=== PATIENT | female | born 1950 | race Caucasian/White ===

== ENCOUNTER 2017-05-21 14:48 | Inpatient (IN) | payer MEDICARE ==
[~2017-05-21] VITALS: Ht 162.6 cm; Wt 115.7 kg
[2017-05-21] VITALS (8 sets, daily range): BP systolic 97–134; BP diastolic 62–74
[~2017-05-21 14:48] MED LIST: CRESTOR20 MG PO; DIPH-121 PO; IBUP-1027 PO; LEVO88TA2 PO; VORT10TA PO
[2017-05-21 15:18] LABS: BASO % 0 % (0-3); EOS % 0 % (0-3); HEMATOCRIT 29.2 % (36.0-47.0); HEMOGLOBIN 9.7 g/dL (12.0-15.5); LYMPH # 1.8 x10^3/uL (1.0-4.8); LYMPH % 10 % (24-48); MEAN CORPUSCULAR HEMOGLOBIN 33 pg (25-35); MEAN CORPUSCULAR HGB CONC 33 g/dL (31-37); MEAN CORPUSCULAR VOLUME 98 fL (79-100); MONO % 5 % (0-9); NEUT % 85 % (31-73); PLATELET COUNT 367 x10^3/uL (140-400); RED BLOOD COUNT 2.98 x10^6/uL (3.50-5.40); RED CELL DISTRIBUTION WIDTH 13.3 % (11.5-14.5); WHITE BLOOD COUNT 18.5 x10^3/uL (4.0-11.0)
[2017-05-21 15:25] LABS: CALCIUM 8.2 mg/dL (8.5-10.1); CREATININE 1.2 mg/dL (0.6-1.0); GFR 44.5
--- NOTE | 2017-05-21 15:32 | EKG ---
[facility] [address] [place] [address] Test Date: 2017-05-21 Test Time: 15:19:21 Pat Name: NATHAN BAIN Department: Room: Gender: F Toe Former: : 1950 Requested By: ROMEO LAGUNA Order Number: [id number] Reading MD: Karl Johnston Measurements Intervals [place] Rate: 125 P: 26 TX: 132 QRS: 12 QRSD: 74 T: 51 QT: 306 QTc: 443 Interpretive Statements SINUS TACHYCARDIA RI6.01 Unconfirmed report Compared to ECG 06/03/2015 08:33:31 Sinus rhythm no longer present Electronically Signed On 06-09-2017 10:36:09 CDT by Karl Johnston
[2017-05-21 15:34] LABS: INR 1.1 (0.8-1.1); PROTHROMBIN TIME PATIENT 13.5 SEC (11.7-14.0)
[2017-05-21 15:43] LABS: ALBUMIN 3.3 g/dL (3.4-5.0); ALBUMIN/GLOBULIN RATIO 1.2 (1.0-1.7); TOTAL BILIRUBIN 0.3 mg/dL (0.2-1.0)
[2017-05-21] MEDS ORDERED: IV NORMAL SALINE 1000ML BAG 1,000 ML IV ONE (16:00)
--- NOTE | 2017-05-21 16:06 | RAD ---
EXAM: CHEST 1 VIEW History: GI bleed COMPARISON: None available TECHNIQUE: Single portable radiograph of the chest FINDINGS: The cardiac silhouette is unremarkable. The lungs are clear bilaterally. The costophrenic sulci are clear and well demarcated. IMPRESSION: No radiographic evidence of an acute cardiopulmonary process.
[2017-05-21] MEDS ORDERED: MORPHINE SULFATE 2 MG/ML DISP.SYRIN. IV PRN (16:45)
[2017-05-21] MEDS ORDERED: ONDANSETRON PF 4 MG/2 ML VIAL. IV PRN (16:45)
[2017-05-21] MEDS ORDERED: ACETAMINOPHEN 325 MG TABLET. PO PRN (16:45)
[2017-05-21 17:02] LABS: OVALOCYTES OCC; PLT ESTIMATE INCREASED (ADEQUATE); POLYCHROMASIA SLIGHT; TARGET CELLS OCC
--- NOTE | 2017-05-21 19:59 | PHYS DOC ---
Past Medical History Past Medical History: Depression, Diverticulitis, High Cholesterol Additional Past Medical Histor: Thyroid DZ,GI BLEED Past Surgical History: Appendectomy, Cholecystectomy, Hysterectomy Alcohol Use: None Drug Use: None Adult General Chief Complaint Chief Complaint: BLOODY STOOL HPI HPI Patient is a 67 year old female who presents here today secondary to rectal bleeding. Patient reports she has a history significant for diverticulitis. Patient reports she had 2 episodes of syncope today. Patient reports that she went to the bathroom and she had a massive amount of bloody stools. Patient reports she does feel dizzy. Patient reports positive nausea and vomiting for 1 day. Patient has any fevers shakes chills. Patient complaining of left lower quadrant abdominal pain. Patient admits to diarrhea. Patient has any hypertension diabetes liver kidney or lung problems. Patient denies any prior strokes. Patient had a cholecystectomy and a hysterectomy in the past. Patient does not smoke drink or do any drugs. Review of systems: Constitutional: Denies fever or chills Eyes: Denies change in visual acuity, redness, or eye pain HENT: Denies nasal congestion or sore throat All other review systems are negative except as documented in the history of present illness portion. Physical exam: Constitutional: Well developed, well nourished, no acute distress, non-toxic appearance. HENT: Normocephalic, atraumatic, bilateral external ears normal, oropharynx moist, no oral exudates, nose normal. Eyes: PERRLA, EOMI, conjunctiva normal, no discharge. Neck: Normal range of motion, no tenderness, supple, no stridor. Cardiovascular:Heart rate regular rhythm, Lungs & Thorax: Bilateral breath sounds clear to auscultation Abdomen: Bowel sounds normal, soft, no tenderness, no masses, no pulsatile masses. Skin: Warm, dry, no erythema, no rash. Back: No tenderness, no CVA tenderness. Extremities: No tenderness, no cyanosis, no clubbing, ROM intact, no edema. Neurologic: Alert and oriented X 3, normal motor function, normal sensory function, no focal deficits noted. Psychologic: Affect normal, judgement normal, mood normal. Rectal shows gross heme positive bloody stool. Assessment and plan 67-year-old female with lower GI bleed likely secondary to her history diverticulitis. Patient is anemic and tachycardic to heart rate of 120. Patient will be admitted to the ICU for further management of her acute GI bleed. Patient was typed and crossed and given 2 units of packed red blood cells. I discussed the case with Dr. Constantino's service for his PA as well as Dr. Velez agrees with the current plan to admit the patient. Critical care time of 35 minutes were utilizing a treatment and management this patient's lower GI bleed. Was exclusive of all procedures. Current Medications Current Medications Current Medications Medications (Trade) Dose Ordered Sig/Tatiana Start Time Stop Time Status Last Admin Dose Admin Acetaminophen (Tylenol) 650 mg PRN Q4HRS PRN 05/21/17 16:45 05/22/17 16:44 Morphine Sulfate 2 mg PRN Q2HR PRN 05/21/17 16:45 05/22/17 16:44 Ondansetron HCl (Zofran) 4 mg PRN Q8HRS PRN 05/21/17 16:45 05/22/17 16:44 Sodium Chloride 1,000 ml @ 125 mls/hr Q8H 05/21/17 16:36 05/22/17 16:35 Allergies Allergies Allergies Coded Allergies Type Severity Reaction Last Updated Verified latex Allergy Intermediate 01/01/16 Yes Current Patient Data Vital Signs Vital Signs Date Time Temp Pulse Resp B/P (MAP) Pulse Ox O2 Delivery O2 Flow Rate FiO2 05/21/17 14:48 99.4 120 18 93/56 (68) 96 Room Air 99.4 EKG reveals sinus tachycardia [address]-T wave abnormalities. No evidence of ST elevation PR. Lab Values Laboratory Tests Test 05/21/17 15:04 White Blood Count 18.5 x10^3/uL (4.0-11.0) H Red Blood Count 2.98 x10^6/uL (3.50-5.40) L Hemoglobin 9.7 g/dL (12.0-15.5) L Hematocrit 29.2 % (36.0-47.0) L Mean Corpuscular Volume 98 fL (79-100) Mean Corpuscular Hemoglobin 33 pg (25-35) Mean Corpuscular Hemoglobin Concent 33 g/dL (31-37) Red Cell Distribution Width 13.3 % (11.5-14.5) Platelet Count 367 x10^3/uL (140-400) Neutrophils (%) (Auto) 85 % (31-73) H Lymphocytes (%) (Auto) 10 % (24-48) L Monocytes (%) (Auto) 5 % (0-9) Eosinophils (%) (Auto) 0 % (0-3) Basophils (%) (Auto) 0 % (0-3) Neutrophils # (Auto) 15.8 x10^3uL (1.8-7.7) H Lymphocytes # (Auto) 1.8 x10^3/uL (1.0-4.8) Monocytes # (Auto) 0.9 x10^3/uL (0.0-1.1) Eosinophils # (Auto) 0.0 x10^3/uL (0.0-0.7) Basophils # (Auto) 0.0 x10^3/uL (0.0-0.2) Segmented Neutrophils % 93 % (35-66) H Lymphocytes % 7 % (24-48) L Platelet Estimate Increased (ADEQUATE) Large Platelets Occ Polychromasia Slight Target Cells Occ Ovalocytes Occ Prothrombin Time 13.5 SEC (11.7-14.0) Prothrombin Time INR 1.1 (0.8-1.1) Sodium Level 143 mmol/L (136-145) Potassium Level 4.0 mmol/L (3.5-5.1) Chloride Level 107 mmol/L (98-107) Carbon Dioxide Level 23 mmol/L (21-32) Anion Gap 13 (6-14) Blood Urea Nitrogen 32 mg/dL (7-20) H Creatinine 1.2 mg/dL (0.6-1.0) H Estimated GFR (Cockcroft-Gault) 44.5 BUN/Creatinine Ratio 27 (6-20) H Glucose Level 156 mg/dL (70-99) H Calcium Level 8.2 mg/dL (8.5-10.1) L Total Bilirubin 0.3 mg/dL (0.2-1.0) Aspartate Amino Transferase (AST) 12 U/L (15-37) L Alanine Aminotransferase (ALT) 30 U/L (14-59) Alkaline Phosphatase 89 U/L (46-116) Troponin I Quantitative < 0.017 ng/mL (0.000-0.055) Total Protein 6.0 g/dL (6.4-8.2) L Albumin 3.3 g/dL (3.4-5.0) L Albumin/Globulin Ratio 1.2 (1.0-1.7) Laboratory Tests 05/21/17 15:04 Laboratory Tests 05/21/17 15:04 EKG EKG [] Radiology/Procedures Radiology/Procedures [] Course & Med Decision Making Course & Med Decision Making Pertinent Labs and Imaging studies reviewed. (See chart for details) [] Dragon Disclaimer Dragon Disclaimer This electronic medical record was generated, in whole or in part, using a voice recognition dictation system. Departure Departure Impression: Primary Impression: GI bleed Additional Impression: Tachycardia Disposition: ADMITTED INPATIENT Admitting Physician: Mo Brown Condition: GOOD Referrals: MO BROWN MD (PCP) Problem Qualifiers ROMEO LAGUNA MD May 21, 2017 19:59
[2017-05-21 20:58] LABS: HEMATOCRIT 25.8 % (36.0-47.0); HEMOGLOBIN 8.7 g/dL (12.0-15.5); RED BLOOD COUNT 2.66 x10^6/uL (3.50-5.40); RED CELL DISTRIBUTION WIDTH 13.4 % (11.5-14.5); WHITE BLOOD COUNT 16.4 x10^3/uL (4.0-11.0)
[2017-05-22] VITALS (22 sets, daily range): BP systolic 98–170; BP diastolic 54–79
[2017-05-22] MEDS: IV NORMAL SALINE 1000ML BAG 1,000 ML IV SCH ×3 (00:58→22:01)
[2017-05-22 05:01] LABS: BASO % 0 % (0-3); EOS % 0 % (0-3); HEMATOCRIT 22.9 % (36.0-47.0); HEMOGLOBIN 7.9 g/dL (12.0-15.5); LYMPH # 2.7 x10^3/uL (1.0-4.8); LYMPH % 21 % (24-48); MEAN CORPUSCULAR HEMOGLOBIN 33 pg (25-35); MEAN CORPUSCULAR HGB CONC 34 g/dL (31-37); MEAN CORPUSCULAR VOLUME 97 fL (79-100); MONO % 9 % (0-9); NEUT % 70 % (31-73); PLATELET COUNT 290 x10^3/uL (140-400); RED BLOOD COUNT 2.36 x10^6/uL (3.50-5.40); RED CELL DISTRIBUTION WIDTH 13.5 % (11.5-14.5); WHITE BLOOD COUNT 13.1 x10^3/uL (4.0-11.0)
--- NOTE | 2017-05-22 09:02 | PDOC ---
GENERAL General: blood pressures low side and tachycardic at 110 bpm. awake and alert. chest clear, heart mildly tachycardic, and abdomen benign. Hb down to 7.9 this am. will continue to monitor in icu at least till GI sees and clears to go up to telemetry. see dictated H&P. Problems: VITAL SIGNS Vital Signs: Vital Signs Date Time Temp Pulse Resp B/P (MAP) Pulse Ox O2 Delivery O2 Flow Rate FiO2 05/22/17 06:00 114 18 120/57 (78) 96 05/22/17 04:00 Room Air 05/22/17 04:00 98.8 98.8 ALLERGIES Allergies: Allergies Coded Allergies Type Severity Reaction Last Updated Verified latex Allergy Intermediate 01/01/16 Yes MEDS Medications: Current Medications Medications (Trade) Dose Ordered Sig/Tatiana Start Time Stop Time Status Last Admin Dose Admin Acetaminophen (Tylenol) 650 mg PRN Q4HRS PRN 05/21/17 16:45 05/22/17 16:44 Morphine Sulfate 2 mg PRN Q2HR PRN 05/21/17 16:45 05/22/17 16:44 Ondansetron HCl (Zofran) 4 mg PRN Q8HRS PRN 05/21/17 16:45 05/22/17 16:44 Sodium Chloride 1,000 ml @ 125 mls/hr Q8H 05/21/17 16:36 05/22/17 16:35 05/22/17 00:58 125 MLS/HR LAB Lab: Laboratory Tests Test 05/21/17 15:04 05/21/17 20:30 05/22/17 04:00 White Blood Count 18.5 x10^3/uL (4.0-11.0) 16.4 x10^3/uL (4.0-11.0) 13.1 x10^3/uL (4.0-11.0) Red Blood Count 2.98 x10^6/uL (3.50-5.40) 2.66 x10^6/uL (3.50-5.40) 2.36 x10^6/uL (3.50-5.40) Hemoglobin 9.7 g/dL (12.0-15.5) 8.7 g/dL (12.0-15.5) 7.9 g/dL (12.0-15.5) Hematocrit 29.2 % (36.0-47.0) 25.8 % (36.0-47.0) 22.9 % (36.0-47.0) Mean Corpuscular Volume 98 fL (79-100) 97 fL (79-100) 97 fL (79-100) Mean Corpuscular Hemoglobin 33 pg (25-35) 33 pg (25-35) 33 pg (25-35) Mean Corpuscular Hemoglobin Concent 33 g/dL (31-37) 34 g/dL (31-37) 34 g/dL (31-37) Red Cell Distribution Width 13.3 % (11.5-14.5) 13.4 % (11.5-14.5) 13.5 % (11.5-14.5) Platelet Count 367 x10^3/uL (140-400) 318 x10^3/uL (140-400) 290 x10^3/uL (140-400) Neutrophils (%) (Auto) 85 % (31-73) 70 % (31-73) Lymphocytes (%) (Auto) 10 % (24-48) 21 % (24-48) Monocytes (%) (Auto) 5 % (0-9) 9 % (0-9) Eosinophils (%) (Auto) 0 % (0-3) 0 % (0-3) Basophils (%) (Auto) 0 % (0-3) 0 % (0-3) Neutrophils # (Auto) 15.8 x10^3uL (1.8-7.7) 9.1 x10^3uL (1.8-7.7) Lymphocytes # (Auto) 1.8 x10^3/uL (1.0-4.8) 2.7 x10^3/uL (1.0-4.8) Monocytes # (Auto) 0.9 x10^3/uL (0.0-1.1) 1.1 x10^3/uL (0.0-1.1) Eosinophils # (Auto) 0.0 x10^3/uL (0.0-0.7) 0.0 x10^3/uL (0.0-0.7) Basophils # (Auto) 0.0 x10^3/uL (0.0-0.2) 0.0 x10^3/uL (0.0-0.2) Segmented Neutrophils % 93 % (35-66) Lymphocytes % 7 % (24-48) Platelet Estimate Increased (ADEQUATE) Large Platelets Occ Polychromasia Slight Target Cells Occ Ovalocytes Occ Prothrombin Time 13.5 SEC (11.7-14.0) Prothromb Time International Ratio 1.1 (0.8-1.1) Sodium Level 143 mmol/L (136-145) Potassium Level 4.0 mmol/L (3.5-5.1) Chloride Level 107 mmol/L (98-107) Carbon Dioxide Level 23 mmol/L (21-32) Anion Gap 13 (6-14) Blood Urea Nitrogen 32 mg/dL (7-20) Creatinine 1.2 mg/dL (0.6-1.0) Estimated GFR (Cockcroft-Gault) 44.5 BUN/Creatinine Ratio 27 (6-20) Glucose Level 156 mg/dL (70-99) Calcium Level 8.2 mg/dL (8.5-10.1) Total Bilirubin 0.3 mg/dL (0.2-1.0) Aspartate Amino Transf (AST/SGOT) 12 U/L (15-37) Alanine Aminotransferase (ALT/SGPT) 30 U/L (14-59) Alkaline Phosphatase 89 U/L (46-116) Troponin I Quantitative < 0.017 ng/mL (0.000-0.055) Total Protein 6.0 g/dL (6.4-8.2) Albumin 3.3 g/dL (3.4-5.0) Albumin/Globulin Ratio 1.2 (1.0-1.7) MO REED MD May 22, 2017 09:02
--- NOTE | 2017-05-22 10:09 | HP ---
ADMIT DATE: 05/21/2017 CHIEF COMPLAINT AND HISTORY OF PRESENT ILLNESS: This 67-year-old white female who is well known to me from followup in the office. The patient had a GI bleed beginning the night before admission with what she describes as more of a maroon kind of blood all over the bathroom. She had 2 episodes of syncope with this. She finally presented to the Emergency Room, where she had ongoing GI bleeding. Hemoglobin was in the 9s, was tachycardic, somewhat relatively hypotensive and admitted to the ICU for lower GI bleed. PAST MEDICAL HISTORY: Remarkable for depression, diverticulosis, hyperlipidemia, hypothyroidism, prior some GI bleeding but of a mild degree. PAST SURGICAL HISTORY: Remarkable for appendectomy, cholecystectomy and hysterectomy. MEDICATIONS: Brought with the patient, listed on the computer and have been addressed. ALLERGIES: SHE IS ALLERGIC TO LATEX. SOCIAL HISTORY: She is nonsmoker, nondrinker, does not use drugs. She is , lives at home alone currently, but has a son that lives with her off and on. FAMILY HISTORY: Noncontributory. REVIEW OF SYSTEMS: Remarkable for her still feeling quite weak compared to normal. She denies any abdominal pain with this. She does note a little bit of shortness of breath when she tries to move around which is new. PHYSICAL EXAMINATION: GENERAL: She is well-developed, well-nourished white female, in no acute distress. VITAL SIGNS: Stable. She is afebrile, blood pressures are in the upper 90s, pulse is about approximately 110. HEAD, EYES, EARS, NOSE AND THROAT: Remarkable for some mild pallor of the conjunctiva. NECK: Supple, without adenopathy or thyromegaly. CHEST: Clear to auscultation and percussion. HEART: Slightly tachycardic. Regular without S3, S4, or murmur. ABDOMEN: Soft, nontender, without hepatosplenomegaly or mass. EXTREMITIES: Without cyanosis, clubbing or edema. NEUROLOGIC: She is intact. LABORATORY DATA: Hemoglobin has dropped to 7.9 in the morning following admission from the 9s. She has had no further stools at this point in time with blood. IMPRESSION: Lower gastrointestinal bleed with anemia, multiple other problems listed above. PLAN: The patient has been admitted. She has been monitored in the ICU. GI has been consulted, IV has been placed. Blood has been typed and crossed and ready for transfusion. The patient will be monitored, managed and treated appropriately. MO REED MD DR: VEGA/alfredo JOB#: [id number] / [id number]
--- NOTE | 2017-05-22 11:28 | PDOC2 ---
CONSULT Date of Consult Date of Consult DATE: 05/22/17 TIME: 11:25 Reason for Consult Reason for Consult: Acute blood loss anemia/rectal bleed/hx diverticular bleed Current Problem List Problem List Problems Medical Problems: (1) GI bleed Status: Acute (2) Tachycardia Status: Acute Current Medications Current Medications Current Medications Sodium Chloride 1,000 ml @ 1,000 mls/hr 1X ONCE IV Last administered on 17:02; Start 05/21/17 at 16:00; Stop 05/21/17 at 16:59; Status DC Ondansetron HCl (Zofran) 4 mg PRN Q8HRS PRN IV NAUSEA/VOMITING; Start 05/21/17 at 16:45; Stop 05/22/17 at 16:44 Morphine Sulfate 2 mg PRN Q2HR PRN IV PAIN; Start 05/21/17 at 16:45; Stop 05/22 at 16:44 Sodium Chloride 1,000 ml @ 125 mls/hr Q8H IV Last administered on 05/22/17 09 :15; Start 05/21/17 at 16:36; Stop 05/22/17 at 16:35 Acetaminophen (Tylenol) 650 mg PRN Q4HRS PRN PO FEVER; Start 05/21/17 at 16:45 ; Stop 05/22/17 at 16:44 Active Scripts Active Reported Brintellix (Vortioxetine) 10 Mg Tablet 10 Mg PO DAILY Crestor (Rosuvastatin Calcium) 20 Mg Tablet 20 Mg PO HS Synthroid (Levothyroxine Sodium) 88 Mcg Tablet 88 Mcg PO DAILYAC Ibuprofen 400 Mg Tablet 200 Mg PO PRN Q6HRS PRN Benadryl Allergy (Diphenhydramine Hcl) 12.5 Mg/5 Ml Liquid 12.5 Mg PO PRN DAILY PRN Allergies Allergies: Coded Allergies: latex (Verified Allergy, Intermediate, 01/01/16) Vitals VITALS Vital Signs Date Time Temp Pulse Resp B/P (MAP) Pulse Ox O2 Delivery O2 Flow Rate FiO2 05/22/17 10:48 97.7 112 14 129/64 (85) 98 Room Air 97.7 Labs Labs Laboratory Tests Test 05/21/17 15:04 05/21/17 20:30 05/22/17 04:00 White Blood Count 18.5 x10^3/uL (4.0-11.0) 16.4 x10^3/uL (4.0-11.0) 13.1 x10^3/uL (4.0-11.0) Red Blood Count 2.98 x10^6/uL (3.50-5.40) 2.66 x10^6/uL (3.50-5.40) 2.36 x10^6/uL (3.50-5.40) Hemoglobin 9.7 g/dL (12.0-15.5) 8.7 g/dL (12.0-15.5) 7.9 g/dL (12.0-15.5) Hematocrit 29.2 % (36.0-47.0) 25.8 % (36.0-47.0) 22.9 % (36.0-47.0) Mean Corpuscular Volume 98 fL (79-100) 97 fL (79-100) 97 fL (79-100) Mean Corpuscular Hemoglobin 33 pg (25-35) 33 pg (25-35) 33 pg (25-35) Mean Corpuscular Hemoglobin Concent 33 g/dL (31-37) 34 g/dL (31-37) 34 g/dL (31-37) Red Cell Distribution Width 13.3 % (11.5-14.5) 13.4 % (11.5-14.5) 13.5 % (11.5-14.5) Platelet Count 367 x10^3/uL (140-400) 318 x10^3/uL (140-400) 290 x10^3/uL (140-400) Neutrophils (%) (Auto) 85 % (31-73) 70 % (31-73) Lymphocytes (%) (Auto) 10 % (24-48) 21 % (24-48) Monocytes (%) (Auto) 5 % (0-9) 9 % (0-9) Eosinophils (%) (Auto) 0 % (0-3) 0 % (0-3) Basophils (%) (Auto) 0 % (0-3) 0 % (0-3) Neutrophils # (Auto) 15.8 x10^3uL (1.8-7.7) 9.1 x10^3uL (1.8-7.7) Lymphocytes # (Auto) 1.8 x10^3/uL (1.0-4.8) 2.7 x10^3/uL (1.0-4.8) Monocytes # (Auto) 0.9 x10^3/uL (0.0-1.1) 1.1 x10^3/uL (0.0-1.1) Eosinophils # (Auto) 0.0 x10^3/uL (0.0-0.7) 0.0 x10^3/uL (0.0-0.7) Basophils # (Auto) 0.0 x10^3/uL (0.0-0.2) 0.0 x10^3/uL (0.0-0.2) Segmented Neutrophils % 93 % (35-66) Lymphocytes % 7 % (24-48) Platelet Estimate Increased (ADEQUATE) Large Platelets Occ Polychromasia Slight Target Cells Occ Ovalocytes Occ Prothrombin Time 13.5 SEC (11.7-14.0) Prothromb Time International Ratio 1.1 (0.8-1.1) Sodium Level 143 mmol/L (136-145) Potassium Level 4.0 mmol/L (3.5-5.1) Chloride Level 107 mmol/L (98-107) Carbon Dioxide Level 23 mmol/L (21-32) Anion Gap 13 (6-14) Blood Urea Nitrogen 32 mg/dL (7-20) Creatinine 1.2 mg/dL (0.6-1.0) Estimated GFR (Cockcroft-Gault) 44.5 BUN/Creatinine Ratio 27 (6-20) Glucose Level 156 mg/dL (70-99) Calcium Level 8.2 mg/dL (8.5-10.1) Total Bilirubin 0.3 mg/dL (0.2-1.0) Aspartate Amino Transf (AST/SGOT) 12 U/L (15-37) Alanine Aminotransferase (ALT/SGPT) 30 U/L (14-59) Alkaline Phosphatase 89 U/L (46-116) Troponin I Quantitative < 0.017 ng/mL (0.000-0.055) Total Protein 6.0 g/dL (6.4-8.2) Albumin 3.3 g/dL (3.4-5.0) Albumin/Globulin Ratio 1.2 (1.0-1.7) Laboratory Tests Test 05/21/17 15:04 05/21/17 20:30 05/22/17 04:00 White Blood Count 18.5 x10^3/uL (4.0-11.0) 16.4 x10^3/uL (4.0-11.0) 13.1 x10^3/uL (4.0-11.0) Red Blood Count 2.98 x10^6/uL (3.50-5.40) 2.66 x10^6/uL (3.50-5.40) 2.36 x10^6/uL (3.50-5.40) Hemoglobin 9.7 g/dL (12.0-15.5) 8.7 g/dL (12.0-15.5) 7.9 g/dL (12.0-15.5) Hematocrit 29.2 % (36.0-47.0) 25.8 % (36.0-47.0) 22.9 % (36.0-47.0) Mean Corpuscular Volume 98 fL (79-100) 97 fL (79-100) 97 fL (79-100) Mean Corpuscular Hemoglobin 33 pg (25-35) 33 pg (25-35) 33 pg (25-35) Mean Corpuscular Hemoglobin Concent 33 g/dL (31-37) 34 g/dL (31-37) 34 g/dL (31-37) Red Cell Distribution Width 13.3 % (11.5-14.5) 13.4 % (11.5-14.5) 13.5 % (11.5-14.5) Platelet Count 367 x10^3/uL (140-400) 318 x10^3/uL (140-400) 290 x10^3/uL (140-400) Neutrophils (%) (Auto) 85 % (31-73) 70 % (31-73) Lymphocytes (%) (Auto) 10 % (24-48) 21 % (24-48) Monocytes (%) (Auto) 5 % (0-9) 9 % (0-9) Eosinophils (%) (Auto) 0 % (0-3) 0 % (0-3) Basophils (%) (Auto) 0 % (0-3) 0 % (0-3) Neutrophils # (Auto) 15.8 x10^3uL (1.8-7.7) 9.1 x10^3uL (1.8-7.7) Lymphocytes # (Auto) 1.8 x10^3/uL (1.0-4.8) 2.7 x10^3/uL (1.0-4.8) Monocytes # (Auto) 0.9 x10^3/uL (0.0-1.1) 1.1 x10^3/uL (0.0-1.1) Eosinophils # (Auto) 0.0 x10^3/uL (0.0-0.7) 0.0 x10^3/uL (0.0-0.7) Basophils # (Auto) 0.0 x10^3/uL (0.0-0.2) 0.0 x10^3/uL (0.0-0.2) Segmented Neutrophils % 93 % (35-66) Lymphocytes % 7 % (24-48) Platelet Estimate Increased (ADEQUATE) Large Platelets Occ Polychromasia Slight Target Cells Occ Ovalocytes Occ Prothrombin Time 13.5 SEC (11.7-14.0) Prothromb Time International Ratio 1.1 (0.8-1.1) Sodium Level 143 mmol/L (136-145) Potassium Level 4.0 mmol/L (3.5-5.1) Chloride Level 107 mmol/L (98-107) Carbon Dioxide Level 23 mmol/L (21-32) Anion Gap 13 (6-14) Blood Urea Nitrogen 32 mg/dL (7-20) Creatinine 1.2 mg/dL (0.6-1.0) Estimated GFR (Cockcroft-Gault) 44.5 BUN/Creatinine Ratio 27 (6-20) Glucose Level 156 mg/dL (70-99) Calcium Level 8.2 mg/dL (8.5-10.1) Total Bilirubin 0.3 mg/dL (0.2-1.0) Aspartate Amino Transf (AST/SGOT) 12 U/L (15-37) Alanine Aminotransferase (ALT/SGPT) 30 U/L (14-59) Alkaline Phosphatase 89 U/L (46-116) Troponin I Quantitative < 0.017 ng/mL (0.000-0.055) Total Protein 6.0 g/dL (6.4-8.2) Albumin 3.3 g/dL (3.4-5.0) Albumin/Globulin Ratio 1.2 (1.0-1.7) Assessment/Plan Assessment/Plan Rectal bleed- with acute blood loss anemia, most likely secondary to recurrent diverticular bleed. Ischemic colitis, PUD, and/or SB source possible as well Plan serial cbcs/transfusionsal support to maintain Hg >8 acid suppressive therapy bleeding scan and/or EGD if bleeding resumes Ful note dictated MICHEAL GODDARD MD May 22, 2017 11:28
[2017-05-22] MEDS: PANTOPRAZOLE 40 MG TABLET.DR. PO SCH (12:18)
[2017-05-22 19:07] LABS: BASO # 0.1 x10^3/uL (0.0-0.2); BASO % 1 % (0-3); EOS % 1 % (0-3); HEMATOCRIT 23.2 % (36.0-47.0); HEMOGLOBIN 7.7 g/dL (12.0-15.5); LYMPH # 3.1 x10^3/uL (1.0-4.8); LYMPH % 27 % (24-48); MEAN CORPUSCULAR HEMOGLOBIN 33 pg (25-35); MEAN CORPUSCULAR HGB CONC 33 g/dL (31-37); MEAN CORPUSCULAR VOLUME 99 fL (79-100); MONO % 7 % (0-9); NEUT % 65 % (31-73); PLATELET COUNT 293 x10^3/uL (140-400); RED BLOOD COUNT 2.36 x10^6/uL (3.50-5.40); RED CELL DISTRIBUTION WIDTH 13.8 % (11.5-14.5); WHITE BLOOD COUNT 11.7 x10^3/uL (4.0-11.0)
--- NOTE | 2017-05-22 23:55 | CONS ---
DATE OF CONSULTATION: 05/22/2017 REASON FOR CONSULTATION: Hematochezia and acute blood loss anemia. HISTORY OF PRESENT ILLNESS: This is a 67-year-old female with past medical history significant for diverticular disease, hyperlipidemia, hypothyroidism, status post appendectomy, hysterectomy, cholecystectomy, was admitted to [facility] with rectal bleeding, had syncopal episodes at home. Finally, called 911, she was then brought to the hospital. Denies any NSAID use and/or blood thinners. Previous colonoscopy did reveal diverticular disease in the past year. Denies any coffee-ground emesis or hematemesis at this time, has been admitted with a slight drop in her hemoglobin and hematocrit since admission, but no further bleeding. PAST MEDICAL AND SURGICAL HISTORY: Hypothyroidism, hyperlipidemia, history of diverticular bleeds, depression, status post appendectomy, cholecystectomy, hysterectomy. ALLERGIES: TO LATEX. MEDICATIONS: Include morphine, Zofran and acetaminophen. SOCIAL HISTORY: She lives alone. Does not drink or smoke. FAMILY HISTORY: Noncontributory. REVIEW OF SYSTEMS: Per records. PHYSICAL EXAMINATION: GENERAL: Reveals a pale white female who is alert, cooperative, in no acute distress. VITAL SIGNS: Temperature 97.7, pulse 112, respiratory rate 14, blood pressure is 129/64. HEENT: Normocephalic and atraumatic head. Pupils and extraocular muscles not tested. Sclerae anicteric. NECK: Supple. LUNGS: Clear. CARDIOVASCULAR: Reveals an S1, S2 without S3, S4 or appreciable murmur. ABDOMEN: Reveals a soft abdomen, normal bowel sounds without appreciable hepatosplenomegaly. EXTREMITIES: Reveals no cyanosis, clubbing or edema. Multiple surgical incisions are noted. IMPRESSION: Rectal bleeding, acute blood loss anemia, most likely secondary to recurrent diverticular bleed. We will add proton pump therapy to her medical regimen. Follow serial blood counts and consider upper endoscopy. The patient should continue with blood as previous colonoscopy has been significant only for the diverticular disease. I would like to thank Dr. Kevin tobias for allowing us to consult and participate in patient's care. MICHEAL GODDARD MD DR: JOSE DAVID/alfredo JOB#: [id number] / [id number]
[2017-05-23] VITALS (25 sets, daily range): BP systolic 98–159; BP diastolic 46–84
[2017-05-23 06:08] LABS: BASO % 1 % (0-3); EOS % 3 % (0-3); HEMOGLOBIN 7.1 g/dL (12.0-15.5); LYMPH # 2.1 x10^3/uL (1.0-4.8); LYMPH % 28 % (24-48); MEAN CORPUSCULAR HEMOGLOBIN 33 pg (25-35); MEAN CORPUSCULAR HGB CONC 35 g/dL (31-37); MEAN CORPUSCULAR VOLUME 97 fL (79-100); MONO % 8 % (0-9); NEUT % 61 % (31-73); PLATELET COUNT 269 x10^3/uL (140-400); RED BLOOD COUNT 2.13 x10^6/uL (3.50-5.40); RED CELL DISTRIBUTION WIDTH 13.6 % (11.5-14.5); WHITE BLOOD COUNT 7.6 x10^3/uL (4.0-11.0)
[2017-05-23 06:41] LABS: HEMATOCRIT 20.6 % (36.0-47.0)
[2017-05-23] MEDS: IV NORMAL SALINE 1000ML BAG 1,000 ML IV SCH ×2 (09:00→21:31)
[2017-05-23] MEDS: ACETAMINOPHEN 325 MG TABLET. PO PRN (10:42)
[2017-05-23] MEDS: PANTOPRAZOLE 40 MG TABLET.DR. PO SCH (10:42)
--- NOTE | 2017-05-23 12:13 | PDOC ---
G I PROGRESS NOTE Reason for Follow-up Acute blood loss anemia/hematochezia Subjective No further blood per rectum Physical Exam Lungs clear CV S1 S2 ABD +BS, soft, nontender Review of Relevant I have reviewed the following items gabriel (where applicable) has been applied. Labs Laboratory Tests Test 05/21/17 15:04 05/21/17 20:30 05/21/17 22:05 05/22/17 04:00 White Blood Count 18.5 x10^3/uL (4.0-11.0) 16.4 x10^3/uL (4.0-11.0) 13.1 x10^3/uL (4.0-11.0) Red Blood Count 2.98 x10^6/uL (3.50-5.40) 2.66 x10^6/uL (3.50-5.40) 2.36 x10^6/uL (3.50-5.40) Hemoglobin 9.7 g/dL (12.0-15.5) 8.7 g/dL (12.0-15.5) 7.9 g/dL (12.0-15.5) Hematocrit 29.2 % (36.0-47.0) 25.8 % (36.0-47.0) 22.9 % (36.0-47.0) Mean Corpuscular Volume 98 fL (79-100) 97 fL (79-100) 97 fL (79-100) Mean Corpuscular Hemoglobin 33 pg (25-35) 33 pg (25-35) 33 pg (25-35) Mean Corpuscular Hemoglobin Concent 33 g/dL (31-37) 34 g/dL (31-37) 34 g/dL (31-37) Red Cell Distribution Width 13.3 % (11.5-14.5) 13.4 % (11.5-14.5) 13.5 % (11.5-14.5) Platelet Count 367 x10^3/uL (140-400) 318 x10^3/uL (140-400) 290 x10^3/uL (140-400) Neutrophils (%) (Auto) 85 % (31-73) 70 % (31-73) Lymphocytes (%) (Auto) 10 % (24-48) 21 % (24-48) Monocytes (%) (Auto) 5 % (0-9) 9 % (0-9) Eosinophils (%) (Auto) 0 % (0-3) 0 % (0-3) Basophils (%) (Auto) 0 % (0-3) 0 % (0-3) Neutrophils # (Auto) 15.8 x10^3uL (1.8-7.7) 9.1 x10^3uL (1.8-7.7) Lymphocytes # (Auto) 1.8 x10^3/uL (1.0-4.8) 2.7 x10^3/uL (1.0-4.8) Monocytes # (Auto) 0.9 x10^3/uL (0.0-1.1) 1.1 x10^3/uL (0.0-1.1) Eosinophils # (Auto) 0.0 x10^3/uL (0.0-0.7) 0.0 x10^3/uL (0.0-0.7) Basophils # (Auto) 0.0 x10^3/uL (0.0-0.2) 0.0 x10^3/uL (0.0-0.2) Segmented Neutrophils % 93 % (35-66) Lymphocytes % 7 % (24-48) Platelet Estimate Increased (ADEQUATE) Large Platelets Occ Polychromasia Slight Target Cells Occ Ovalocytes Occ Prothrombin Time 13.5 SEC (11.7-14.0) Prothromb Time International Ratio 1.1 (0.8-1.1) Sodium Level 143 mmol/L (136-145) Potassium Level 4.0 mmol/L (3.5-5.1) Chloride Level 107 mmol/L (98-107) Carbon Dioxide Level 23 mmol/L (21-32) Anion Gap 13 (6-14) Blood Urea Nitrogen 32 mg/dL (7-20) Creatinine 1.2 mg/dL (0.6-1.0) Estimated GFR (Cockcroft-Gault) 44.5 BUN/Creatinine Ratio 27 (6-20) Glucose Level 156 mg/dL (70-99) Calcium Level 8.2 mg/dL (8.5-10.1) Total Bilirubin 0.3 mg/dL (0.2-1.0) Aspartate Amino Transf (AST/SGOT) 12 U/L (15-37) Alanine Aminotransferase (ALT/SGPT) 30 U/L (14-59) Alkaline Phosphatase 89 U/L (46-116) Troponin I Quantitative < 0.017 ng/mL (0.000-0.055) Total Protein 6.0 g/dL (6.4-8.2) Albumin 3.3 g/dL (3.4-5.0) Albumin/Globulin Ratio 1.2 (1.0-1.7) Nasal Screen MRSA (PCR) Negative (Negative) Test 05/22/17 18:35 05/23/17 05:40 White Blood Count 11.7 x10^3/uL (4.0-11.0) 7.6 x10^3/uL (4.0-11.0) Red Blood Count 2.36 x10^6/uL (3.50-5.40) 2.13 x10^6/uL (3.50-5.40) Hemoglobin 7.7 g/dL (12.0-15.5) 7.1 g/dL (12.0-15.5) Hematocrit 23.2 % (36.0-47.0) 20.6 % (36.0-47.0) Mean Corpuscular Volume 99 fL (79-100) 97 fL (79-100) Mean Corpuscular Hemoglobin 33 pg (25-35) 33 pg (25-35) Mean Corpuscular Hemoglobin Concent 33 g/dL (31-37) 35 g/dL (31-37) Red Cell Distribution Width 13.8 % (11.5-14.5) 13.6 % (11.5-14.5) Platelet Count 293 x10^3/uL (140-400) 269 x10^3/uL (140-400) Neutrophils (%) (Auto) 65 % (31-73) 61 % (31-73) Lymphocytes (%) (Auto) 27 % (24-48) 28 % (24-48) Monocytes (%) (Auto) 7 % (0-9) 8 % (0-9) Eosinophils (%) (Auto) 1 % (0-3) 3 % (0-3) Basophils (%) (Auto) 1 % (0-3) 1 % (0-3) Neutrophils # (Auto) 7.6 x10^3uL (1.8-7.7) 4.7 x10^3uL (1.8-7.7) Lymphocytes # (Auto) 3.1 x10^3/uL (1.0-4.8) 2.1 x10^3/uL (1.0-4.8) Monocytes # (Auto) 0.8 x10^3/uL (0.0-1.1) 0.6 x10^3/uL (0.0-1.1) Eosinophils # (Auto) 0.2 x10^3/uL (0.0-0.7) 0.2 x10^3/uL (0.0-0.7) Basophils # (Auto) 0.1 x10^3/uL (0.0-0.2) 0.0 x10^3/uL (0.0-0.2) Laboratory Tests Test 05/22/17 18:35 05/23/17 05:40 White Blood Count 11.7 x10^3/uL (4.0-11.0) 7.6 x10^3/uL (4.0-11.0) Red Blood Count 2.36 x10^6/uL (3.50-5.40) 2.13 x10^6/uL (3.50-5.40) Hemoglobin 7.7 g/dL (12.0-15.5) 7.1 g/dL (12.0-15.5) Hematocrit 23.2 % (36.0-47.0) 20.6 % (36.0-47.0) Mean Corpuscular Volume 99 fL (79-100) 97 fL (79-100) Mean Corpuscular Hemoglobin 33 pg (25-35) 33 pg (25-35) Mean Corpuscular Hemoglobin Concent 33 g/dL (31-37) 35 g/dL (31-37) Red Cell Distribution Width 13.8 % (11.5-14.5) 13.6 % (11.5-14.5) Platelet Count 293 x10^3/uL (140-400) 269 x10^3/uL (140-400) Neutrophils (%) (Auto) 65 % (31-73) 61 % (31-73) Lymphocytes (%) (Auto) 27 % (24-48) 28 % (24-48) Monocytes (%) (Auto) 7 % (0-9) 8 % (0-9) Eosinophils (%) (Auto) 1 % (0-3) 3 % (0-3) Basophils (%) (Auto) 1 % (0-3) 1 % (0-3) Neutrophils # (Auto) 7.6 x10^3uL (1.8-7.7) 4.7 x10^3uL (1.8-7.7) Lymphocytes # (Auto) 3.1 x10^3/uL (1.0-4.8) 2.1 x10^3/uL (1.0-4.8) Monocytes # (Auto) 0.8 x10^3/uL (0.0-1.1) 0.6 x10^3/uL (0.0-1.1) Eosinophils # (Auto) 0.2 x10^3/uL (0.0-0.7) 0.2 x10^3/uL (0.0-0.7) Basophils # (Auto) 0.1 x10^3/uL (0.0-0.2) 0.0 x10^3/uL (0.0-0.2) Medications Current Medications Sodium Chloride 1,000 ml @ 1,000 mls/hr 1X ONCE IV Last administered on 17:02; Start 05/21/17 at 16:00; Stop 05/21/17 at 16:59; Status DC Ondansetron HCl (Zofran) 4 mg PRN Q8HRS PRN IV NAUSEA/VOMITING; Start 05/21/17 at 16:45; Stop 05/22/17 at 16:44; Status DC Morphine Sulfate 2 mg PRN Q2HR PRN IV PAIN; Start 05/21/17 at 16:45; Stop 05/22 at 16:44; Status DC Sodium Chloride 1,000 ml @ 125 mls/hr Q8H IV Last administered on 05/22/17 09 :15; Start 05/21/17 at 16:36; Stop 05/22/17 at 16:35; Status DC Acetaminophen (Tylenol) 650 mg PRN Q4HRS PRN PO FEVER; Start 05/21/17 at 16:45 ; Stop 05/22/17 at 16:44; Status DC Pantoprazole Sodium (Protonix) 40 mg DAILYAC PO Last administered on 05/23/17 10:42; Start 05/22/17 at 12:00 Sodium Chloride 1,000 ml @ 100 mls/hr Q10H IV Last administered on 05/23/17 09:00; Start 05/22/17 at 22:00 Acetaminophen (Tylenol) 650 mg PRN Q4HRS PRN PO MILD PAIN / TEMP Last administered on 05/23/17 10:42; Start 05/23/17 at 08:45 Active Scripts Active Reported Brintellix (Vortioxetine) 10 Mg Tablet 10 Mg PO DAILY Crestor (Rosuvastatin Calcium) 20 Mg Tablet 20 Mg PO HS Synthroid (Levothyroxine Sodium) 88 Mcg Tablet 88 Mcg PO DAILYAC Ibuprofen 400 Mg Tablet 200 Mg PO PRN Q6HRS PRN Benadryl Allergy (Diphenhydramine Hcl) 12.5 Mg/5 Ml Liquid 12.5 Mg PO PRN DAILY PRN Vitals/I & O Vital Sign - Last 24 Hours 05/22/17 05/22/17 05/22/17 05/22/17 12:50 13:23 14:00 15:00 Temp 98.1 98.1 98.1 98.1 Pulse 102 110 110 112 Resp B/P (MAP) 131/59 (83) 123/56 (78) 144/72 (96) 126/61 (82) Pulse Ox 98 90 98 O2 Delivery Room Air Room Air Room Air Room Air 05/22/17 05/22/17 05/22/17 05/22/17 16:00 16:00 17:00 18:00 Temp 98.2 98.2 Pulse 102 106 104 Resp B/P (MAP) 139/73 (95) 107/54 (71) 170/79 (109) Pulse Ox 95 92 92 O2 Delivery Room Air Room Air Room Air Room Air 05/22/17 05/22/17 05/22/17 05/22/17 19:00 20:00 20:00 21:00 Temp 98.3 98.3 Pulse 101 102 100 Resp B/P (MAP) 123/59 (80) 125/64 (84) 116/61 (79) Pulse Ox 94 95 95 O2 Delivery Room Air Room Air Room Air Room Air 05/22/17 05/22/17 05/22/17 05/22/17 22:00 23:00 23:59 23:59 Temp 98.2 98.2 Pulse 97 94 100 Resp 20 20 20 B/P (MAP) 119/59 (79) 120/57 (78) 122/67 (85) Pulse Ox 95 94 93 O2 Delivery Room Air Room Air Room Air Room Air 05/23/17 05/23/17 05/23/17 05/23/17 01:00 02:00 03:00 04:00 Pulse 99 103 97 Resp 17 B/P (MAP) 110/48 (68) 114/61 (78) 115/69 (84) Pulse Ox 95 94 96 O2 Delivery Room Air Room Air Room Air Room Air 05/23/17 05/23/17 05/23/17 05/23/17 04:00 05:00 06:00 07:00 Temp 98.6 98.6 Pulse 101 98 100 104 Resp 17 21 B/P (MAP) 98/59 (72) 110/59 (76) 112/64 (80) 113/58 (76) Pulse Ox 93 95 93 95 O2 Delivery Room Air Room Air Room Air Room Air Intake and Output 05/23/17 05/23/17 05/24/17 15:00 23:00 07:00 Output Total 900 ml Balance -900 ml Problem List Problems Medical Problems: (1) GI bleed Status: Acute (2) Tachycardia Status: Acute Assessment Acute blood loss anemia- Hg drifting despite no further overt bleeding. will transfuse 1 unit PRBC, recheck Hg in am, diverticular source most likely, EGD/ bleeding scan if anemia worsens MICHEAL GODDARD MD May 23, 2017 12:13
--- NOTE | 2017-05-23 12:25 | PDOC ---
SUBJECTIVE Subjective no further bleeding clinically but Hb dropped significantly OBJECTIVE Vital Signs Vital Signs Date Time Temp Pulse Resp B/P (MAP) Pulse Ox O2 Delivery O2 Flow Rate FiO2 05/23/17 07:00 104 21 113/58 (76) 95 Room Air 05/23/17 06:00 100 17 112/64 (80) 93 Room Air 05/23/17 05:00 98 17 110/59 (76) 95 Room Air 05/23/17 04:00 98.6 101 20 98/59 (72) 93 Room Air 98.6 05/23/17 04:00 Room Air 05/23/17 03:00 97 17 115/69 (84) 96 Room Air 05/23/17 02:00 103 16 114/61 (78) 94 Room Air 05/23/17 01:00 99 20 110/48 (68) 95 Room Air 05/22/17 23:59 98.2 100 20 122/67 (85) 93 Room Air 98.2 05/22/17 23:59 Room Air 05/22/17 23:00 94 20 120/57 (78) 94 Room Air 05/22/17 22:00 97 20 119/59 (79) 95 Room Air 05/22/17 21:00 100 17 116/61 (79) 95 Room Air 05/22/17 20:00 98.3 102 15 125/64 (84) 95 Room Air 98.3 05/22/17 20:00 Room Air 05/22/17 19:00 101 15 123/59 (80) 94 Room Air 05/22/17 18:00 104 22 170/79 (109) 92 Room Air 05/22/17 17:00 106 19 107/54 (71) 92 Room Air 05/22/17 16:00 Room Air 05/22/17 16:00 98.2 102 17 139/73 (95) 95 Room Air 98.2 05/22/17 15:00 112 26 126/61 (82) 98 Room Air 05/22/17 14:00 110 29 144/72 (96) 90 Room Air 05/22/17 13:23 98.1 110 21 123/56 (78) 98 Room Air 98.1 05/22/17 12:50 98.1 102 20 131/59 (83) Room Air 98.1 I & O Intake and Output 05/24/17 07:00 Output Total 900 ml Balance -900 ml Output Urine Total 900 ml PHYSICAL EXAM Physical Exam lungs clear heart RRR abd soft ext no edema has L knee pain ASSESSMENT/PLAN Assessment/Plan 1-lower GI bleed, hematochezia 2-acute blood loss anemia , transfusion today Hb post transfusion and In AM 3-Hx diverticulosis 4-HTN 5-HLD 6-hypothyroidism continue to monitor Hb, trnsfusion today, Dr. Brown will resume care in AM Problems: COMMENT Lab Laboratory Tests Test 05/22/17 18:35 05/23/17 05:40 White Blood Count 11.7 x10^3/uL (4.0-11.0) 7.6 x10^3/uL (4.0-11.0) Red Blood Count 2.36 x10^6/uL (3.50-5.40) 2.13 x10^6/uL (3.50-5.40) Hemoglobin 7.7 g/dL (12.0-15.5) 7.1 g/dL (12.0-15.5) Hematocrit 23.2 % (36.0-47.0) 20.6 % (36.0-47.0) Mean Corpuscular Volume 99 fL (79-100) 97 fL (79-100) Mean Corpuscular Hemoglobin 33 pg (25-35) 33 pg (25-35) Mean Corpuscular Hemoglobin Concent 33 g/dL (31-37) 35 g/dL (31-37) Red Cell Distribution Width 13.8 % (11.5-14.5) 13.6 % (11.5-14.5) Platelet Count 293 x10^3/uL (140-400) 269 x10^3/uL (140-400) Neutrophils (%) (Auto) 65 % (31-73) 61 % (31-73) Lymphocytes (%) (Auto) 27 % (24-48) 28 % (24-48) Monocytes (%) (Auto) 7 % (0-9) 8 % (0-9) Eosinophils (%) (Auto) 1 % (0-3) 3 % (0-3) Basophils (%) (Auto) 1 % (0-3) 1 % (0-3) Neutrophils # (Auto) 7.6 x10^3uL (1.8-7.7) 4.7 x10^3uL (1.8-7.7) Lymphocytes # (Auto) 3.1 x10^3/uL (1.0-4.8) 2.1 x10^3/uL (1.0-4.8) Monocytes # (Auto) 0.8 x10^3/uL (0.0-1.1) 0.6 x10^3/uL (0.0-1.1) Eosinophils # (Auto) 0.2 x10^3/uL (0.0-0.7) 0.2 x10^3/uL (0.0-0.7) Basophils # (Auto) 0.1 x10^3/uL (0.0-0.2) 0.0 x10^3/uL (0.0-0.2) ISIDRO LEE MD May 23, 2017 12:25
[2017-05-23] MEDS ORDERED: DULO60CA6 PO (12:53)
[2017-05-23] MEDS: DULoxetine HCL 30 MG CAPSULE.DR PO SCH (14:27)
[2017-05-23] MEDS: LEVOTHYROXINE 88 MCG TABLET PO SCH (14:27)
[2017-05-23 18:21] LABS: HEMATOCRIT 25.2 % (36.0-47.0); HEMOGLOBIN 8.5 g/dL (12.0-15.5); RED BLOOD COUNT 2.64 x10^6/uL (3.50-5.40); RED CELL DISTRIBUTION WIDTH 14.6 % (11.5-14.5); WHITE BLOOD COUNT 7.5 x10^3/uL (4.0-11.0)
[2017-05-23] MEDS: ATORVASTATIN CALCIUM 40 MG TABLET. PO SCH (20:48)
[2017-05-24] VITALS (24 sets, daily range): BP systolic 111–164; BP diastolic 53–79
[2017-05-24] MEDS: IV NORMAL SALINE 1000ML BAG 1,000 ML IV SCH ×3 (05:41→18:15)
[2017-05-24 06:00] LABS: BASO % 1 % (0-3); EOS % 4 % (0-3); HEMATOCRIT 24.5 % (36.0-47.0); HEMOGLOBIN 8.3 g/dL (12.0-15.5); LYMPH # 1.7 x10^3/uL (1.0-4.8); LYMPH % 27 % (24-48); MEAN CORPUSCULAR HEMOGLOBIN 32 pg (25-35); MEAN CORPUSCULAR HGB CONC 34 g/dL (31-37); MEAN CORPUSCULAR VOLUME 96 fL (79-100); MONO % 9 % (0-9); NEUT % 60 % (31-73); PLATELET COUNT 267 x10^3/uL (140-400); RED BLOOD COUNT 2.56 x10^6/uL (3.50-5.40); RED CELL DISTRIBUTION WIDTH 14.7 % (11.5-14.5); WHITE BLOOD COUNT 6.3 x10^3/uL (4.0-11.0)
[2017-05-24 06:18] LABS: CREATININE 0.5 mg/dL (0.6-1.0); GFR 122.3; POTASSIUM 3.1 mmol/L (3.5-5.1)
[2017-05-24] MEDS: PANTOPRAZOLE 40 MG TABLET.DR. PO SCH (08:11)
[2017-05-24] MEDS: LEVOTHYROXINE 88 MCG TABLET PO SCH (08:11)
[2017-05-24] MEDS: DULoxetine HCL 30 MG CAPSULE.DR PO SCH (08:11)
--- NOTE | 2017-05-24 09:08 | PDOC ---
Subjective: Subjective: Feeling much better. No recurrent bleeding. Feels hungry, wants to go home - has a miniature Schnauzer to care for. Objective: Vital Signs: Vital Signs Date Time Temp Pulse Resp B/P (MAP) Pulse Ox O2 Delivery O2 Flow Rate FiO2 05/24/17 06:00 98 16 130/62 (84) 95 Room Air 05/24/17 04:00 98.9 98.9 Labs: Laboratory Tests Test 05/23/17 18:00 05/24/17 05:15 White Blood Count 7.5 x10^3/uL 6.3 x10^3/uL Red Blood Count 2.64 x10^6/uL 2.56 x10^6/uL Hemoglobin 8.5 g/dL 8.3 g/dL Hematocrit 25.2 % 24.5 % Mean Corpuscular Volume 95 fL 96 fL Mean Corpuscular Hemoglobin 32 pg 32 pg Mean Corpuscular Hemoglobin Concent 34 g/dL 34 g/dL Red Cell Distribution Width 14.6 % 14.7 % Platelet Count 275 x10^3/uL 267 x10^3/uL Neutrophils (%) (Auto) 60 % Lymphocytes (%) (Auto) 27 % Monocytes (%) (Auto) 9 % Eosinophils (%) (Auto) 4 % Basophils (%) (Auto) 1 % Neutrophils # (Auto) 3.8 x10^3uL Lymphocytes # (Auto) 1.7 x10^3/uL Monocytes # (Auto) 0.6 x10^3/uL Eosinophils # (Auto) 0.2 x10^3/uL Basophils # (Auto) 0.0 x10^3/uL Sodium Level 144 mmol/L Potassium Level 3.1 mmol/L Chloride Level 109 mmol/L Carbon Dioxide Level 26 mmol/L Anion Gap 9 Blood Urea Nitrogen 6 mg/dL Creatinine 0.5 mg/dL Estimated GFR (Cockcroft-Gault) 122.3 Glucose Level 94 mg/dL Calcium Level 8.0 mg/dL PE: GEN: NAD LUNGS: CTAB HEART: tachycardic ABD: S/ND/NT NEURO/PSYCH: A & O 3 A/P: Hematochezia - resolved -last colonoscopy 2015 -likely recurrent diverticular bleed Anemia -Hgb stable (8.5 yesterday, 8.3 today), improved s/p transfusion 1 unit pRBCs -- Stable Hgb w/o recurrent bleeding. Try clears, ADAT. Okay to transfer out of ICU per GI. DANYA FAJARDO May 24, 2017 09:08
[2017-05-24 15:23] LABS: HEMOGLOBIN 8.1 g/dL (12.0-15.5); RED BLOOD COUNT 2.46 x10^6/uL (3.50-5.40); RED CELL DISTRIBUTION WIDTH 14.7 % (11.5-14.5); WHITE BLOOD COUNT 8.7 x10^3/uL (4.0-11.0)
[2017-05-24] MEDS: ATORVASTATIN CALCIUM 40 MG TABLET. PO SCH (20:40)
[2017-05-24] MEDS: POTASSIUM CHLORIDE 10MEQ 100 ML IV SCH ×4 (20:41→22:30)
--- NOTE | 2017-05-24 20:43 | PDOC ---
GENERAL General: vss and afebrile. awake and alert. chest clear and heart regular and abdomen benign. Hb 8.3 and stable. no futher bleeding. GI help appreciated. continue follow H/H/ Problems: VITAL SIGNS Vital Signs: Vital Signs Date Time Temp Pulse Resp B/P (MAP) Pulse Ox O2 Delivery O2 Flow Rate FiO2 05/24/17 18:00 87 18 127/70 (89) 94 Room Air 05/24/17 16:00 98.7 98.7 I & O I & O Intake and Output 05/25/17 07:00 Output Total 1500 ml Balance -1500 ml Output Urine Total 1500 ml ALLERGIES Allergies: Allergies Coded Allergies Type Severity Reaction Last Updated Verified latex Allergy Intermediate 01/01/16 Yes MEDS Medications: Current Medications Medications (Trade) Dose Ordered Sig/Tatiana Start Time Stop Time Status Last Admin Dose Admin Acetaminophen (Tylenol) 650 mg PRN Q4HRS PRN 05/23/17 08:45 05/23/17 10:42 650 MG Atorvastatin Calcium (Lipitor) 80 mg QHS 05/23/17 21:00 05/24/17 20:40 80 MG Duloxetine HCl (Cymbalta) 120 mg DAILY 05/23/17 13:30 05/24/17 08:11 120 MG Levothyroxine Sodium (Synthroid) 88 mcg DAILYAC 05/23/17 13:30 05/24/17 08:11 88 MCG Morphine Sulfate 2 mg PRN Q2HR PRN 05/21/17 16:45 05/22/17 16:44 DC Ondansetron HCl (Zofran) 4 mg PRN Q8HRS PRN 05/21/17 16:45 05/22/17 16:44 DC Pantoprazole Sodium (Protonix) 40 mg DAILYAC 05/22/17 12:00 05/24/17 08:11 40 MG Potassium Chloride 100 ml @ 100 mls/hr Q1H 05/24/17 19:30 05/24/17 23:29 05/24/17 20:41 100 MLS/HR Sodium Chloride 1,000 ml @ 100 mls/hr Q10H 05/22/17 22:00 05/24/17 18:15 100 MLS/HR LAB Lab: Laboratory Tests Test 05/24/17 05:15 05/24/17 15:10 White Blood Count 6.3 x10^3/uL (4.0-11.0) 8.7 x10^3/uL (4.0-11.0) Red Blood Count 2.56 x10^6/uL (3.50-5.40) 2.46 x10^6/uL (3.50-5.40) Hemoglobin 8.3 g/dL (12.0-15.5) 8.1 g/dL (12.0-15.5) Hematocrit 24.5 % (36.0-47.0) 23.0 % (36.0-47.0) Mean Corpuscular Volume 96 fL (79-100) 94 fL (79-100) Mean Corpuscular Hemoglobin 32 pg (25-35) 33 pg (25-35) Mean Corpuscular Hemoglobin Concent 34 g/dL (31-37) 35 g/dL (31-37) Red Cell Distribution Width 14.7 % (11.5-14.5) 14.7 % (11.5-14.5) Platelet Count 267 x10^3/uL (140-400) 324 x10^3/uL (140-400) Neutrophils (%) (Auto) 60 % (31-73) Lymphocytes (%) (Auto) 27 % (24-48) Monocytes (%) (Auto) 9 % (0-9) Eosinophils (%) (Auto) 4 % (0-3) Basophils (%) (Auto) 1 % (0-3) Neutrophils # (Auto) 3.8 x10^3uL (1.8-7.7) Lymphocytes # (Auto) 1.7 x10^3/uL (1.0-4.8) Monocytes # (Auto) 0.6 x10^3/uL (0.0-1.1) Eosinophils # (Auto) 0.2 x10^3/uL (0.0-0.7) Basophils # (Auto) 0.0 x10^3/uL (0.0-0.2) Sodium Level 144 mmol/L (136-145) Potassium Level 3.1 mmol/L (3.5-5.1) Chloride Level 109 mmol/L (98-107) Carbon Dioxide Level 26 mmol/L (21-32) Anion Gap 9 (6-14) Blood Urea Nitrogen 6 mg/dL (7-20) Creatinine 0.5 mg/dL (0.6-1.0) Estimated GFR (Cockcroft-Gault) 122.3 Glucose Level 94 mg/dL (70-99) Calcium Level 8.0 mg/dL (8.5-10.1) MO REED MD May 24, 2017 20:43
[2017-05-25] VITALS (24 sets, daily range): BP systolic 86–127; BP diastolic 48–74
[2017-05-25] MEDS: IV NORMAL SALINE 1000ML BAG 1,000 ML IV SCH ×2 (04:41→20:00)
[2017-05-25] MEDS: LEVOTHYROXINE 88 MCG TABLET PO SCH ×2 (07:30→20:26)
[2017-05-25] MEDS: PANTOPRAZOLE 40 MG TABLET.DR. PO SCH (07:30)
[2017-05-25 07:32] LABS: BASO % 1 % (0-3); EOS % 3 % (0-3); HEMOGLOBIN 7.1 g/dL (12.0-15.5); LYMPH # 1.6 x10^3/uL (1.0-4.8); LYMPH % 24 % (24-48); MEAN CORPUSCULAR HEMOGLOBIN 33 pg (25-35); MEAN CORPUSCULAR HGB CONC 34 g/dL (31-37); MEAN CORPUSCULAR VOLUME 95 fL (79-100); MONO % 9 % (0-9); NEUT % 64 % (31-73); PLATELET COUNT 336 x10^3/uL (140-400); RED BLOOD COUNT 2.16 x10^6/uL (3.50-5.40); RED CELL DISTRIBUTION WIDTH 14.8 % (11.5-14.5); WHITE BLOOD COUNT 6.6 x10^3/uL (4.0-11.0)
[2017-05-25 07:41] LABS: HEMATOCRIT 20.5 % (36.0-47.0)
[2017-05-25 07:42] LABS: CALCIUM 7.2 mg/dL (8.5-10.1); CREATININE 0.7 mg/dL (0.6-1.0); POTASSIUM 3.1 mmol/L (3.5-5.1)
[2017-05-25] MEDS: DULoxetine HCL 30 MG CAPSULE.DR PO SCH (09:00)
--- NOTE | 2017-05-25 11:20 | PDOC ---
Subjective: Subjective: Bleeding resumed yesterday afternoon, waiting on bleeding scan. Objective: Objective: Seen earlier this morning. RN called yesterday afternoon, bleeding resumed then and has continued. Estimates 300-400cc bright red blood every 8 hours. Bleeding scan ordered yesterday afternoon, to be performed at 11:00 a.m. today. Was also made NPO again yesterday afternoon. Vital Signs: Vital Signs Date Time Temp Pulse Resp B/P (MAP) Pulse Ox O2 Delivery O2 Flow Rate FiO2 05/25/17 06:00 106 18 92/48 (63) 94 Room Air 05/25/17 04:00 99.2 99.2 Labs: Laboratory Tests Test 05/24/17 15:10 05/25/17 06:24 White Blood Count 8.7 x10^3/uL 6.6 x10^3/uL Red Blood Count 2.46 x10^6/uL 2.16 x10^6/uL Hemoglobin 8.1 g/dL 7.1 g/dL Hematocrit 23.0 % 20.5 % Mean Corpuscular Volume 94 fL 95 fL Mean Corpuscular Hemoglobin 33 pg 33 pg Mean Corpuscular Hemoglobin Concent 35 g/dL 34 g/dL Red Cell Distribution Width 14.7 % 14.8 % Platelet Count 324 x10^3/uL 336 x10^3/uL Neutrophils (%) (Auto) 64 % Lymphocytes (%) (Auto) 24 % Monocytes (%) (Auto) 9 % Eosinophils (%) (Auto) 3 % Basophils (%) (Auto) 1 % Neutrophils # (Auto) 4.2 x10^3uL Lymphocytes # (Auto) 1.6 x10^3/uL Monocytes # (Auto) 0.6 x10^3/uL Eosinophils # (Auto) 0.2 x10^3/uL Basophils # (Auto) 0.0 x10^3/uL Sodium Level 144 mmol/L Potassium Level 3.1 mmol/L Chloride Level 110 mmol/L Carbon Dioxide Level 27 mmol/L Anion Gap 7 Blood Urea Nitrogen 11 mg/dL Creatinine 0.7 mg/dL Estimated GFR (Cockcroft-Gault) 83.0 Glucose Level 109 mg/dL Calcium Level 7.2 mg/dL PE: GEN: NAD, up to chair LUNGS: clear HEART: tachycardic ABD: obese, non-tender NEURO/PSYCH: A & O 3 A/P: Hematochezia -last colonoscopy 2016 -possibly recurrent diverticular bleed Anemia -Hgb dropped to 7.1 when bleeding resume, BUN WNL -- Await bleeding scan, transfuse another unit pRBCs. DANYA FAJARDO May 25, 2017 11:20
--- NOTE | 2017-05-25 14:04 | RAD ---
Radionuclide GI bleeding scan, 05/25/2017: History: Red bloody stools The study was performed utilizing 25 mCi of technetium 99m and a labeled red blood cell technique. Imaging of the abdomen and pelvis out to one hour shows no abnormal accumulation of activity to suggest active GI tract bleeding. IMPRESSION: Negative radionuclide GI bleeding scan.
[2017-05-25] MEDS: FAMOTIDINE 20 MG/2 ML VIAL IVP SCH ×2 (15:09→21:00)
[2017-05-25] MEDS: IV RINGERS,LACTATED 1000ML 1,000 ML IV SCH (16:06)
[2017-05-25] MEDS ORDERED: PROPOFOL 20 ML IV ONE (16:51)
[2017-05-25] MEDS ORDERED: LIDOCAINE 2% PF Vial for OR 5 ML VIAL. ONE (16:51)
--- NOTE | 2017-05-25 17:01 | PDOC4 ---
Operative Note Operative Note EGD Meds propofol per anesthesia Pre-op dx acute blood loss anemia/melena Post-op dx non-erosive gastritis Plan serial cbcs colonoscopy after prep tomorrow MICHEAL GODDARD MD May 25, 2017 17:01
[2017-05-25] MEDS ORDERED: POLYETHYLENE GLYCOL 3350 238 GM POWDER PO ONE (17:30)
--- NOTE | 2017-05-25 17:30 | PDOC ---
GENERAL General: vss with lower blood pressures and mild tachycardia. rebleed with bright red blood per rectum since last pm. Hb down to 7.1 this am and further blood to be given with repeat cbc at end of same. chest clear and heart regular. abdomen benign. nuclear medicine bleeding scan for today. GI help appreciated. Problems: VITAL SIGNS Vital Signs: Vital Signs Date Time Temp Pulse Resp B/P (MAP) Pulse Ox O2 Delivery O2 Flow Rate FiO2 05/25/17 17:12 109 20 104/58 99 Nasal Cannula 2 05/25/17 17:00 98.0 98.0 ALLERGIES Allergies: Allergies Coded Allergies Type Severity Reaction Last Updated Verified latex Allergy Intermediate 05/25/17 Yes MEDS Medications: Current Medications Medications (Trade) Dose Ordered Sig/Tatiana Start Time Stop Time Status Last Admin Dose Admin Acetaminophen (Tylenol) 650 mg PRN Q4HRS PRN 05/23/17 08:45 05/23/17 10:42 650 MG Atorvastatin Calcium (Lipitor) 80 mg QHS 05/23/17 21:00 05/24/17 20:40 80 MG Duloxetine HCl (Cymbalta) 120 mg DAILY 05/23/17 13:30 05/24/17 08:11 120 MG Famotidine (Pepcid) 20 mg BID 05/25/17 11:00 05/25/17 15:09 20 MG Levothyroxine Sodium (Synthroid) 88 mcg DAILYAC 05/23/17 13:30 05/24/17 08:11 88 MCG Lidocaine HCl (Lidocaine Pf 2% Vial) 5 ml STK-MED ONCE 05/25/17 16:51 05/25/17 16:52 DC Morphine Sulfate 2 mg PRN Q2HR PRN 05/21/17 16:45 05/22/17 16:44 DC Ondansetron HCl (Zofran) 4 mg PRN Q8HRS PRN 05/21/17 16:45 05/22/17 16:44 DC Pantoprazole Sodium (Protonix) 40 mg DAILYAC 05/22/17 12:00 05/25/17 11:20 DC 05/24/17 08:11 40 MG Polyethylene Glycol (miraLAX Powder BULK BOTTLE) 238 gm 1X ONCE 05/25/17 17:30 05/25/17 17:31 Potassium Chloride 100 ml @ 100 mls/hr Q1H 05/24/17 19:30 05/24/17 23:29 DC 05/24/17 22:30 100 MLS/HR Propofol 20 ml @ As Directed STK-MED ONCE 05/25/17 16:51 05/25/17 16:52 DC Ringer's Solution 1,000 ml @ 100 mls/hr Q10H 05/25/17 16:15 05/25/17 16:06 100 MLS/HR Sodium Chloride 1,000 ml @ 100 mls/hr Q10H 05/22/17 22:00 05/25/17 04:41 100 MLS/HR LAB Lab: Laboratory Tests Test 05/25/17 06:24 White Blood Count 6.6 x10^3/uL (4.0-11.0) Red Blood Count 2.16 x10^6/uL (3.50-5.40) Hemoglobin 7.1 g/dL (12.0-15.5) Hematocrit 20.5 % (36.0-47.0) Mean Corpuscular Volume 95 fL (79-100) Mean Corpuscular Hemoglobin 33 pg (25-35) Mean Corpuscular Hemoglobin Concent 34 g/dL (31-37) Red Cell Distribution Width 14.8 % (11.5-14.5) Platelet Count 336 x10^3/uL (140-400) Neutrophils (%) (Auto) 64 % (31-73) Lymphocytes (%) (Auto) 24 % (24-48) Monocytes (%) (Auto) 9 % (0-9) Eosinophils (%) (Auto) 3 % (0-3) Basophils (%) (Auto) 1 % (0-3) Neutrophils # (Auto) 4.2 x10^3uL (1.8-7.7) Lymphocytes # (Auto) 1.6 x10^3/uL (1.0-4.8) Monocytes # (Auto) 0.6 x10^3/uL (0.0-1.1) Eosinophils # (Auto) 0.2 x10^3/uL (0.0-0.7) Basophils # (Auto) 0.0 x10^3/uL (0.0-0.2) Sodium Level 144 mmol/L (136-145) Potassium Level 3.1 mmol/L (3.5-5.1) Chloride Level 110 mmol/L (98-107) Carbon Dioxide Level 27 mmol/L (21-32) Anion Gap 7 (6-14) Blood Urea Nitrogen 11 mg/dL (7-20) Creatinine 0.7 mg/dL (0.6-1.0) Estimated GFR (Cockcroft-Gault) 83.0 Glucose Level 109 mg/dL (70-99) Calcium Level 7.2 mg/dL (8.5-10.1) MO REED MD May 25, 2017 17:30
[2017-05-25 18:04] LABS: BASO # 0.1 x10^3/uL (0.0-0.2); BASO % 1 % (0-3); EOS % 2 % (0-3); HEMATOCRIT 24.9 % (36.0-47.0); HEMOGLOBIN 8.5 g/dL (12.0-15.5); LYMPH # 2.1 x10^3/uL (1.0-4.8); LYMPH % 24 % (24-48); MEAN CORPUSCULAR HEMOGLOBIN 32 pg (25-35); MEAN CORPUSCULAR HGB CONC 34 g/dL (31-37); MEAN CORPUSCULAR VOLUME 95 fL (79-100); MONO % 8 % (0-9); NEUT % 66 % (31-73); PLATELET COUNT 351 x10^3/uL (140-400); RED BLOOD COUNT 2.62 x10^6/uL (3.50-5.40); RED CELL DISTRIBUTION WIDTH 15.2 % (11.5-14.5); WHITE BLOOD COUNT 8.8 x10^3/uL (4.0-11.0)
[2017-05-25] MEDS: ATORVASTATIN CALCIUM 40 MG TABLET. PO SCH (20:26)
[2017-05-26] VITALS (24 sets, daily range): BP systolic 86–146; BP diastolic 48–83
[2017-05-26] MEDS: IV RINGERS,LACTATED 1000ML 1,000 ML IV SCH ×3 (02:15→22:15)
[2017-05-26] MEDS: IV NORMAL SALINE 1000ML BAG 1,000 ML IV SCH ×2 (02:35→18:45)
[2017-05-26 06:38] LABS: BASO % 1 % (0-3); EOS % 3 % (0-3); HEMATOCRIT 21.1 % (36.0-47.0); HEMOGLOBIN 7.4 g/dL (12.0-15.5); LYMPH # 2.1 x10^3/uL (1.0-4.8); LYMPH % 28 % (24-48); MEAN CORPUSCULAR HEMOGLOBIN 32 pg (25-35); MEAN CORPUSCULAR HGB CONC 35 g/dL (31-37); MEAN CORPUSCULAR VOLUME 93 fL (79-100); MONO % 9 % (0-9); NEUT % 60 % (31-73); PLATELET COUNT 329 x10^3/uL (140-400); RED BLOOD COUNT 2.28 x10^6/uL (3.50-5.40); RED CELL DISTRIBUTION WIDTH 15.1 % (11.5-14.5); WHITE BLOOD COUNT 7.5 x10^3/uL (4.0-11.0)
[2017-05-26] MEDS: DULoxetine HCL 30 MG CAPSULE.DR PO SCH (09:00)
[2017-05-26] MEDS: FAMOTIDINE 20 MG/2 ML VIAL IVP SCH ×3 (10:00→20:53)
[2017-05-26] MEDS ORDERED: PROPOFOL 40 ML IV ONE (11:42)
[2017-05-26 12:06] LABS: % SAT IRON 10 % (15-34); IRON,SERUM 20 ug/dL (50-170)
[2017-05-26 12:30] LABS: FOLATE 18.26 ng/ml (3.2-20.0)
--- NOTE | 2017-05-26 12:42 | PDOC4 ---
Operative Note Operative Note Colonoscopy Meds propofol per anesthesia Pre-op dx acute blood loss anemia/hematochezia Post-op dx internal hemorrhoids diverticulosis sigmoid/descending colon limited visualization of cecum due to looping and retained blood' Plan serial cbcs CTA to further assess MICHEAL GODDARD MD May 26, 2017 12:42
[2017-05-26] MEDS: ACETAMINOPHEN 325 MG TABLET. PO PRN (14:59)
[2017-05-26] MEDS ORDERED: IOHEXOL 350 MG/ML 100 ML VIAL. IV ONE (15:15)
[2017-05-26] MEDS ORDERED: CONTRAST GIVEN MC PRN (15:15)
--- NOTE | 2017-05-26 16:59 | RAD ---
CTA of the abdomen and pelvis with and without contrast, 05/26/2017: History: GI tract bleeding Multidetector CT imaging was performed prior to and following an IV bolus injection of iodinated contrast material. Arterial and portal venous phase postcontrast images were obtained. There are colonic diverticula, most numerous in the descending and proximal sigmoid colon. No contrast extravasation is seen related to these diverticula or in other portions of the GI tract to suggest active GI tract bleeding. No paracolonic inflammatory process is seen. There is no evidence of bowel obstruction. 3-D MIP images of the major arteries were also produced. There are mild scattered aortoiliac calcific plaques. The celiac, superior mesenteric and renal artery origins are widely patent. A patent inferior mesenteric artery is seen. Coronary artery calcifications are noted. Incidental CT findings include the presence of a 2.3 cm cyst in the spleen. There are several small renal cysts with the largest of these measuring 1.7 cm and lying in the upper pole of the right kidney. There are mild scattered degenerative changes in the spine. IMPRESSION: 1. No CT evidence of active GI tract bleeding. 2. Moderate colonic diverticulosis. PQRS Compliance Statement: One or more of the following individualized dose reduction techniques were utilized for this examination: 1. Automated exposure control 2. Adjustment of the mA and/or kV according to patient size 3. Use of iterative reconstruction technique
--- NOTE | 2017-05-26 17:20 | PDOC ---
GENERAL General: vss and afebrile. awake and alert and when I saw without significant complaints. ready for colonoscopy. still with blood in stool throughout prep. Hb 8.5 after transfusion. continue supportive care Problems: VITAL SIGNS Vital Signs: Vital Signs Date Time Temp Pulse Resp B/P (MAP) Pulse Ox O2 Delivery O2 Flow Rate FiO2 05/26/17 13:00 98.4 104 20 123/60 97 Room Air 98.4 05/26/17 12:35 2 ALLERGIES Allergies: Allergies Coded Allergies Type Severity Reaction Last Updated Verified latex Allergy Intermediate 05/25/17 Yes MEDS Medications: Current Medications Medications (Trade) Dose Ordered Sig/Tatiana Start Time Stop Time Status Last Admin Dose Admin Acetaminophen (Tylenol) 650 mg PRN Q4HRS PRN 05/23/17 08:45 05/26/17 14:59 650 MG Atorvastatin Calcium (Lipitor) 80 mg QHS 05/23/17 21:00 05/24/17 20:40 80 MG Duloxetine HCl (Cymbalta) 120 mg DAILY 05/23/17 13:30 05/24/17 08:11 120 MG Famotidine (Pepcid) 20 mg BID 05/25/17 11:00 05/26/17 10:00 20 MG Info (Do NOT chart on this entry -- for MONITORING) 1 each PRN DAILY PRN 05/26/17 15:15 05/28/17 15:14 Iohexol (Omnipaque 350 Mg/ml) 90 ml 1X ONCE 05/26/17 15:15 05/26/17 15:16 DC Levothyroxine Sodium (Synthroid) 88 mcg DAILYAC 05/23/17 13:30 05/24/17 08:11 88 MCG Lidocaine HCl (Lidocaine Pf 2% Vial) 5 ml STK-MED ONCE 05/25/17 16:51 05/25/17 16:52 DC Morphine Sulfate 2 mg PRN Q2HR PRN 05/21/17 16:45 05/22/17 16:44 DC Ondansetron HCl (Zofran) 4 mg PRN Q8HRS PRN 05/21/17 16:45 05/22/17 16:44 DC Pantoprazole Sodium (Protonix) 40 mg DAILYAC 05/22/17 12:00 05/25/17 11:20 DC 05/24/17 08:11 40 MG Polyethylene Glycol (miraLAX Powder BULK BOTTLE) 238 gm 1X ONCE 05/25/17 17:30 05/25/17 17:31 DC 05/25/17 17:30 238 GM Potassium Chloride 100 ml @ 100 mls/hr Q1H 05/24/17 19:30 05/24/17 23:29 DC 05/24/17 22:30 100 MLS/HR Propofol 40 ml @ As Directed STK-MED ONCE 05/26/17 11:42 05/26/17 11:43 DC Ringer's Solution 1,000 ml @ 100 mls/hr Q10H 05/25/17 16:15 05/26/17 13:34 100 MLS/HR Sodium Chloride 1,000 ml @ 100 mls/hr Q10H 05/22/17 22:00 05/25/17 04:41 100 MLS/HR LAB Lab: Laboratory Tests Test 05/25/17 17:50 05/26/17 05:45 White Blood Count 8.8 x10^3/uL (4.0-11.0) 7.5 x10^3/uL (4.0-11.0) Red Blood Count 2.62 x10^6/uL (3.50-5.40) 2.28 x10^6/uL (3.50-5.40) Hemoglobin 8.5 g/dL (12.0-15.5) 7.4 g/dL (12.0-15.5) Hematocrit 24.9 % (36.0-47.0) 21.1 % (36.0-47.0) Mean Corpuscular Volume 95 fL (79-100) 93 fL (79-100) Mean Corpuscular Hemoglobin 32 pg (25-35) 32 pg (25-35) Mean Corpuscular Hemoglobin Concent 34 g/dL (31-37) 35 g/dL (31-37) Red Cell Distribution Width 15.2 % (11.5-14.5) 15.1 % (11.5-14.5) Platelet Count 351 x10^3/uL (140-400) 329 x10^3/uL (140-400) Neutrophils (%) (Auto) 66 % (31-73) 60 % (31-73) Lymphocytes (%) (Auto) 24 % (24-48) 28 % (24-48) Monocytes (%) (Auto) 8 % (0-9) 9 % (0-9) Eosinophils (%) (Auto) 2 % (0-3) 3 % (0-3) Basophils (%) (Auto) 1 % (0-3) 1 % (0-3) Neutrophils # (Auto) 5.8 x10^3uL (1.8-7.7) 4.5 x10^3uL (1.8-7.7) Lymphocytes # (Auto) 2.1 x10^3/uL (1.0-4.8) 2.1 x10^3/uL (1.0-4.8) Monocytes # (Auto) 0.7 x10^3/uL (0.0-1.1) 0.7 x10^3/uL (0.0-1.1) Eosinophils # (Auto) 0.1 x10^3/uL (0.0-0.7) 0.2 x10^3/uL (0.0-0.7) Basophils # (Auto) 0.1 x10^3/uL (0.0-0.2) 0.0 x10^3/uL (0.0-0.2) Iron Level 20 ug/dL (50-170) Total Iron Binding Capacity 205 ug/dL (250-450) Iron Saturation 10 % (15-34) Vitamin B12 Level 494 pg/mL (247-911) Serum Folate 18.26 ng/ml (3.2-20.0) MO REED MD May 26, 2017 17:20
--- NOTE | 2017-05-26 18:25 | PDOC2 ---
CONSULT Date of Consult Date of Consult DATE: 05/26/17 TIME: 16:20 Reason for Consult Reason for Consult: GI bleeding Referring Physician Referring Physician: Dr Velarde Identification/Chief Complaint Chief Complaint BRB per rectum Problems: Source Source: Chart review, Patient History of Present Illness Reason for Visit: Dania is an obese 67 yo female who has had two previous episodes of GI bleeding that stopped spontaneously and did not require transfusion. Yesterday she had "' massive' blood loss and was admitted for further evaluation. An EGD yesterday and colonoscopy today neither showed definite bleeding source. Tagged red cell bleeding scan was also negative. She is scheduled for a CTA this afternoon. We are asked to be available if need for surgical intervention arises. Past Medical History Past Medical History See H&P Past Surgical History Past Surgical History: Cholecystectomy, Hysterectomy Social History No ALCOHOL: none Current Problem List Problem List Problems Medical Problems: (1) GI bleed Status: Acute (2) Tachycardia Status: Acute Current Medications Current Medications Current Medications Sodium Chloride 1,000 ml @ 1,000 mls/hr 1X ONCE IV Last administered on 17:02; Start 05/21/17 at 16:00; Stop 05/21/17 at 16:59; Status DC Ondansetron HCl (Zofran) 4 mg PRN Q8HRS PRN IV NAUSEA/VOMITING; Start 05/21/17 at 16:45; Stop 05/22/17 at 16:44; Status DC Morphine Sulfate 2 mg PRN Q2HR PRN IV PAIN; Start 05/21/17 at 16:45; Stop 05/22 at 16:44; Status DC Sodium Chloride 1,000 ml @ 125 mls/hr Q8H IV Last administered on 05/22/17 09 :15; Start 05/21/17 at 16:36; Stop 05/22/17 at 16:35; Status DC Acetaminophen (Tylenol) 650 mg PRN Q4HRS PRN PO FEVER; Start 05/21/17 at 16:45 ; Stop 05/22/17 at 16:44; Status DC Pantoprazole Sodium (Protonix) 40 mg DAILYAC PO Last administered on 05/24/17 08:11; Start 05/22/17 at 12:00; Stop 05/25/17 at 11:20; Status DC Sodium Chloride 1,000 ml @ 100 mls/hr Q10H IV Last administered on 05/25/17 04:41; Start 05/22/17 at 22:00 Acetaminophen (Tylenol) 650 mg PRN Q4HRS PRN PO MILD PAIN / TEMP Last administered on 05/26/17 14:59; Start 05/23/17 at 08:45 Levothyroxine Sodium (Synthroid) 88 mcg DAILYAC PO Last administered on 08:11; Start 05/23/17 at 13:30 Atorvastatin Calcium (Lipitor) 80 mg QHS PO Last administered on 05/24/17 20: 40; Start 05/23/17 at 21:00 Duloxetine HCl (Cymbalta) 120 mg DAILY PO Last administered on 05/24/17 08:11 ; Start 05/23/17 at 13:30 Potassium Chloride 100 ml @ 100 mls/hr Q1H IV Last administered on 05/24/17 22:30; Start 05/24/17 at 19:30; Stop 05/24/17 at 23:29; Status DC Famotidine (Pepcid) 20 mg BID IVP Last administered on 05/26/17 10:00; Start 05/25/17 at 11:00 Ringer's Solution 1,000 ml @ 100 mls/hr Q10H IV Last administered on 13:34; Start 05/25/17 at 16:15 Propofol 20 ml @ As Directed STK-MED ONCE IV ; Start 05/25/17 at 16:51; Stop at 16:52; Status DC Lidocaine HCl (Lidocaine Pf 2% Vial) 5 ml STK-MED ONCE .ROUTE ; Start 05/25/17 at 16:51; Stop 05/25/17 at 16:52; Status DC Polyethylene Glycol (miraLAX Powder BULK BOTTLE) 238 gm 1X ONCE PO Last administered on 05/25/17 17:30; Start 05/25/17 at 17:30; Stop 05/25/17 at 17:31 ; Status DC Propofol 40 ml @ As Directed STK-MED ONCE IV ; Start 05/26/17 at 11:42; Stop at 11:43; Status DC Iohexol (Omnipaque 350 Mg/ml) 90 ml 1X ONCE IV ; Start 05/26/17 at 15:15; Stop 05/26/17 at 15:16; Status DC Info (Do NOT chart on this entry -- for MONITORING) 1 each PRN DAILY PRN MC SEE COMMENTS; Start 05/26/17 at 15:15; Stop 05/28/17 at 15:14 Active Scripts Active Reported Cymbalta (Duloxetine Hcl) 60 Mg Capsule.dr 120 Mg PO DAILY Trintellix (Vortioxetine) 10 Mg Tablet 10 Mg PO DAILY Crestor (Rosuvastatin Calcium) 20 Mg Tablet 20 Mg PO HS Synthroid (Levothyroxine Sodium) 88 Mcg Tablet 88 Mcg PO DAILYAC Ibuprofen 400 Mg Tablet 200 Mg PO PRN Q6HRS PRN Benadryl Allergy (Diphenhydramine Hcl) 12.5 Mg/5 Ml Liquid 12.5 Mg PO PRN DAILY PRN Allergies Allergies: Coded Allergies: latex (Verified Allergy, Intermediate, 05/25/17) ROS Review of System negative with exception of present complaints Physical Exam General: Alert, Oriented X3, Cooperative, No acute distress HEENT: Atraumatic, EOMI Lungs: Clear to auscultation Heart: Regular rate Abdomen: Soft, No tenderness, Other (obese, well healed right subcostal and Pfannenstiel scars) Extremities: No clubbing Skin: Other (warm, dry) Neuro: Normal speech Vitals VITALS Vital Signs Date Time Temp Pulse Resp B/P (MAP) Pulse Ox O2 Delivery O2 Flow Rate FiO2 05/26/17 13:00 98.4 104 20 123/60 97 Room Air 98.4 05/26/17 12:35 2 Labs Labs Laboratory Tests Test 05/25/17 06:24 05/25/17 17:50 05/26/17 05:45 White Blood Count 6.6 x10^3/uL (4.0-11.0) 8.8 x10^3/uL (4.0-11.0) 7.5 x10^3/uL (4.0-11.0) Red Blood Count 2.16 x10^6/uL (3.50-5.40) 2.62 x10^6/uL (3.50-5.40) 2.28 x10^6/uL (3.50-5.40) Hemoglobin 7.1 g/dL (12.0-15.5) 8.5 g/dL (12.0-15.5) 7.4 g/dL (12.0-15.5) Hematocrit 20.5 % (36.0-47.0) 24.9 % (36.0-47.0) 21.1 % (36.0-47.0) Mean Corpuscular Volume 95 fL (79-100) 95 fL (79-100) 93 fL (79-100) Mean Corpuscular Hemoglobin 33 pg (25-35) 32 pg (25-35) 32 pg (25-35) Mean Corpuscular Hemoglobin Concent 34 g/dL (31-37) 34 g/dL (31-37) 35 g/dL (31-37) Red Cell Distribution Width 14.8 % (11.5-14.5) 15.2 % (11.5-14.5) 15.1 % (11.5-14.5) Platelet Count 336 x10^3/uL (140-400) 351 x10^3/uL (140-400) 329 x10^3/uL (140-400) Neutrophils (%) (Auto) 64 % (31-73) 66 % (31-73) 60 % (31-73) Lymphocytes (%) (Auto) 24 % (24-48) 24 % (24-48) 28 % (24-48) Monocytes (%) (Auto) 9 % (0-9) 8 % (0-9) 9 % (0-9) Eosinophils (%) (Auto) 3 % (0-3) 2 % (0-3) 3 % (0-3) Basophils (%) (Auto) 1 % (0-3) 1 % (0-3) 1 % (0-3) Neutrophils # (Auto) 4.2 x10^3uL (1.8-7.7) 5.8 x10^3uL (1.8-7.7) 4.5 x10^3uL (1.8-7.7) Lymphocytes # (Auto) 1.6 x10^3/uL (1.0-4.8) 2.1 x10^3/uL (1.0-4.8) 2.1 x10^3/uL (1.0-4.8) Monocytes # (Auto) 0.6 x10^3/uL (0.0-1.1) 0.7 x10^3/uL (0.0-1.1) 0.7 x10^3/uL (0.0-1.1) Eosinophils # (Auto) 0.2 x10^3/uL (0.0-0.7) 0.1 x10^3/uL (0.0-0.7) 0.2 x10^3/uL (0.0-0.7) Basophils # (Auto) 0.0 x10^3/uL (0.0-0.2) 0.1 x10^3/uL (0.0-0.2) 0.0 x10^3/uL (0.0-0.2) Sodium Level 144 mmol/L (136-145) Potassium Level 3.1 mmol/L (3.5-5.1) Chloride Level 110 mmol/L (98-107) Carbon Dioxide Level 27 mmol/L (21-32) Anion Gap 7 (6-14) Blood Urea Nitrogen 11 mg/dL (7-20) Creatinine 0.7 mg/dL (0.6-1.0) Estimated GFR (Cockcroft-Gault) 83.0 Glucose Level 109 mg/dL (70-99) Calcium Level 7.2 mg/dL (8.5-10.1) Iron Level 20 ug/dL (50-170) Total Iron Binding Capacity 205 ug/dL (250-450) Iron Saturation 10 % (15-34) Vitamin B12 Level 494 pg/mL (247-911) Serum Folate 18.26 ng/ml (3.2-20.0) Laboratory Tests Test 05/26/17 05:45 White Blood Count 7.5 x10^3/uL (4.0-11.0) Red Blood Count 2.28 x10^6/uL (3.50-5.40) Hemoglobin 7.4 g/dL (12.0-15.5) Hematocrit 21.1 % (36.0-47.0) Mean Corpuscular Volume 93 fL (79-100) Mean Corpuscular Hemoglobin 32 pg (25-35) Mean Corpuscular Hemoglobin Concent 35 g/dL (31-37) Red Cell Distribution Width 15.1 % (11.5-14.5) Platelet Count 329 x10^3/uL (140-400) Neutrophils (%) (Auto) 60 % (31-73) Lymphocytes (%) (Auto) 28 % (24-48) Monocytes (%) (Auto) 9 % (0-9) Eosinophils (%) (Auto) 3 % (0-3) Basophils (%) (Auto) 1 % (0-3) Neutrophils # (Auto) 4.5 x10^3uL (1.8-7.7) Lymphocytes # (Auto) 2.1 x10^3/uL (1.0-4.8) Monocytes # (Auto) 0.7 x10^3/uL (0.0-1.1) Eosinophils # (Auto) 0.2 x10^3/uL (0.0-0.7) Basophils # (Auto) 0.0 x10^3/uL (0.0-0.2) Iron Level 20 ug/dL (50-170) Total Iron Binding Capacity 205 ug/dL (250-450) Iron Saturation 10 % (15-34) Vitamin B12 Level 494 pg/mL (247-911) Serum Folate 18.26 ng/ml (3.2-20.0) Images Images Bleeding scan reviewed Assessment/Plan Assessment/Plan GI bleed of uncertain source diverticulosis obesity To have a CTA today. Await those results. Serial exams, labs. Will follow with you. Thanks for consult HARMAN MOHR MD May 26, 2017 18:25
[2017-05-26] MEDS: ATORVASTATIN CALCIUM 40 MG TABLET. PO SCH (20:43)
[2017-05-27] VITALS (22 sets, daily range): BP systolic 94–153; BP diastolic 46–78
[2017-05-27 00:48] LABS: RED BLOOD COUNT 2.1 x10^6/uL (3.50-5.40); RED CELL DISTRIBUTION WIDTH 15.8 % (11.5-14.5); WHITE BLOOD COUNT 7.8 x10^3/uL (4.0-11.0)
[2017-05-27 00:50] LABS: HEMOGLOBIN 6.7 g/dL (12.0-15.5)
[2017-05-27] MEDS: LEVOTHYROXINE 88 MCG TABLET PO SCH ×2 (01:30→06:25)
[2017-05-27] MEDS: IV NORMAL SALINE 1000ML BAG 1,000 ML IV SCH ×3 (01:30→20:09)
[2017-05-27 05:09] LABS: BASO % 1 % (0-3); EOS % 4 % (0-3); HEMATOCRIT 26.5 % (36.0-47.0); HEMOGLOBIN 8.9 g/dL (12.0-15.5); LYMPH # 2.1 x10^3/uL (1.0-4.8); LYMPH % 30 % (24-48); MEAN CORPUSCULAR HEMOGLOBIN 31 pg (25-35); MEAN CORPUSCULAR HGB CONC 34 g/dL (31-37); MEAN CORPUSCULAR VOLUME 91 fL (79-100); MONO % 9 % (0-9); NEUT % 57 % (31-73); PLATELET COUNT 275 x10^3/uL (140-400); RED BLOOD COUNT 2.89 x10^6/uL (3.50-5.40); RED CELL DISTRIBUTION WIDTH 16.6 % (11.5-14.5)
[2017-05-27 05:43] LABS: CALCIUM 7.4 mg/dL (8.5-10.1); CREATININE 0.6 mg/dL (0.6-1.0); GFR 99.1
[2017-05-27 05:46] LABS: POTASSIUM 2.7 mmol/L (3.5-5.1)
[2017-05-27] MEDS ORDERED: POTASSIUM CHLORIDE 20 MEQ/15 ML ORAL LIQUID. PO ONE (06:30)
[2017-05-27] MEDS ORDERED: POTASSIUM CHLORIDE 20 MEQ TABLET.ER. PO ONE (09:30)
[2017-05-27] MEDS: DULoxetine HCL 30 MG CAPSULE.DR PO SCH (09:55)
[2017-05-27] MEDS: FAMOTIDINE 20 MG/2 ML VIAL IVP SCH ×2 (09:55→21:49)
--- NOTE | 2017-05-27 10:10 | PDOC ---
TEDDY HAWLEY [employer] 05/27/17 1010: SURGICAL PROGRESS NOTE Subjective taking clears no abd pain no further bleeding Vital Signs Vital Signs Date Time Temp Pulse Resp B/P (MAP) Pulse Ox O2 Delivery O2 Flow Rate FiO2 05/27/17 08:00 98.2 90 13 119/69 (86) 99 Nasal Cannula 2.0 98.2 General: Alert, Oriented X3, Cooperative, No acute distress Abdomen: Soft, No tenderness Labs Laboratory Tests Test 05/25/17 17:50 05/26/17 05:45 05/27/17 00:40 05/27/17 04:55 White Blood Count 8.8 x10^3/uL (4.0-11.0) 7.5 x10^3/uL (4.0-11.0) 7.8 x10^3/uL (4.0-11.0) 7.0 x10^3/uL (4.0-11.0) Red Blood Count 2.62 x10^6/uL (3.50-5.40) 2.28 x10^6/uL (3.50-5.40) 2.10 x10^6/uL (3.50-5.40) 2.89 x10^6/uL (3.50-5.40) Hemoglobin 8.5 g/dL (12.0-15.5) 7.4 g/dL (12.0-15.5) 6.7 g/dL (12.0-15.5) 8.9 g/dL (12.0-15.5) Hematocrit 24.9 % (36.0-47.0) 21.1 % (36.0-47.0) 20.0 % (36.0-47.0) 26.5 % (36.0-47.0) Mean Corpuscular Volume 95 fL (79-100) 93 fL (79-100) 95 fL (79-100) 91 fL ( 79-100) Mean Corpuscular Hemoglobin 32 pg (25-35) 32 pg (25-35) 32 pg (25-35) 31 pg ( 25-35) Mean Corpuscular Hemoglobin Concent 34 g/dL (31-37) 35 g/dL (31-37) 34 g/dL (31-37) 34 g/dL (31-37) Red Cell Distribution Width 15.2 % (11.5-14.5) 15.1 % (11.5-14.5) 15.8 % (11.5-14.5) 16.6 % (11.5-14.5) Platelet Count 351 x10^3/uL (140-400) 329 x10^3/uL (140-400) 316 x10^3/uL (140-400) 275 x10^3/uL (140-400) Neutrophils (%) (Auto) 66 % (31-73) 60 % (31-73) 57 % (31-73) Lymphocytes (%) (Auto) 24 % (24-48) 28 % (24-48) 30 % (24-48) Monocytes (%) (Auto) 8 % (0-9) 9 % (0-9) 9 % (0-9) Eosinophils (%) (Auto) 2 % (0-3) 3 % (0-3) 4 % (0-3) Basophils (%) (Auto) 1 % (0-3) 1 % (0-3) 1 % (0-3) Neutrophils # (Auto) 5.8 x10^3uL (1.8-7.7) 4.5 x10^3uL (1.8-7.7) 4.0 x10^3uL (1.8-7.7) Lymphocytes # (Auto) 2.1 x10^3/uL (1.0-4.8) 2.1 x10^3/uL (1.0-4.8) 2.1 x10^3/uL (1.0-4.8) Monocytes # (Auto) 0.7 x10^3/uL (0.0-1.1) 0.7 x10^3/uL (0.0-1.1) 0.6 x10^3/uL (0.0-1.1) Eosinophils # (Auto) 0.1 x10^3/uL (0.0-0.7) 0.2 x10^3/uL (0.0-0.7) 0.3 x10^3/uL (0.0-0.7) Basophils # (Auto) 0.1 x10^3/uL (0.0-0.2) 0.0 x10^3/uL (0.0-0.2) 0.0 x10^3/uL (0.0-0.2) Iron Level 20 ug/dL (50-170) Total Iron Binding Capacity 205 ug/dL (250-450) Iron Saturation 10 % (15-34) Vitamin B12 Level 494 pg/mL (247-911) Serum Folate 18.26 ng/ml (3.2-20.0) Reticulocyte Count (auto) 5.5 % (0.5-2.5) Sodium Level 144 mmol/L (136-145) Potassium Level 2.7 mmol/L (3.5-5.1) Chloride Level 109 mmol/L (98-107) Carbon Dioxide Level 27 mmol/L (21-32) Anion Gap 8 (6-14) Blood Urea Nitrogen 5 mg/dL (7-20) Creatinine 0.6 mg/dL (0.6-1.0) Estimated GFR (Cockcroft-Gault) 99.1 Glucose Level 98 mg/dL (70-99) Calcium Level 7.4 mg/dL (8.5-10.1) Test 05/27/17 08:00 Potassium Level 3.4 mmol/L (3.5-5.1) Laboratory Tests Test 05/27/17 00:40 05/27/17 04:55 05/27/17 08:00 White Blood Count 7.8 x10^3/uL (4.0-11.0) 7.0 x10^3/uL (4.0-11.0) Red Blood Count 2.10 x10^6/uL (3.50-5.40) 2.89 x10^6/uL (3.50-5.40) Hemoglobin 6.7 g/dL (12.0-15.5) 8.9 g/dL (12.0-15.5) Hematocrit 20.0 % (36.0-47.0) 26.5 % (36.0-47.0) Mean Corpuscular Volume 95 fL (79-100) 91 fL (79-100) Mean Corpuscular Hemoglobin 32 pg (25-35) 31 pg (25-35) Mean Corpuscular Hemoglobin Concent 34 g/dL (31-37) 34 g/dL (31-37) Red Cell Distribution Width 15.8 % (11.5-14.5) 16.6 % (11.5-14.5) Platelet Count 316 x10^3/uL (140-400) 275 x10^3/uL (140-400) Neutrophils (%) (Auto) 57 % (31-73) Lymphocytes (%) (Auto) 30 % (24-48) Monocytes (%) (Auto) 9 % (0-9) Eosinophils (%) (Auto) 4 % (0-3) Basophils (%) (Auto) 1 % (0-3) Neutrophils # (Auto) 4.0 x10^3uL (1.8-7.7) Lymphocytes # (Auto) 2.1 x10^3/uL (1.0-4.8) Monocytes # (Auto) 0.6 x10^3/uL (0.0-1.1) Eosinophils # (Auto) 0.3 x10^3/uL (0.0-0.7) Basophils # (Auto) 0.0 x10^3/uL (0.0-0.2) Reticulocyte Count (auto) 5.5 % (0.5-2.5) Sodium Level 144 mmol/L (136-145) Potassium Level 2.7 mmol/L (3.5-5.1) 3.4 mmol/L (3.5-5.1) Chloride Level 109 mmol/L (98-107) Carbon Dioxide Level 27 mmol/L (21-32) Anion Gap 8 (6-14) Blood Urea Nitrogen 5 mg/dL (7-20) Creatinine 0.6 mg/dL (0.6-1.0) Estimated GFR (Cockcroft-Gault) 99.1 Glucose Level 98 mg/dL (70-99) Calcium Level 7.4 mg/dL (8.5-10.1) Problem List Problems Medical Problems: (1) GI bleed Status: Acute (2) Tachycardia Status: Acute Assessment/Plan watch Hgb CTA negative Problems: HARMAN MOHR MD 05/27/17 1115: SURGICAL PROGRESS NOTE Assessment/Plan pt seen, interviewed and examined agree with above no surgical recs Problems: TEDDY HAWLEY APRN May 27, 2017 10:10 HARMAN MOHR MD May 27, 2017 11:15
--- NOTE | 2017-05-27 12:51 | PDOC ---
Subjective: Subjective: Feeling well, no bleeding, would like to eat more. Objective: Objective: D/w RN and reviewed chart - two brown stools today w/o blood. Vital Signs: Vital Signs Date Time Temp Pulse Resp B/P (MAP) Pulse Ox O2 Delivery O2 Flow Rate FiO2 05/27/17 11:00 101 19 146/78 (100) 95 Room Air 05/27/17 09:00 2.0 05/27/17 08:00 98.2 98.2 Labs: Laboratory Tests Test 05/27/17 00:40 05/27/17 04:55 05/27/17 08:00 White Blood Count 7.8 x10^3/uL 7.0 x10^3/uL Red Blood Count 2.10 x10^6/uL 2.89 x10^6/uL Hemoglobin 6.7 g/dL 8.9 g/dL Hematocrit 20.0 % 26.5 % Mean Corpuscular Volume 95 fL 91 fL Mean Corpuscular Hemoglobin 32 pg 31 pg Mean Corpuscular Hemoglobin Concent 34 g/dL 34 g/dL Red Cell Distribution Width 15.8 % 16.6 % Platelet Count 316 x10^3/uL 275 x10^3/uL Neutrophils (%) (Auto) 57 % Lymphocytes (%) (Auto) 30 % Monocytes (%) (Auto) 9 % Eosinophils (%) (Auto) 4 % Basophils (%) (Auto) 1 % Neutrophils # (Auto) 4.0 x10^3uL Lymphocytes # (Auto) 2.1 x10^3/uL Monocytes # (Auto) 0.6 x10^3/uL Eosinophils # (Auto) 0.3 x10^3/uL Basophils # (Auto) 0.0 x10^3/uL Reticulocyte Count (auto) 5.5 % Haptoglobin 133 mg/dL Sodium Level 144 mmol/L Potassium Level 2.7 mmol/L 3.4 mmol/L Chloride Level 109 mmol/L Carbon Dioxide Level 27 mmol/L Anion Gap 8 Blood Urea Nitrogen 5 mg/dL Creatinine 0.6 mg/dL Estimated GFR (Cockcroft-Gault) 99.1 Glucose Level 98 mg/dL Calcium Level 7.4 mg/dL Imaging: CT angio A/P 05/[address] evidence of active GI tract bleeding. 2. Moderate colonic diverticulosis. Colonoscopy 05/26 internal hemorrhoids diverticulosis sigmoid/descending colon limited visualization of cecum due to looping and retained blood EGD 05/25 non-erosive gastritis GI Bleed Scan 05/24 IMPRESSION: Negative radionuclide GI bleeding scan. PE: GEN: NAD LUNGS: clear HEART: tachycardia ABD: obese, soft, non-tender NEURO/PSYCH: A & O 3 A/P: Hematochezia, anemia -no further bleeding -imaging as above -Hgb improved w/ transfusions (4 units pRBCs total) -still tachycardic -- ADAT. Meckel's scan next step if rebleeds. DANYA FAJARDO May 27, 2017 12:51
[2017-05-27] MEDS: ATORVASTATIN CALCIUM 40 MG TABLET. PO SCH (21:49)
--- NOTE | 2017-05-27 22:07 | PDOC ---
GENERAL General: vss and afebrile. Hb up to 8.9 after transfusion and no further bloody stools overnight. colonoscopy noted. chest clear and heart regular and abdomen benign. cta abdomen negative for bleed. follow H/H and consider dc when Hb stable for couple of days with rebleed since admission. Problems: VITAL SIGNS Vital Signs: Vital Signs Date Time Temp Pulse Resp B/P (MAP) Pulse Ox O2 Delivery O2 Flow Rate FiO2 05/27/17 19:00 98.1 108 18 135/70 (91) 95 Room Air 98.1 05/27/17 09:00 2.0 I & O I & O Intake and Output 05/28/17 07:00 Intake Total 1000 ml Output Total 725 ml Balance 275 ml Intake Oral 1000 ml Output Urine Total 725 ml # Bowel Movements 1 ALLERGIES Allergies: Allergies Coded Allergies Type Severity Reaction Last Updated Verified latex Allergy Intermediate 05/25/17 Yes MEDS Medications: Current Medications Medications (Trade) Dose Ordered Sig/Tatiana Start Time Stop Time Status Last Admin Dose Admin Acetaminophen (Tylenol) 650 mg PRN Q4HRS PRN 05/23/17 08:45 05/26/17 14:59 650 MG Atorvastatin Calcium (Lipitor) 80 mg QHS 05/23/17 21:00 05/27/17 21:49 80 MG Duloxetine HCl (Cymbalta) 120 mg DAILY 05/23/17 13:30 05/27/17 09:55 120 MG Famotidine (Pepcid) 20 mg BID 05/25/17 11:00 05/27/17 21:49 20 MG Info (Do NOT chart on this entry -- for MONITORING) 1 each PRN DAILY PRN 05/26/17 15:15 05/28/17 15:14 Iohexol (Omnipaque 350 Mg/ml) 90 ml 1X ONCE 05/26/17 15:15 05/26/17 15:16 DC Levothyroxine Sodium (Synthroid) 88 mcg DAILYAC 05/23/17 13:30 05/27/17 06:25 88 MCG Lidocaine HCl (Lidocaine Pf 2% Vial) 5 ml STK-MED ONCE 05/25/17 16:51 05/25/17 16:52 DC Morphine Sulfate 2 mg PRN Q2HR PRN 05/21/17 16:45 05/22/17 16:44 DC Ondansetron HCl (Zofran) 4 mg PRN Q8HRS PRN 05/21/17 16:45 05/22/17 16:44 DC Pantoprazole Sodium (Protonix) 40 mg DAILYAC 05/22/17 12:00 05/25/17 11:20 DC 05/24/17 08:11 40 MG Polyethylene Glycol (miraLAX Powder BULK BOTTLE) 238 gm 1X ONCE 05/25/17 17:30 05/25/17 17:31 DC 05/25/17 17:30 238 GM Potassium Chloride (KCl Oral Soln) 40 meq 1X ONCE 05/27/17 06:30 05/27/17 06:31 DC 05/27/17 06:25 40 MEQ Potassium Chloride (Klor-Con) 20 meq 1X ONCE 05/27/17 09:30 05/27/17 09:31 DC 05/27/17 09:55 20 MEQ Propofol 40 ml @ As Directed STK-MED ONCE 05/26/17 11:42 05/26/17 11:43 DC Ringer's Solution 1,000 ml @ 100 mls/hr Q10H 05/25/17 16:15 05/27/17 01:35 DC 05/26/17 13:34 100 MLS/HR Sodium Chloride 1,000 ml @ 100 mls/hr Q10H 05/22/17 22:00 05/27/17 20:09 100 MLS/HR LAB Lab: Laboratory Tests Test 05/27/17 00:40 05/27/17 04:55 05/27/17 08:00 White Blood Count 7.8 x10^3/uL (4.0-11.0) 7.0 x10^3/uL (4.0-11.0) Red Blood Count 2.10 x10^6/uL (3.50-5.40) 2.89 x10^6/uL (3.50-5.40) Hemoglobin 6.7 g/dL (12.0-15.5) 8.9 g/dL (12.0-15.5) Hematocrit 20.0 % (36.0-47.0) 26.5 % (36.0-47.0) Mean Corpuscular Volume 95 fL (79-100) 91 fL (79-100) Mean Corpuscular Hemoglobin 32 pg (25-35) 31 pg (25-35) Mean Corpuscular Hemoglobin Concent 34 g/dL (31-37) 34 g/dL (31-37) Red Cell Distribution Width 15.8 % (11.5-14.5) 16.6 % (11.5-14.5) Platelet Count 316 x10^3/uL (140-400) 275 x10^3/uL (140-400) Neutrophils (%) (Auto) 57 % (31-73) Lymphocytes (%) (Auto) 30 % (24-48) Monocytes (%) (Auto) 9 % (0-9) Eosinophils (%) (Auto) 4 % (0-3) Basophils (%) (Auto) 1 % (0-3) Neutrophils # (Auto) 4.0 x10^3uL (1.8-7.7) Lymphocytes # (Auto) 2.1 x10^3/uL (1.0-4.8) Monocytes # (Auto) 0.6 x10^3/uL (0.0-1.1) Eosinophils # (Auto) 0.3 x10^3/uL (0.0-0.7) Basophils # (Auto) 0.0 x10^3/uL (0.0-0.2) Reticulocyte Count (auto) 5.5 % (0.5-2.5) Haptoglobin 133 mg/dL (34-200) Sodium Level 144 mmol/L (136-145) Potassium Level 2.7 mmol/L (3.5-5.1) 3.4 mmol/L (3.5-5.1) Chloride Level 109 mmol/L (98-107) Carbon Dioxide Level 27 mmol/L (21-32) Anion Gap 8 (6-14) Blood Urea Nitrogen 5 mg/dL (7-20) Creatinine 0.6 mg/dL (0.6-1.0) Estimated GFR (Cockcroft-Gault) 99.1 Glucose Level 98 mg/dL (70-99) Calcium Level 7.4 mg/dL (8.5-10.1) MO REED MD May 27, 2017 22:07
[2017-05-28 03:00] VITALS: BP 131/67
[2017-05-28 05:33] LABS: BASO % 1 % (0-3); EOS % 4 % (0-3); HEMATOCRIT 25.9 % (36.0-47.0); HEMOGLOBIN 8.8 g/dL (12.0-15.5); LYMPH # 1.6 x10^3/uL (1.0-4.8); LYMPH % 31 % (24-48); MEAN CORPUSCULAR HEMOGLOBIN 31 pg (25-35); MEAN CORPUSCULAR HGB CONC 34 g/dL (31-37); MEAN CORPUSCULAR VOLUME 91 fL (79-100); MONO % 9 % (0-9); NEUT % 55 % (31-73); PLATELET COUNT 315 x10^3/uL (140-400); RED BLOOD COUNT 2.83 x10^6/uL (3.50-5.40); RED CELL DISTRIBUTION WIDTH 16.9 % (11.5-14.5); WHITE BLOOD COUNT 5.3 x10^3/uL (4.0-11.0)
[2017-05-28] MEDS: IV NORMAL SALINE 1000ML BAG 1,000 ML IV SCH (05:38)
[2017-05-28] MEDS: LEVOTHYROXINE 88 MCG TABLET PO SCH (05:40)
[2017-05-28] MEDS ORDERED: LEVO88TA4 PO (05:45)
[2017-05-28 07:00] VITALS: BP 147/71
--- NOTE | 2017-05-28 07:59 | PDOC ---
GENERAL General: vss and afebrile. awake and alert and no further bleeding. Hb stable at 8.8 this am. tolerating diet. abdomen benign. dc timing per GI with rebleed during this hospitalization. Problems: VITAL SIGNS Vital Signs: Vital Signs Date Time Temp Pulse Resp B/P (MAP) Pulse Ox O2 Delivery O2 Flow Rate FiO2 05/28/17 07:00 97.9 91 18 147/71 (96) 95 Room Air 97.9 05/27/17 20:00 2.0 ALLERGIES Allergies: Allergies Coded Allergies Type Severity Reaction Last Updated Verified latex Allergy Intermediate 05/25/17 Yes MEDS Medications: Current Medications Medications (Trade) Dose Ordered Sig/Tatiana Start Time Stop Time Status Last Admin Dose Admin Acetaminophen (Tylenol) 650 mg PRN Q4HRS PRN 05/23/17 08:45 05/26/17 14:59 650 MG Atorvastatin Calcium (Lipitor) 80 mg QHS 05/23/17 21:00 05/27/17 21:49 80 MG Duloxetine HCl (Cymbalta) 120 mg DAILY 05/23/17 13:30 05/27/17 09:55 120 MG Famotidine (Pepcid) 20 mg BID 05/25/17 11:00 05/27/17 21:49 20 MG Info (Do NOT chart on this entry -- for MONITORING) 1 each PRN DAILY PRN 05/26/17 15:15 05/28/17 15:14 Iohexol (Omnipaque 350 Mg/ml) 90 ml 1X ONCE 05/26/17 15:15 05/26/17 15:16 DC Levothyroxine Sodium (Synthroid) 88 mcg DAILYAC 05/23/17 13:30 05/28/17 05:40 88 MCG Lidocaine HCl (Lidocaine Pf 2% Vial) 5 ml STK-MED ONCE 05/25/17 16:51 05/25/17 16:52 DC Morphine Sulfate 2 mg PRN Q2HR PRN 05/21/17 16:45 05/22/17 16:44 DC Ondansetron HCl (Zofran) 4 mg PRN Q8HRS PRN 05/21/17 16:45 05/22/17 16:44 DC Pantoprazole Sodium (Protonix) 40 mg DAILYAC 05/22/17 12:00 05/25/17 11:20 DC 05/24/17 08:11 40 MG Polyethylene Glycol (miraLAX Powder BULK BOTTLE) 238 gm 1X ONCE 05/25/17 17:30 05/25/17 17:31 DC 05/25/17 17:30 238 GM Potassium Chloride (KCl Oral Soln) 40 meq 1X ONCE 05/27/17 06:30 05/27/17 06:31 DC 05/27/17 06:25 40 MEQ Potassium Chloride (Klor-Con) 20 meq 1X ONCE 05/27/17 09:30 05/27/17 09:31 DC 05/27/17 09:55 20 MEQ Propofol 40 ml @ As Directed STK-MED ONCE 05/26/17 11:42 05/26/17 11:43 DC Ringer's Solution 1,000 ml @ 100 mls/hr Q10H 05/25/17 16:15 05/27/17 01:35 DC 05/26/17 13:34 100 MLS/HR Sodium Chloride 1,000 ml @ 100 mls/hr Q10H 05/22/17 22:00 05/28/17 05:38 100 MLS/HR LAB Lab: Laboratory Tests Test 05/27/17 08:00 05/28/17 04:44 Potassium Level 3.4 mmol/L (3.5-5.1) White Blood Count 5.3 x10^3/uL (4.0-11.0) Red Blood Count 2.83 x10^6/uL (3.50-5.40) Hemoglobin 8.8 g/dL (12.0-15.5) Hematocrit 25.9 % (36.0-47.0) Mean Corpuscular Volume 91 fL (79-100) Mean Corpuscular Hemoglobin 31 pg (25-35) Mean Corpuscular Hemoglobin Concent 34 g/dL (31-37) Red Cell Distribution Width 16.9 % (11.5-14.5) Platelet Count 315 x10^3/uL (140-400) Neutrophils (%) (Auto) 55 % (31-73) Lymphocytes (%) (Auto) 31 % (24-48) Monocytes (%) (Auto) 9 % (0-9) Eosinophils (%) (Auto) 4 % (0-3) Basophils (%) (Auto) 1 % (0-3) Neutrophils # (Auto) 2.9 x10^3uL (1.8-7.7) Lymphocytes # (Auto) 1.6 x10^3/uL (1.0-4.8) Monocytes # (Auto) 0.5 x10^3/uL (0.0-1.1) Eosinophils # (Auto) 0.2 x10^3/uL (0.0-0.7) Basophils # (Auto) 0.0 x10^3/uL (0.0-0.2) APPLMO MD May 28, 2017 07:59
[2017-05-28] MEDS: FAMOTIDINE 20 MG/2 ML VIAL IVP SCH (08:40)
[2017-05-28] MEDS: DULoxetine HCL 30 MG CAPSULE.DR PO SCH (08:41)
--- NOTE | 2017-05-28 09:07 | PDOC ---
TEDDY HAWLEY [employer] DEV[employer] PROGRAMMER 05/28/17 0907: SURGICAL PROGRESS NOTE Subjective tolerating diet no pain no blood very minimal stool Vital Signs Vital Signs Date Time Temp Pulse Resp B/P (MAP) Pulse Ox O2 Delivery O2 Flow Rate FiO2 05/28/17 07:00 97.9 91 18 147/71 (96) 95 Room Air 97.9 05/27/17 20:00 2.0 General: Alert, Oriented X3, Cooperative, No acute distress Abdomen: Normal bowel sounds, Soft, No tenderness, No hepatosplenomegaly, No masses Labs Laboratory Tests Test 05/27/17 00:40 05/27/17 04:55 05/27/17 08:00 05/28/17 04:44 White Blood Count 7.8 x10^3/uL (4.0-11.0) 7.0 x10^3/uL (4.0-11.0) 5.3 x10^3/uL (4.0-11.0) Red Blood Count 2.10 x10^6/uL (3.50-5.40) 2.89 x10^6/uL (3.50-5.40) 2.83 x10^6/uL (3.50-5.40) Hemoglobin 6.7 g/dL (12.0-15.5) 8.9 g/dL (12.0-15.5) 8.8 g/dL (12.0-15.5) Hematocrit 20.0 % (36.0-47.0) 26.5 % (36.0-47.0) 25.9 % (36.0-47.0) Mean Corpuscular Volume 95 fL (79-100) 91 fL (79-100) 91 fL (79-100) Mean Corpuscular Hemoglobin 32 pg (25-35) 31 pg (25-35) 31 pg (25-35) Mean Corpuscular Hemoglobin Concent 34 g/dL (31-37) 34 g/dL (31-37) 34 g/dL (31-37) Red Cell Distribution Width 15.8 % (11.5-14.5) 16.6 % (11.5-14.5) 16.9 % (11.5-14.5) Platelet Count 316 x10^3/uL (140-400) 275 x10^3/uL (140-400) 315 x10^3/uL (140-400) Neutrophils (%) (Auto) 57 % (31-73) 55 % (31-73) Lymphocytes (%) (Auto) 30 % (24-48) 31 % (24-48) Monocytes (%) (Auto) 9 % (0-9) 9 % (0-9) Eosinophils (%) (Auto) 4 % (0-3) 4 % (0-3) Basophils (%) (Auto) 1 % (0-3) 1 % (0-3) Neutrophils # (Auto) 4.0 x10^3uL (1.8-7.7) 2.9 x10^3uL (1.8-7.7) Lymphocytes # (Auto) 2.1 x10^3/uL (1.0-4.8) 1.6 x10^3/uL (1.0-4.8) Monocytes # (Auto) 0.6 x10^3/uL (0.0-1.1) 0.5 x10^3/uL (0.0-1.1) Eosinophils # (Auto) 0.3 x10^3/uL (0.0-0.7) 0.2 x10^3/uL (0.0-0.7) Basophils # (Auto) 0.0 x10^3/uL (0.0-0.2) 0.0 x10^3/uL (0.0-0.2) Reticulocyte Count (auto) 5.5 % (0.5-2.5) Haptoglobin 133 mg/dL (34-200) Sodium Level 144 mmol/L (136-145) Potassium Level 2.7 mmol/L (3.5-5.1) 3.4 mmol/L (3.5-5.1) Chloride Level 109 mmol/L (98-107) Carbon Dioxide Level 27 mmol/L (21-32) Anion Gap 8 (6-14) Blood Urea Nitrogen 5 mg/dL (7-20) Creatinine 0.6 mg/dL (0.6-1.0) Estimated GFR (Cockcroft-Gault) 99.1 Glucose Level 98 mg/dL (70-99) Calcium Level 7.4 mg/dL (8.5-10.1) Laboratory Tests Test 05/28/17 04:44 White Blood Count 5.3 x10^3/uL (4.0-11.0) Red Blood Count 2.83 x10^6/uL (3.50-5.40) Hemoglobin 8.8 g/dL (12.0-15.5) Hematocrit 25.9 % (36.0-47.0) Mean Corpuscular Volume 91 fL (79-100) Mean Corpuscular Hemoglobin 31 pg (25-35) Mean Corpuscular Hemoglobin Concent 34 g/dL (31-37) Red Cell Distribution Width 16.9 % (11.5-14.5) Platelet Count 315 x10^3/uL (140-400) Neutrophils (%) (Auto) 55 % (31-73) Lymphocytes (%) (Auto) 31 % (24-48) Monocytes (%) (Auto) 9 % (0-9) Eosinophils (%) (Auto) 4 % (0-3) Basophils (%) (Auto) 1 % (0-3) Neutrophils # (Auto) 2.9 x10^3uL (1.8-7.7) Lymphocytes # (Auto) 1.6 x10^3/uL (1.0-4.8) Monocytes # (Auto) 0.5 x10^3/uL (0.0-1.1) Eosinophils # (Auto) 0.2 x10^3/uL (0.0-0.7) Basophils # (Auto) 0.0 x10^3/uL (0.0-0.2) Problem List Problems Medical Problems: (1) GI bleed Status: Acute (2) Tachycardia Status: Acute Assessment/Plan hgb stable no surgical needs, will sign off Problems: HARMAN MOHR MD 05/28/17 1008: SURGICAL PROGRESS NOTE Assessment/Plan pt seen and examined agree with above Thanks Problems: TEDDY HAWLEY APRN May 28, 2017 09:07 HARMAN MOHR MD May 28, 2017 10:08
[2017-05-28 11:00] VITALS: BP 117/74
--- NOTE | 2017-05-28 11:37 | PDOC ---
Subjective: Subjective: Feeling better, denies bleeding, tolerating. Has passed a few small pieces of stool. Wants to discharge. Objective: Objective: Nursing notes indicate some blood w/ stools overnight. Vital Signs: Vital Signs Date Time Temp Pulse Resp B/P (MAP) Pulse Ox O2 Delivery O2 Flow Rate FiO2 05/28/17 11:00 98.1 99 18 117/74 (88) 96 Room Air 98.1 05/28/17 08:00 2.0 Labs: Laboratory Tests Test 05/28/17 04:44 White Blood Count 5.3 x10^3/uL Red Blood Count 2.83 x10^6/uL Hemoglobin 8.8 g/dL Hematocrit 25.9 % Mean Corpuscular Volume 91 fL Mean Corpuscular Hemoglobin 31 pg Mean Corpuscular Hemoglobin Concent 34 g/dL Red Cell Distribution Width 16.9 % Platelet Count 315 x10^3/uL Neutrophils (%) (Auto) 55 % Lymphocytes (%) (Auto) 31 % Monocytes (%) (Auto) 9 % Eosinophils (%) (Auto) 4 % Basophils (%) (Auto) 1 % Neutrophils # (Auto) 2.9 x10^3uL Lymphocytes # (Auto) 1.6 x10^3/uL Monocytes # (Auto) 0.5 x10^3/uL Eosinophils # (Auto) 0.2 x10^3/uL Basophils # (Auto) 0.0 x10^3/uL Imaging: CT angio A/P 05/26 IMPRESSION: 1. No CT evidence of active GI tract bleeding. 2. Moderate colonic diverticulosis. Colonoscopy 05/26 internal hemorrhoids diverticulosis sigmoid/descending colon limited visualization of cecum due to looping and retained blood EGD 05/25 non-erosive gastritis GI Bleed Scan 05/24 IMPRESSION: Negative radionuclide GI bleeding scan. PE: GEN: NAD LUNGS: clear HEART: tachycardic ABD: S/ND/NT NEURO/PSYCH: A & O 3 A/P: Hematochezia, anemia -Hgb stable -?small amount of blood w/ stools per nursing notes, pt denies -- Reviewed w/ Dr. Velarde - okay to DC w/ stable Hgb. Meckel's scan if rebleeds. DANYA FAJARDO May 28, 2017 11:37
[2017-05-28] MEDS ORDERED: FAMOTIDINE 20 MG TABLET. PO SCH (21:00)
--- NOTE | 2017-06-03 10:50 | DS ---
DATE OF DISCHARGE: 05/28/2017 PRIMARY DIAGNOSIS: Diverticular gastrointestinal bleed. SECONDARY DIAGNOSES: 1. Anemia with transfusion on 2 occasions. 2. Symptomatic anemia. 3. Tachycardia and hypotension with bleeding. 4. Syncope. ADDITIONAL DIAGNOSES: Hyperlipidemia, hypothyroidism and depression. CHIEF COMPLAINT AND HISTORY OF PRESENT ILLNESS: This is a 67-year-old white female who is well known to me from followup in the office. The patient had a GI bleed beginning the night for admission, which she described as a maroon stool all over the bathroom like it was a business teacher shop. She had 2 episodes of syncope with this. She finally presented to the Emergency Room with ongoing GI bleeding. Hemoglobin was in the low 9. She was tachycardic, relatively hypotensive, admitted to the ICU for lower GI bleed. SUMMARY OF STAY: The patient was admitted. She was typed, crossed, transfused with her hemoglobin initially dropping down to 7, coming back up in the 8s, was stable for 2-3 days, then dropped again with a rebleed. At the time, she received a couple of more units and her hemoglobin was 8.8 at the time of discharge. GI followed along with her, did a colonoscopy and finding blood in the colon and diverticulosis and an EGD was without findings for bleeding. She had a CTA of the abdomen showing no evidence of bleeding and had a bleeding scan, although it was delayed for a couple of days due to lack of being able to obtain the radio nucleotide to do it and it was negative surprisingly. She was felt stable and ready for discharge holding on to her hemoglobin for a couple of days at the time of discharge. DISPOSITION: The patient is discharged to home. Regular diet. Activity as tolerated. Office in 1 week. Discharge medications are listed on the med rec and have been given to the patient. MO REED MD DR: VEGA/alfredo JOB#: [id number] / [id number]
== END 2017-05-28 15:03 | disposition home or self-care (01) | DRG 682 ==
LOC: ER 14:48 → 1 WEST ICU 17:31 → 5 NORTH 05-27 13:10
PROVIDERS: ADMIT Family Medicine; ATTEND Family Medicine
PROC: 30233N1 Transfusion of Nonautologous Red Blood Cells into Peripheral Vein, Percutaneous Approach (ICD-10-PCS; 2017-05-23)
PROC: 0DJ08ZZ Inspection of Upper Intestinal Tract, Via Natural or Artificial Opening Endoscopic (ICD-10-PCS; principal; 2017-05-25 17:00)
PROC: 0DJD8ZZ Inspection of Lower Intestinal Tract, Via Natural or Artificial Opening Endoscopic (ICD-10-PCS; 2017-05-26)
DX: N17.9 Acute kidney failure, unspecified (principal); K57.31 Diverticulosis of large intestine without perforation or abscess with bleeding; K55.1 Chronic vascular disorders of intestine; D62 Acute posthemorrhagic anemia; Z68.41 Body mass index [BMI] 40.0-44.9, adult; K64.8 Other hemorrhoids; E66.9 Obesity, unspecified; E03.9 Hypothyroidism, unspecified; E11.9 Type 2 diabetes mellitus without complications; E78.00 Pure hypercholesterolemia, unspecified; E78.5 Hyperlipidemia, unspecified; I10 Essential (primary) hypertension; F32.9 Major depressive disorder, single episode, unspecified; Z90.710 Acquired absence of both cervix and uterus; Z90.49 Acquired absence of other specified parts of digestive tract; Z91.040 Latex allergy status; Z95.0 Presence of cardiac pacemaker; K29.60 Other gastritis without bleeding
CPT/HCPCS: 36415; 71010; 74174; 78278; 80048; 80053; 82607; 82746; 83010; 83540; 83550; 84132; 84484; 85007; 85025; 85027; 85045; 85610; 86850; 86900; 86901; 86920; 87641; 93005; 96360; 96361; 96374; A9560; J2704; J3480; J7030; J7120; P9016; S0028; 99285-25; J2001

== ENCOUNTER 2018-07-22 09:30 | Inpatient (IN) | payer MEDICARE ==
[~2018-07-22] VITALS: Ht 162.6 cm; Wt 122.5 kg
[~2018-07-22 09:30] MED LIST changes: +DULO60CA6 PO; +LEVO88TA4 PO
[2018-07-22 11:00] VITALS: BP 119/61
[2018-07-22] MEDS ORDERED: ATOR40TA59 PO (12:20)
[2018-07-22] MEDS ORDERED: ALPR0.5T6 PO (12:20)
[2018-07-22] MEDS ORDERED: BUSP5TAB PO (12:21)
[2018-07-22] MEDS ORDERED: IV NORMAL SALINE 1000ML BAG 1,000 ML IV ONE (12:30)
[2018-07-22] MEDS: IV NORMAL SALINE 1000ML BAG 1,000 ML IV SCH ×2 (12:30→18:40)
[2018-07-22] MEDS ORDERED: diphenhydrAMINE ORAL ELIXIR 12.5 MG/5 ML ML PO PRN (13:00)
[2018-07-22 13:26] LABS: ALBUMIN 3.4 g/dL (3.4-5.0); ALBUMIN/GLOBULIN RATIO 0.9 (1.0-1.7); CALCIUM 9.1 mg/dL (8.5-10.1); CREATININE 0.8 mg/dL (0.6-1.0); GFR 70.9; POTASSIUM 4.6 mmol/L (3.5-5.1); TOTAL BILIRUBIN 0.5 mg/dL (0.2-1.0)
--- NOTE | 2018-07-22 13:30 | PDOC2 ---
GI CONSULT Reason For Consult: Lower GI bleed, tachy, low BP HPI: HPI: 68 y/o female w/ h/o GI bleeding requiring transfusions directly admitted by Dr. Brown. RN reports concern for tachycardia and hypotension. HR 117, BP 119/ 61. In 05/2017: EGD - nonerosive gastritis. Colonoscopy - limited visualization of cecum due to looping and retained blood, diverticulosis sigmoid/descending colon, internal hemorrhoids. GI bleed scan - negative. CTA A/P - no CT evidence of active GI tract bleeding, moderate colonic diverticulosis. Recommendations to consider Meckel's scan and SBS as next step. This time, says had a stool w/ red blood on 07/19, saw Dr. Brown, and was told her labs "were okay." Then had stools w/o bleeding. Bleeding recurred last night, but she didn't want to do anything about it then because she was tired. Passed slightly darker blood around 6:00 a.m. Possibly "gas pain" associated. Maybe has felt a bit weak. H/o GERD - less frequent now, untreated. No n/v, change in appetite, or weight loss. No CP, SOA, or sweating. No diarrhea or constipation but has has "small" stools recently. No melena. She tells me her heart rate is "always fast," not sure what her BP usually runs. S/p cholecystectomy. No liver or pancreas history. Occasional ibuprofen. PMH: PMH: HTN (history - currently not requiring treatment), HLD, hypothyroidism, depression, GERD, diverticulosis, hemorrhoids, cholecystectomy, hysterectomy FH: Family History: Cancer (father - colon, sister - rectal) Social History: Smoke: No ALCOHOL: none Drugs: None ROS: GEN: Denies fevers, chills, sweats HEENT: Denies blurred vision, sore throat CV: Denies chest pain RESP: Denies shortness of air, cough GI: Per HPI : Denies hematuria, dysuria ENDO: Denies weight changes NEURO: Denies confusion, dizziness MSK: +weakness SKIN: Denies jaundice, pruritus Vitals: Vitals: Vital Signs Date Time Temp Pulse Resp B/P (MAP) Pulse Ox O2 Delivery O2 Flow Rate FiO2 07/22/18 11:00 98.0 117 20 119/61 (80) 93 98.0 Labs: Labs: CBC and CMP pending. Allergies: Coded Allergies: latex (Verified Allergy, Intermediate, 05/25/17) Medications: Current Medications Medications (Trade) Dose Ordered Sig/Tatiana Route PRN Reason Start Time Stop Time Status Last Admin Dose Admin Sodium Chloride 1,000 ml @ 1,000 mls/hr 1X ONCE IV 07/22/18 12:30 07/22/18 13:29 07/22/18 13:16 PE: GEN: NAD, up in recliner, very talkative, joking around HEENT: Atraumatic, PERRL LUNGS: CTAB HEART: tachycardic ABD: NABS, S/NT, obese EXTREMITY: No edema SKIN: No rashes, no jaundice NEURO/PSYCH: A & O 3 A/P: A/P: Recurrent GI bleeding Tachycardia H/o GERD CRC screen - UTD Diverticulosis S/p cholecystectomy -- Past workup per HPI include recent endoscopies. Reviewed w/ Dr. Mendezeck - check bleeding scan. DANYA FAJARDO Jul 22, 2018 13:30
[2018-07-22 13:31] LABS: BASO % 0 % (0-3); EOS # 0.2 x10^3/uL (0.0-0.7); EOS % 2 % (0-3); HEMATOCRIT 34.6 % (36.0-47.0); HEMOGLOBIN 11.9 g/dL (12.0-15.5); LYMPH # 1.8 x10^3/uL (1.0-4.8); LYMPH % 21 % (24-48); MEAN CORPUSCULAR HEMOGLOBIN 33 pg (25-35); MEAN CORPUSCULAR HGB CONC 34 g/dL (31-37); MEAN CORPUSCULAR VOLUME 95 fL (79-100); MONO # 0.7 x10^3/uL (0.0-1.1); MONO % 8 % (0-9); NEUT # 5.9 x10^3uL (1.8-7.7); NEUT % 68 % (31-73); PLATELET COUNT 383 x10^3/uL (140-400); RED BLOOD COUNT 3.64 x10^6/uL (3.50-5.40); RED CELL DISTRIBUTION WIDTH 14.7 % (11.5-14.5); WHITE BLOOD COUNT 8.6 x10^3/uL (4.0-11.0)
[2018-07-22] MEDS ORDERED: HEPARIN for NUC MED 500 UNIT/5 ML DISP.SYRIN. IV ONE (14:00)
[2018-07-22] MEDS: busPIRone 5 MG TABLET. PO SCH ×2 (14:00→20:22)
[2018-07-22 15:00] VITALS: BP 117/74
[2018-07-22] MEDS: PANTOPRAZOLE IV PUSH 40 MG VIAL. IVP SCH (16:02)
--- NOTE | 2018-07-22 16:56 | RAD ---
Radionuclide GI bleeding scan, 07/22/2018: HISTORY: Bloody stools The study was performed utilizing 30 mCi of technetium 99m and a labeled red blood cell technique. Imaging out to 53 minutes showed no abnormal accumulation of activity in the abdomen or pelvis to suggest active GI tract bleeding. IMPRESSION: Negative radionuclide GI bleeding scan Electronically signed by: Abdirahman Nelson MD (07/22/2018 4:52 PM) [facility]
[2018-07-22 19:00] VITALS: BP 149/86
[2018-07-22 23:00] VITALS: BP 138/73
[2018-07-23] MEDS: IV NORMAL SALINE 1000ML BAG 1,000 ML IV SCH ×3 (02:33→20:05)
[2018-07-23 03:03] VITALS: BP 115/69
[2018-07-23 05:06] LABS: HEMATOCRIT 29.9 % (36.0-47.0); HEMOGLOBIN 10.1 g/dL (12.0-15.5); RED BLOOD COUNT 3.13 x10^6/uL (3.50-5.40); RED CELL DISTRIBUTION WIDTH 14.6 % (11.5-14.5); WHITE BLOOD COUNT 7.3 x10^3/uL (4.0-11.0)
[2018-07-23 05:18] LABS: CALCIUM 8.3 mg/dL (8.5-10.1); CREATININE 0.7 mg/dL (0.6-1.0); GFR 82.7; POTASSIUM 3.8 mmol/L (3.5-5.1)
[2018-07-23 07:00] VITALS: BP 124/73
[2018-07-23] MEDS: busPIRone 5 MG TABLET. PO SCH ×4 (08:04→20:04)
[2018-07-23] MEDS: LEVOTHYROXINE 88 MCG TABLET PO SCH ×2 (08:05→13:27)
[2018-07-23] MEDS: DULoxetine HCL 30 MG CAPSULE.DR PO SCH ×2 (08:05→13:27)
[2018-07-23] MEDS: ATORVASTATIN CALCIUM 40 MG TABLET. PO SCH ×2 (08:05→13:27)
[2018-07-23] MEDS: PANTOPRAZOLE IV PUSH 40 MG VIAL. IVP SCH (08:57)
--- NOTE | 2018-07-23 10:46 | HP ---
ADMIT DATE: 07/22/2018 CHIEF COMPLAINT AND HISTORY OF PRESENT ILLNESS: This 68-year-old white female is well known to me from followup in the office. The patient was admitted a year or so ago with a GI bleed with full investigation leading to the finding that it was probably diverticular in nature. She began having some bright red blood with stools a couple of days prior to this and was seen in the office, and her hemoglobin was 13.8. She had not done any further bleeding since the day prior, with the instructions to see immediately if there is further bleeding. She began bleeding on the day of admission. The blood, which had initially been bright red, was turning more to maroon. The patient was admitted. She was initially relatively hypotensive and tachycardic, fluid resuscitated. Telemetry added in serial CBCs to be done as well as GI consultation. PAST MEDICAL HISTORY: Remarkable for hypertension, sleep apnea, diverticulosis, colitis, GERD, urinary tract infections, hypothyroidism, depression and anxiety. PAST SURGICAL HISTORY: Remarkable for cataracts, T and A, cholecystectomy and hysterectomy. MEDICATIONS: Medications were brought with the patient, listed on the computer and have been addressed. ALLERGIES: SHE IS ALLERGIC TO LATEX. SOCIAL HISTORY: She is nonsmoker, nondrinker and does not use drugs. Lives at home alone. FAMILY HISTORY: Noncontributory. REVIEW OF SYSTEMS: That as mentioned above. PHYSICAL EXAMINATION: GENERAL: She is well-developed, well-nourished white female, in no acute distress by the time of my examination. She is awake and alert. VITAL SIGNS: Stable. She still remains somewhat tachycardic with a heart rate of 109. HEAD, EYES, EARS, NOSE AND THROAT: Unremarkable. NECK: Supple, without adenopathy or thyromegaly. CHEST: Clear to auscultation and percussion. HEART: Regular rate and rhythm, without S3, S4 or murmur. ABDOMEN: Soft, nontender, without hepatosplenomegaly or masses. EXTREMITIES: Without cyanosis, clubbing or edema. NEUROLOGIC: She is intact. LABORATORY DATA: Admit hemoglobin was 11.9, which is down 2 grams from a couple of days earlier in the office and is 10.1 this morning. IMPRESSION: Gastrointestinal bleed with anemia, hypotension and tachycardia. PLAN: Continue telemetry. GI is on board. We will continue to follow CBCs with transfusion as necessary. I would guess that there is no investigation needed at this point in time for the GI bleed unless it becomes more severe with negative findings before, but we will defer this to GI. MO REED MD DR: VEGA/alfredo JOB#: [id number] / [id number]
[2018-07-23 11:00] VITALS: BP 104/79
--- NOTE | 2018-07-23 12:49 | PDOC ---
G I PROGRESS NOTE Reason for Follow-up Rectal bleed Subjective Minimal bleeding today Physical Exam Lungs clear CV S1 S2 ABD +BS, soft, nontender Review of Relevant I have reviewed the following items gabriel (where applicable) has been applied. Labs Laboratory Tests Test 07/22/18 12:59 07/23/18 04:00 White Blood Count 8.6 x10^3/uL (4.0-11.0) 7.3 x10^3/uL (4.0-11.0) Red Blood Count 3.64 x10^6/uL (3.50-5.40) 3.13 x10^6/uL (3.50-5.40) Hemoglobin 11.9 g/dL (12.0-15.5) 10.1 g/dL (12.0-15.5) Hematocrit 34.6 % (36.0-47.0) 29.9 % (36.0-47.0) Mean Corpuscular Volume 95 fL (79-100) 96 fL (79-100) Mean Corpuscular Hemoglobin 33 pg (25-35) 32 pg (25-35) Mean Corpuscular Hemoglobin Concent 34 g/dL (31-37) 34 g/dL (31-37) Red Cell Distribution Width 14.7 % (11.5-14.5) 14.6 % (11.5-14.5) Platelet Count 383 x10^3/uL (140-400) 308 x10^3/uL (140-400) Neutrophils (%) (Auto) 68 % (31-73) Lymphocytes (%) (Auto) 21 % (24-48) Monocytes (%) (Auto) 8 % (0-9) Eosinophils (%) (Auto) 2 % (0-3) Basophils (%) (Auto) 0 % (0-3) Neutrophils # (Auto) 5.9 x10^3uL (1.8-7.7) Lymphocytes # (Auto) 1.8 x10^3/uL (1.0-4.8) Monocytes # (Auto) 0.7 x10^3/uL (0.0-1.1) Eosinophils # (Auto) 0.2 x10^3/uL (0.0-0.7) Basophils # (Auto) 0.0 x10^3/uL (0.0-0.2) Sodium Level 141 mmol/L (136-145) 141 mmol/L (136-145) Potassium Level 4.6 mmol/L (3.5-5.1) 3.8 mmol/L (3.5-5.1) Chloride Level 104 mmol/L (98-107) 107 mmol/L (98-107) Carbon Dioxide Level 27 mmol/L (21-32) 25 mmol/L (21-32) Anion Gap 10 (6-14) 9 (6-14) Blood Urea Nitrogen 21 mg/dL (7-20) 18 mg/dL (7-20) Creatinine 0.8 mg/dL (0.6-1.0) 0.7 mg/dL (0.6-1.0) Estimated GFR (Cockcroft-Gault) 70.9 82.7 BUN/Creatinine Ratio 26 (6-20) Glucose Level 108 mg/dL (70-99) 128 mg/dL (70-99) Calcium Level 9.1 mg/dL (8.5-10.1) 8.3 mg/dL (8.5-10.1) Total Bilirubin 0.5 mg/dL (0.2-1.0) Aspartate Amino Transf (AST/SGOT) 12 U/L (15-37) Alanine Aminotransferase (ALT/SGPT) 20 U/L (14-59) Alkaline Phosphatase 125 U/L (46-116) Total Protein 7.0 g/dL (6.4-8.2) Albumin 3.4 g/dL (3.4-5.0) Albumin/Globulin Ratio 0.9 (1.0-1.7) Laboratory Tests Test 07/22/18 12:59 07/23/18 04:00 White Blood Count 8.6 x10^3/uL (4.0-11.0) 7.3 x10^3/uL (4.0-11.0) Red Blood Count 3.64 x10^6/uL (3.50-5.40) 3.13 x10^6/uL (3.50-5.40) Hemoglobin 11.9 g/dL (12.0-15.5) 10.1 g/dL (12.0-15.5) Hematocrit 34.6 % (36.0-47.0) 29.9 % (36.0-47.0) Mean Corpuscular Volume 95 fL (79-100) 96 fL (79-100) Mean Corpuscular Hemoglobin 33 pg (25-35) 32 pg (25-35) Mean Corpuscular Hemoglobin Concent 34 g/dL (31-37) 34 g/dL (31-37) Red Cell Distribution Width 14.7 % (11.5-14.5) 14.6 % (11.5-14.5) Platelet Count 383 x10^3/uL (140-400) 308 x10^3/uL (140-400) Neutrophils (%) (Auto) 68 % (31-73) Lymphocytes (%) (Auto) 21 % (24-48) Monocytes (%) (Auto) 8 % (0-9) Eosinophils (%) (Auto) 2 % (0-3) Basophils (%) (Auto) 0 % (0-3) Neutrophils # (Auto) 5.9 x10^3uL (1.8-7.7) Lymphocytes # (Auto) 1.8 x10^3/uL (1.0-4.8) Monocytes # (Auto) 0.7 x10^3/uL (0.0-1.1) Eosinophils # (Auto) 0.2 x10^3/uL (0.0-0.7) Basophils # (Auto) 0.0 x10^3/uL (0.0-0.2) Sodium Level 141 mmol/L (136-145) 141 mmol/L (136-145) Potassium Level 4.6 mmol/L (3.5-5.1) 3.8 mmol/L (3.5-5.1) Chloride Level 104 mmol/L (98-107) 107 mmol/L (98-107) Carbon Dioxide Level 27 mmol/L (21-32) 25 mmol/L (21-32) Anion Gap 10 (6-14) 9 (6-14) Blood Urea Nitrogen 21 mg/dL (7-20) 18 mg/dL (7-20) Creatinine 0.8 mg/dL (0.6-1.0) 0.7 mg/dL (0.6-1.0) Estimated GFR (Cockcroft-Gault) 70.9 82.7 BUN/Creatinine Ratio 26 (6-20) Glucose Level 108 mg/dL (70-99) 128 mg/dL (70-99) Calcium Level 9.1 mg/dL (8.5-10.1) 8.3 mg/dL (8.5-10.1) Total Bilirubin 0.5 mg/dL (0.2-1.0) Aspartate Amino Transf (AST/SGOT) 12 U/L (15-37) Alanine Aminotransferase (ALT/SGPT) 20 U/L (14-59) Alkaline Phosphatase 125 U/L (46-116) Total Protein 7.0 g/dL (6.4-8.2) Albumin 3.4 g/dL (3.4-5.0) Albumin/Globulin Ratio 0.9 (1.0-1.7) Medications Current Medications Sodium Chloride 1,000 ml @ 1,000 mls/hr 1X ONCE IV Last administered on 07/22at 13:16; Start 07/22/18 at 12:30; Stop 07/22/18 at 13:29; Status DC Sodium Chloride 1,000 ml @ 125 mls/hr Q8H IV Last administered on 07/23/18at 12 :25; Start 07/22/18 at 12:30 Alprazolam (Xanax) 0.5 mg PRN DAILY PRN PO ANXIETY / AGITATION; Start at 13:00 Atorvastatin Calcium (Lipitor) 40 mg DAILY PO ; Start 07/23/18 at 09:00 Buspirone HCl (Buspar) 5 mg TID PO Last administered on 07/22/18at 20:22; Start 07/22/18 at 14:00 Levothyroxine Sodium (Synthroid) 44 mcg DAILY PO ; Start 07/23/18 at 09:00 Diphenhydramine HCl (Benadryl Oral Elixir) 12.5 mg DAILY PRN PO ITCHING; Start 07/22/18 at 13:00 Duloxetine HCl (Cymbalta) 120 mg DAILY PO ; Start 07/23/18 at 09:00 Pantoprazole Sodium (PROTONIX VIAL for IV PUSH) 40 mg DAILYAC IVP Last administered on 07/23/18at 08:57; Start 07/22/18 at 14:00 Heparin Sodium (Porcine) (HEPARIN for NUC MED) 100 unit 1X ONCE IV ; Start at 14:00; Stop 07/22/18 at 14:03; Status DC Active Scripts Active Reported Buspirone Hcl 5 Mg Tablet 1 Tab PO TID Atorvastatin Calcium 40 Mg Tablet 1 Tab PO DAILY Alprazolam 0.5 Mg Tablet 1 Tab PO DAILY PRN Levothyroxine Sodium 88 Mcg Tablet 0.5 Tab PO DAILY Cymbalta (Duloxetine Hcl) 60 Mg Capsule.dr 120 Mg PO DAILY Ibuprofen 400 Mg Tablet 200 Mg PO PRN Q6HRS PRN Benadryl Allergy (Diphenhydramine Hcl) 12.5 Mg/5 Ml Liquid 12.5 Mg PO PRN DAILY PRN Vitals/I & O Vital Sign - Last 24 Hours 07/22/18 07/22/18 07/22/18 07/22/18 15:00 19:00 20:00 23:00 Temp 97.3 98.4 98.6 97.3 98.4 98.6 Pulse 119 115 106 Resp 20 20 20 B/P (MAP) 117/74 (88) 149/86 (107) 138/73 (94) Pulse Ox 93 93 96 O2 Delivery Room Air Room Air Room Air 07/23/18 07/23/18 07/23/18 07/23/18 03:03 07:00 08:00 11:00 Temp 98.2 98.4 98.1 98.2 98.4 98.1 Pulse 119 109 106 Resp 20 18 18 B/P (MAP) 115/69 (84) 124/73 (90) 104/79 (87) Pulse Ox 96 95 95 O2 Delivery Room Air Room Air Room Air Room Air Intake and Output 07/22/18 07/22/18 07/23/18 15:00 23:00 07:00 Intake Total 0 ml 1000 ml 1000 ml Output Total 0 ml Balance 0 ml 1000 ml 1000 ml Problem List Rectal bleed- most likely acute self limited diverticular bleed, Advance diet and if CBC stable release MICHEAL GODDARD MD Jul 23, 2018 12:49
[2018-07-23] MEDS: ALPRAZolam 0.5 MG TABLET PO PRN (13:27)
[2018-07-23 15:00] VITALS: BP 108/66
[2018-07-23 16:52] LABS: BASO % 1 % (0-3); EOS # 0.2 x10^3/uL (0.0-0.7); EOS % 3 % (0-3); HEMATOCRIT 27.9 % (36.0-47.0); HEMOGLOBIN 9.7 g/dL (12.0-15.5); LYMPH # 1.4 x10^3/uL (1.0-4.8); LYMPH % 20 % (24-48); MEAN CORPUSCULAR HEMOGLOBIN 33 pg (25-35); MEAN CORPUSCULAR HGB CONC 35 g/dL (31-37); MEAN CORPUSCULAR VOLUME 96 fL (79-100); MONO # 0.7 x10^3/uL (0.0-1.1); MONO % 10 % (0-9); NEUT # 4.7 x10^3uL (1.8-7.7); NEUT % 66 % (31-73); PLATELET COUNT 294 x10^3/uL (140-400); RED BLOOD COUNT 2.92 x10^6/uL (3.50-5.40); RED CELL DISTRIBUTION WIDTH 14.5 % (11.5-14.5); WHITE BLOOD COUNT 7.1 x10^3/uL (4.0-11.0)
[2018-07-23 19:00] VITALS: BP 114/66
[2018-07-23 23:00] VITALS: BP 117/58
[2018-07-24 03:00] VITALS: BP 126/56
[2018-07-24] MEDS: IV NORMAL SALINE 1000ML BAG 1,000 ML IV SCH ×2 (03:09→12:03)
[2018-07-24 04:59] LABS: BASO % 1 % (0-3); EOS # 0.2 x10^3/uL (0.0-0.7); EOS % 4 % (0-3); HEMATOCRIT 27.2 % (36.0-47.0); HEMOGLOBIN 9.4 g/dL (12.0-15.5); LYMPH # 1.3 x10^3/uL (1.0-4.8); LYMPH % 22 % (24-48); MEAN CORPUSCULAR HEMOGLOBIN 33 pg (25-35); MEAN CORPUSCULAR HGB CONC 34 g/dL (31-37); MEAN CORPUSCULAR VOLUME 96 fL (79-100); MONO # 0.5 x10^3/uL (0.0-1.1); MONO % 8 % (0-9); NEUT # 3.9 x10^3uL (1.8-7.7); NEUT % 66 % (31-73); PLATELET COUNT 280 x10^3/uL (140-400); RED BLOOD COUNT 2.85 x10^6/uL (3.50-5.40); RED CELL DISTRIBUTION WIDTH 14.8 % (11.5-14.5)
[2018-07-24 07:00] VITALS: BP 127/73
[2018-07-24] MEDS: PANTOPRAZOLE IV PUSH 40 MG VIAL. IVP SCH (09:02)
[2018-07-24] MEDS: busPIRone 5 MG TABLET. PO SCH (09:02)
[2018-07-24] MEDS: ATORVASTATIN CALCIUM 40 MG TABLET. PO SCH (09:02)
[2018-07-24] MEDS: DULoxetine HCL 30 MG CAPSULE.DR PO SCH (09:02)
[2018-07-24] MEDS: LEVOTHYROXINE 88 MCG TABLET PO SCH (09:02)
[2018-07-24] MEDS: ALPRAZolam 0.5 MG TABLET PO PRN (09:03)
--- NOTE | 2018-07-24 10:43 | PDOC ---
GENERAL General: see discharge summary. VITAL SIGNS Vital Signs: Vital Signs Date Time Temp Pulse Resp B/P (MAP) Pulse Ox O2 Delivery O2 Flow Rate FiO2 07/24/18 08:00 Room Air 07/24/18 07:00 98.3 107 18 127/73 (91) 95 98.3 I & O I & O Intake and Output 07/24/18 07:00 Intake Total 620 ml Balance 620 ml Intake Oral 620 ml # Voids 2 ALLERGIES Allergies: Allergies Coded Allergies Type Severity Reaction Last Updated Verified latex Allergy Intermediate 05/25/17 Yes MEDS Medications: Current Medications Medications (Trade) Dose Ordered Sig/Tatiana Start Time Stop Time Status Last Admin Dose Admin Alprazolam (Xanax) 0.5 mg PRN DAILY PRN 07/22/18 13:00 07/24/18 09:03 0.5 MG Atorvastatin Calcium (Lipitor) 40 mg DAILY 07/23/18 09:00 07/24/18 09:02 40 MG Buspirone HCl (Buspar) 5 mg TID 07/22/18 14:00 07/24/18 09:02 5 MG Diphenhydramine HCl (Benadryl Oral Elixir) 12.5 mg DAILY PRN 07/22/18 13:00 Duloxetine HCl (Cymbalta) 120 mg DAILY 07/23/18 09:00 07/24/18 09:02 120 MG Heparin Sodium (Porcine) (HEPARIN for NUC MED) 100 unit 1X ONCE 07/22/18 14:00 07/22/18 14:03 DC Levothyroxine Sodium (Synthroid) 44 mcg DAILY 07/23/18 09:00 07/24/18 09:02 44 MCG Pantoprazole Sodium (PROTONIX VIAL for IV PUSH) 40 mg DAILYAC 07/22/18 14:00 07/24/18 09:02 40 MG Sodium Chloride 1,000 ml @ 125 mls/hr Q8H 07/22/18 12:30 07/24/18 03:09 125 MLS/HR LAB Lab: Laboratory Tests Test 07/23/18 16:45 07/24/18 03:50 White Blood Count 7.1 x10^3/uL (4.0-11.0) 6.0 x10^3/uL (4.0-11.0) Red Blood Count 2.92 x10^6/uL (3.50-5.40) 2.85 x10^6/uL (3.50-5.40) Hemoglobin 9.7 g/dL (12.0-15.5) 9.4 g/dL (12.0-15.5) Hematocrit 27.9 % (36.0-47.0) 27.2 % (36.0-47.0) Mean Corpuscular Volume 96 fL (79-100) 96 fL (79-100) Mean Corpuscular Hemoglobin 33 pg (25-35) 33 pg (25-35) Mean Corpuscular Hemoglobin Concent 35 g/dL (31-37) 34 g/dL (31-37) Red Cell Distribution Width 14.5 % (11.5-14.5) 14.8 % (11.5-14.5) Platelet Count 294 x10^3/uL (140-400) 280 x10^3/uL (140-400) Neutrophils (%) (Auto) 66 % (31-73) 66 % (31-73) Lymphocytes (%) (Auto) 20 % (24-48) 22 % (24-48) Monocytes (%) (Auto) 10 % (0-9) 8 % (0-9) Eosinophils (%) (Auto) 3 % (0-3) 4 % (0-3) Basophils (%) (Auto) 1 % (0-3) 1 % (0-3) Neutrophils # (Auto) 4.7 x10^3uL (1.8-7.7) 3.9 x10^3uL (1.8-7.7) Lymphocytes # (Auto) 1.4 x10^3/uL (1.0-4.8) 1.3 x10^3/uL (1.0-4.8) Monocytes # (Auto) 0.7 x10^3/uL (0.0-1.1) 0.5 x10^3/uL (0.0-1.1) Eosinophils # (Auto) 0.2 x10^3/uL (0.0-0.7) 0.2 x10^3/uL (0.0-0.7) Basophils # (Auto) 0.0 x10^3/uL (0.0-0.2) 0.0 x10^3/uL (0.0-0.2) APPL,MO Romero MD Jul 24, 2018 10:43
[2018-07-24 11:00] VITALS: BP 148/76
--- NOTE | 2018-07-24 11:26 | DS ---
DATE OF DISCHARGE: 07/24/2018 PRIMARY DIAGNOSIS: Lower gastrointestinal bleed. ADDITIONAL DIAGNOSES: Anemia, hypertension, obstructive sleep apnea, hypothyroidism, depression, anxiety. CHIEF COMPLAINT AND HISTORY OF PRESENT ILLNESS: This 68-year-old white female with a history of GI bleeds, presumed diverticular, presented to the Emergency Room with a couple of days of beginning with bright red rectal bleeding, changing over to maroon. She had been seen in the office a couple of days prior to admission with her hemoglobin of 13.8 and by the time she presented to the Emergency Room it was down to 11.9. SUMMARY OF STAY: The patient was admitted, monitored. GI saw her. She stopped bleeding for 24 hours prior to the time of discharge. Her hemoglobin leveled out at 9.4 on the day of discharge and had been 9.7 the morning prior. She did not have any significant symptomatology, although she initially had had some relative hypotension and tachycardia on admission. She still had a heart rate around 100 by the time of discharge, but blood pressures were stable. GI felt it was okay for discharge and to return if there was any further bleeding since it had been 24 hours without bleeding and the patient was felt ready for discharge. It was felt there was probably no need to continue the Protonix at the time of discharge as this was clearly a lower GI bleed. DISPOSITION: The patient is discharged to home. Regular diet, activity as tolerated, office Wednesday with a CBC. She is instructed if there is any further significant bleeding to return to the Emergency Room where she will likely need to be readmitted. MO REED MD DR: VEGA/alfredo JOB#: [id number] / [id number]
--- NOTE | 2018-07-24 13:17 | PDOC ---
G I PROGRESS NOTE Reason for Follow-up GI bleed Subjective No further bleeding Physical Exam Lungs clear CV S1 S2 ABD +BS, soft, nontender Review of Relevant I have reviewed the following items gabriel (where applicable) has been applied. Labs Laboratory Tests Test 07/23/18 04:00 07/23/18 16:45 07/24/18 03:50 White Blood Count 7.3 x10^3/uL (4.0-11.0) 7.1 x10^3/uL (4.0-11.0) 6.0 x10^3/uL (4.0-11.0) Red Blood Count 3.13 x10^6/uL (3.50-5.40) 2.92 x10^6/uL (3.50-5.40) 2.85 x10^6/uL (3.50-5.40) Hemoglobin 10.1 g/dL (12.0-15.5) 9.7 g/dL (12.0-15.5) 9.4 g/dL (12.0-15.5) Hematocrit 29.9 % (36.0-47.0) 27.9 % (36.0-47.0) 27.2 % (36.0-47.0) Mean Corpuscular Volume 96 fL (79-100) 96 fL (79-100) 96 fL (79-100) Mean Corpuscular Hemoglobin 32 pg (25-35) 33 pg (25-35) 33 pg (25-35) Mean Corpuscular Hemoglobin Concent 34 g/dL (31-37) 35 g/dL (31-37) 34 g/dL (31-37) Red Cell Distribution Width 14.6 % (11.5-14.5) 14.5 % (11.5-14.5) 14.8 % (11.5-14.5) Platelet Count 308 x10^3/uL (140-400) 294 x10^3/uL (140-400) 280 x10^3/uL (140-400) Sodium Level 141 mmol/L (136-145) Potassium Level 3.8 mmol/L (3.5-5.1) Chloride Level 107 mmol/L (98-107) Carbon Dioxide Level 25 mmol/L (21-32) Anion Gap 9 (6-14) Blood Urea Nitrogen 18 mg/dL (7-20) Creatinine 0.7 mg/dL (0.6-1.0) Estimated GFR (Cockcroft-Gault) 82.7 Glucose Level 128 mg/dL (70-99) Calcium Level 8.3 mg/dL (8.5-10.1) Neutrophils (%) (Auto) 66 % (31-73) 66 % (31-73) Lymphocytes (%) (Auto) 20 % (24-48) 22 % (24-48) Monocytes (%) (Auto) 10 % (0-9) 8 % (0-9) Eosinophils (%) (Auto) 3 % (0-3) 4 % (0-3) Basophils (%) (Auto) 1 % (0-3) 1 % (0-3) Neutrophils # (Auto) 4.7 x10^3uL (1.8-7.7) 3.9 x10^3uL (1.8-7.7) Lymphocytes # (Auto) 1.4 x10^3/uL (1.0-4.8) 1.3 x10^3/uL (1.0-4.8) Monocytes # (Auto) 0.7 x10^3/uL (0.0-1.1) 0.5 x10^3/uL (0.0-1.1) Eosinophils # (Auto) 0.2 x10^3/uL (0.0-0.7) 0.2 x10^3/uL (0.0-0.7) Basophils # (Auto) 0.0 x10^3/uL (0.0-0.2) 0.0 x10^3/uL (0.0-0.2) Laboratory Tests Test 07/23/18 16:45 07/24/18 03:50 White Blood Count 7.1 x10^3/uL (4.0-11.0) 6.0 x10^3/uL (4.0-11.0) Red Blood Count 2.92 x10^6/uL (3.50-5.40) 2.85 x10^6/uL (3.50-5.40) Hemoglobin 9.7 g/dL (12.0-15.5) 9.4 g/dL (12.0-15.5) Hematocrit 27.9 % (36.0-47.0) 27.2 % (36.0-47.0) Mean Corpuscular Volume 96 fL (79-100) 96 fL (79-100) Mean Corpuscular Hemoglobin 33 pg (25-35) 33 pg (25-35) Mean Corpuscular Hemoglobin Concent 35 g/dL (31-37) 34 g/dL (31-37) Red Cell Distribution Width 14.5 % (11.5-14.5) 14.8 % (11.5-14.5) Platelet Count 294 x10^3/uL (140-400) 280 x10^3/uL (140-400) Neutrophils (%) (Auto) 66 % (31-73) 66 % (31-73) Lymphocytes (%) (Auto) 20 % (24-48) 22 % (24-48) Monocytes (%) (Auto) 10 % (0-9) 8 % (0-9) Eosinophils (%) (Auto) 3 % (0-3) 4 % (0-3) Basophils (%) (Auto) 1 % (0-3) 1 % (0-3) Neutrophils # (Auto) 4.7 x10^3uL (1.8-7.7) 3.9 x10^3uL (1.8-7.7) Lymphocytes # (Auto) 1.4 x10^3/uL (1.0-4.8) 1.3 x10^3/uL (1.0-4.8) Monocytes # (Auto) 0.7 x10^3/uL (0.0-1.1) 0.5 x10^3/uL (0.0-1.1) Eosinophils # (Auto) 0.2 x10^3/uL (0.0-0.7) 0.2 x10^3/uL (0.0-0.7) Basophils # (Auto) 0.0 x10^3/uL (0.0-0.2) 0.0 x10^3/uL (0.0-0.2) Medications Current Medications Sodium Chloride 1,000 ml @ 1,000 mls/hr 1X ONCE IV Last administered on 07/22at 13:16; Start 07/22/18 at 12:30; Stop 07/22/18 at 13:29; Status DC Sodium Chloride 1,000 ml @ 125 mls/hr Q8H IV Last administered on 07/24/18at 03 :09; Start 07/22/18 at 12:30 Alprazolam (Xanax) 0.5 mg PRN DAILY PRN PO ANXIETY / AGITATION Last administered on 07/24/18at 09:03; Start 07/22/18 at 13:00 Atorvastatin Calcium (Lipitor) 40 mg DAILY PO Last administered on 07/24/18at 09 :02; Start 07/23/18 at 09:00 Buspirone HCl (Buspar) 5 mg TID PO Last administered on 07/24/18 09:02; Start 07/22/18 at 14:00 Levothyroxine Sodium (Synthroid) 44 mcg DAILY PO Last administered on at 09:02; Start 07/23/18 at 09:00 Diphenhydramine HCl (Benadryl Oral Elixir) 12.5 mg DAILY PRN PO ITCHING; Start 07/22/18 at 13:00 Duloxetine HCl (Cymbalta) 120 mg DAILY PO Last administered on 07/24/18at 09:02 ; Start 07/23/18 at 09:00 Pantoprazole Sodium (PROTONIX VIAL for IV PUSH) 40 mg DAILYAC IVP Last administered on 07/24/18at 09:02; Start 07/22/18 at 14:00 Heparin Sodium (Porcine) (HEPARIN for NUC MED) 100 unit 1X ONCE IV ; Start at 14:00; Stop 07/22/18 at 14:03; Status DC Active Scripts Active Reported Buspirone Hcl 5 Mg Tablet 1 Tab PO TID Atorvastatin Calcium 40 Mg Tablet 1 Tab PO DAILY Alprazolam 0.5 Mg Tablet 1 Tab PO DAILY PRN Levothyroxine Sodium 88 Mcg Tablet 0.5 Tab PO DAILY Cymbalta (Duloxetine Hcl) 60 Mg Capsule.dr 120 Mg PO DAILY Benadryl Allergy (Diphenhydramine Hcl) 12.5 Mg/5 Ml Liquid 12.5 Mg PO PRN DAILY PRN Vitals/I & O Vital Sign - Last 24 Hours 07/23/18 07/23/18 07/23/18 07/23/18 15:00 19:00 20:00 23:00 Temp 98.3 98.4 98.4 98.3 98.4 98.4 Pulse 118 111 103 Resp 18 B/P (MAP) 108/66 (80) 114/66 (82) 117/58 (77) Pulse Ox 91 93 94 O2 Delivery Room Air Room Air Room Air Room Air 07/24/18 07/24/18 07/24/18 07/24/18 03:00 07:00 08:00 11:00 Temp 97.8 98.3 98.3 97.8 98.3 98.3 Pulse 105 107 119 Resp 18 B/P (MAP) 126/56 (79) 127/73 (91) 148/76 (100) Pulse Ox 94 95 95 O2 Delivery Room Air Room Air Room Air Room Air Intake and Output 07/23/18 07/23/18 07/24/18 15:00 23:00 07:00 Intake Total 0 ml 220 ml 400 ml Balance 0 ml 220 ml 400 ml Problem List Rectal bleed- most likely self limited diverticular bleed, Hg stable, stable for release MICHEAL GODDARD MD Jul 24, 2018 13:17
== END 2018-07-24 13:19 | disposition home or self-care (01) | DRG 379 ==
LOC: 5 NORTH 10:35
PROVIDERS: ADMIT Family Medicine; ATTEND Family Medicine
DX: K92.2 Gastrointestinal hemorrhage, unspecified (principal); D64.9 Anemia, unspecified; E03.9 Hypothyroidism, unspecified; G47.30 Sleep apnea, unspecified; F32.9 Major depressive disorder, single episode, unspecified; I10 Essential (primary) hypertension; I95.9 Hypotension, unspecified; F41.9 Anxiety disorder, unspecified; K21.9 Gastro-esophageal reflux disease without esophagitis; Z80.9 Family history of malignant neoplasm, unspecified; K64.8 Other hemorrhoids; Z90.49 Acquired absence of other specified parts of digestive tract; Z90.710 Acquired absence of both cervix and uterus; Z91.040 Latex allergy status; Z87.440 Personal history of urinary (tract) infections; Z79.899 Other long term (current) drug therapy
CPT/HCPCS: 36415; 78278; 80048; 80053; 85025; 85027; 96374; A9560; C9113; J7030

== ENCOUNTER 2019-05-06 14:40 | Emergency (ER) | payer MEDICARE ==
[~2019-05-06] VITALS: Ht 162.6 cm; Wt 124.7 kg
[~2019-05-06 14:40] MED LIST changes: +ALPR0.5T6 PO; +ATOR40TA59 PO; +BUSP5TAB PO
[2019-05-06] MEDS ORDERED: fentaNYL PF VIAL 100 MCG/2 ML VIAL IM ONE (15:00)
--- NOTE | 2019-05-06 15:26 | PHYS DOC ---
Past Medical History Past Medical History: Depression, Diverticulitis, High Cholesterol Additional Past Medical Histor: Thyroid DZ,GI BLEED Past Surgical History: Appendectomy, Cholecystectomy, Hysterectomy Alcohol Use: None Drug Use: None Adult General Chief Complaint Chief Complaint: WRIST PAIN [facility] HPI Patient is a 69 year old right-handed female who presents with complaining of injury to left wrist. Patient states she lost her balance while she was at her bedroom and fell forward and landed on hyperextended left wrist with pain and erythema and tenderness of left wrist without other injuries and loss of consciousness. Patient rated her pain 4/10 after she applied ice on her wrist at home and asking for pain medication in ER. Review of Systems Review of Systems Constitutional: Denies fever or chills [] Eyes: Denies change in visual acuity, redness, or eye pain [] HENT: Denies nasal congestion or sore throat [] Respiratory: Denies cough or shortness of breath [] Cardiovascular: No additional information not addressed in HPI [] GI: Denies abdominal pain, nausea, vomiting, bloody stools or diarrhea [] : Denies dysuria or hematuria [] Musculoskeletal: Denies back pain, reports joint pain [] Integument: Denies rash or skin lesions [] Neurologic: Denies headache, focal weakness or sensory changes [] Endocrine: Denies polyuria or polydipsia [] All other systems were reviewed and found to be within normal limits, except as documented in this note. Current Medications Current Medications Current Medications Medications (Trade) Dose Ordered Sig/Tatiana Start Time Stop Time Status Last Admin Dose Admin Fentanyl Citrate (Fentanyl 2ml Vial) 50 mcg 1X ONCE 05/06/19 15:00 05/06/19 15:01 DC 05/06/19 15:02 50 MCG Allergies Allergies Allergies Coded Allergies Type Severity Reaction Last Updated Verified latex Allergy Intermediate 05/25/17 Yes Physical Exam Physical Exam Constitutional: Well developed, well nourished, mild distress, non-toxic appearance. [] HENT: Normocephalic, atraumatic. Eyes: PERRLA, EOMI, conjunctiva normal, no discharge. [] Neck: Normal range of motion, no tenderness, supple, no stridor. [] Cardiovascular:Heart rate regular rhythm, no murmur [] Lungs & Thorax: Bilateral breath sounds clear to auscultation [] Extremities: Left wrist with mild deformity and edema and tenderness in radial side without neurovascular deficit Neurologic: Alert and oriented X 3, no focal deficits noted. [] Psychologic: Affect normal, judgement normal, mood normal. [] Current Patient Data Vital Signs Vital Signs Date Time Temp Pulse Resp B/P (MAP) Pulse Ox O2 Delivery O2 Flow Rate FiO2 05/06/19 15:02 18 92 Room Air 05/06/19 14:45 97.7 115 166/75 (105) 97.7 EKG EKG [] Radiology/Procedures Radiology/Procedures [facility] [address] [place] [address] IMAGING REPORT Signed PATIENT: NATHAN BAINOUNT: [id number] : 1950 LOCATION: ER AGE: 69 SEX: F EXAM STATUS: REG ER ORD. PHYSICIAN: RUTHANN MOLINA MD REASON: fall injury PAIN LEFT WRIST PROCEDURE: WRIST 3V LEFT WRIST 3V LEFT History: Left wrist pain. Technique: 3 views left wrist. Comparison: None. Findings: Nondisplaced distal left radial fracture. Mildly displaced ulnar styloid fracture. Otherwise, normal alignment. Moderate first carpometacarpal and triscaphe DJD. Impression: 1. Nondisplaced distal left radial fracture. 2. Mildly displaced ulnar styloid fracture. Electronically signed by: Dejan Adkins DO (05/06/2019 3:53 PM) [facility] DICTATED and SIGNED BY: DEJAN ADKINS DO DATE: 05/06/19 1553 Course & Med Decision Making Course & Med Decision Making Pertinent Imaging studies reviewed. (See chart for details) Evaluation of patient in ER showed 69-year-old male patient with a fall and injury to left wrist. Patient had distal radial and ulnar styloid fracture. Patient treated with fentanyl IM and placed a splint and shoulder sling was hema lied. Patient was advised to follow-up with on-call orthopedic physician. I've spoken with the patient and/or caregivers. I've explained the patient's condition, diagnosis and treatment plan based on information available to me at this time. I've answered the patient's and/or caregivers questions and addressed any concerns. The patient and/or caregivers have a good understanding the patient's diagnosis, condition and treatment plan as can be expected at this point. Vital signs have been stabilized. The patient's condition is stable for discharge from the emergency department. The patient will pursue further outpatient evaluation with her primary care provider or other designated consulting physician as outlined in the discharge instructions. Patient and/or caregivers are agreeable to this plan of care and follow-up instructions have been explained in detail. The patient and/or caregivers have received these instructions in written format and expressed understanding of these discharge instructions. The patient and her caregivers are aware that if any significant change in condition or worsening of symptoms should prompt him to immediately return to this of the closest emergency department. If an emergent department is not readily available I would encourage him to call 911. Mishel Disclaimer Dragon Disclaimer This electronic medical record was generated, in whole or in part, using a voice recognition dictation system. Departure Departure Impression: Primary Impression: Distal radius fracture, left Additional Impressions: Fracture of styloid process of left ulna Fall at home Disposition: HOME, SELF-CARE ([id number]) Condition: IMPROVED Referrals: MO REED MD (PCP) ANNE LEE MD Patient Instructions: Fall Prevention and Home Safety, Radial Fracture, Ulnar Fracture Additional Instructions: Apply ice unaffected hematuria Follow-up with microelectronics engineer orthopedic physician in 2-3 days Return to ER if not getting better Scripts Hydrocodone/Apap 5-325 (NORCO 5-325 TABLET) 1 Each Tablet 1 TAB PO PRN Q6HRS PRN for PAIN, #20 TAB 0 Refills Prov: RUTHANN MOLINA MD 05/06/19 Problem Qualifiers Primary Impression: Distal radius fracture, left Encounter type: initial encounter Fracture type: closed Fracture morphology: unspecified fracture morphology Qualified Codes: S52.502A - Unspecified fracture of the lower end of left radius, initial encounter for closed fracture Additional Impressions: Fracture of styloid process of left ulna Encounter type: subsequent encounter Fracture type: closed Fracture alignment: nondisplaced Fracture healing: with routine healing Qualified Codes: S52.615D - Nondisplaced fracture of left ulna styloid process, subsequent encounter for closed fracture with routine healing Fall at home Encounter type: subsequent encounter Qualified Codes: W19.XXXD - Unspecified fall, subsequent encounter; Y92.009 - Unspecified place in unspecified non-institutional (private) residence as the place of occurrence of the external cause RUTHANN MOLINA MD May 06, 2019 15:26
--- NOTE | 2019-05-06 15:56 | RAD ---
WRIST 3V LEFT History: Left wrist pain. Technique: 3 views left wrist. Comparison: None. Findings: Nondisplaced distal left radial fracture. Mildly displaced ulnar styloid fracture. Otherwise, normal alignment. Moderate first carpometacarpal and triscaphe DJD. Impression: 1. Nondisplaced distal left radial fracture. 2. Mildly displaced ulnar styloid fracture. Electronically signed by: Dejan Adkins DO (05/06/2019 3:53 PM) [facility]
[2019-05-06] MEDS ORDERED: HYDR-3164 PO (16:48)
[2019-05-06 16:50] VITALS: BP 161/86
== END 2019-05-06 16:57 | disposition home or self-care (01) ==
LOC: ER 14:40
DX: S52.592A Other fractures of lower end of left radius, initial encounter for closed fracture (principal); S52.612A Displaced fracture of left ulna styloid process, initial encounter for closed fracture; F32.9 Major depressive disorder, single episode, unspecified; E78.00 Pure hypercholesterolemia, unspecified; Z90.89 Acquired absence of other organs; Z90.49 Acquired absence of other specified parts of digestive tract; Z91.040 Latex allergy status; Z90.710 Acquired absence of both cervix and uterus; W18.39XA Other fall on same level, initial encounter; Y93.89 Activity, other specified; Y92.003 Bedroom of unspecified non-institutional (private) residence as the place of occurrence of the external cause; Y99.8 Other external cause status
CPT/HCPCS: 29125; 73110; 96372; 99284; J3010

== ENCOUNTER 2019-05-19 15:32 | Emergency (ER) | payer MEDICARE ==
[~2019-05-19] VITALS: Ht 162.6 cm; Wt 127.0 kg
[~2019-05-19 15:32] MED LIST changes: +HYDR-3164 PO
--- NOTE | 2019-05-19 15:57 | PHYS DOC ---
Past Medical History Past Medical History: Anxiety, Depression, Diverticulitis, High Cholesterol Additional Past Medical Histor: Thyroid DZ,GI BLEED Past Surgical History: Appendectomy, Cholecystectomy, Hysterectomy Alcohol Use: None Drug Use: None Adult General Chief Complaint Chief Complaint: SYNCOPE HPI HPI Patient is a 69 year old female with history of depression, hypertension, high cholesterol, anxiety, who presents to the ED to be evaluated status post falling. Patient states she was shopping at [employer] going down the escalator, she states she got at the end of the escalator and on the transmission floor she fell down, patient herself denies any loss of consciousness. She states she hit her head on the floor. She states she was evaluated by [employer] employees and was able to answer in mentation questions and ambulate. She states she has slight pain to the back of her head, and slight pain on the left cottrell. Pain on touching the areas only. Denies being on any anticoagulants. Denies any neck pain. Denies any medial pain. Denies any hip pain. She states she was able to ambulate before then. She is in the ED with the son who states he is the caregiver for patient because of her mental illness. Review of Systems Review of Systems Constitutional: Denies fever or chills [] Eyes: Denies change in visual acuity, redness, or eye pain [] HENT: Denies nasal congestion or sore throat [] Respiratory: Denies cough or shortness of breath [] Cardiovascular: No additional information not addressed in HPI [] GI: Denies abdominal pain, nausea, vomiting, bloody stools or diarrhea [] : Denies dysuria or hematuria [] Musculoskeletal: Reports left cottrell pain. Denies back pain Integument: Denies rash or skin lesions [] Neurologic: Reports falling and hitting the back of her head. Denies headache, focal weakness or sensory changes [] All other systems were reviewed and found to be within normal limits, except as documented in this note. Allergies Allergies Allergies Coded Allergies Type Severity Reaction Last Updated Verified latex Allergy Intermediate 05/25/17 Yes Physical Exam Physical Exam Constitutional: Well developed, well nourished, no acute distress, non-toxic appearance. [] HENT: Normocephalic, atraumatic, bilateral external ears normal, oropharynx moist, no oral exudates, nose normal. [] Eyes: PERRLA, EOMI, conjunctiva normal, no discharge. [] Neck: Normal range of motion, no tenderness, supple, no stridor. [] Cardiovascular:Heart rate regular rhythm, no murmur [] Lungs & Thorax: Bilateral breath sounds clear to auscultation [] Abdomen: Bowel sounds normal, soft, no tenderness, no masses, no pulsatile masses. [] Skin: Warm, dry, no erythema, no rash. [] Back: No tenderness, no CVA tenderness. [] Extremities: No tenderness, no cyanosis, no clubbing, ROM intact, no edema. Bruising noted on the left cottrell. Neurologic: Alert and oriented X 3, normal motor function, normal sensory function, no focal deficits noted. Cranial nerves II through XII intact Psychologic: Affect normal, judgement normal, mood normal. Smells. Current Patient Data Vital Signs Vital Signs Date Time Temp Pulse Resp B/P (MAP) Pulse Ox O2 Delivery O2 Flow Rate FiO2 05/19/19 15:36 97.4 109 20 159/81 (107) 91 Room Air 97.4 Lab Values Laboratory Tests Test 05/19/19 15:40 05/19/19 16:10 05/19/19 16:48 Glucose (Fingerstick) 119 mg/dL (70-99) H White Blood Count 7.7 x10^3/uL (4.0-11.0) Red Blood Count 4.08 x10^6/uL (3.50-5.40) Hemoglobin 12.8 g/dL (12.0-15.5) Hematocrit 37.9 % (36.0-47.0) Mean Corpuscular Volume 93 fL (79-100) Mean Corpuscular Hemoglobin 31 pg (25-35) Mean Corpuscular Hemoglobin Concent 34 g/dL (31-37) Red Cell Distribution Width 15.6 % (11.5-14.5) H Platelet Count 390 x10^3/uL (140-400) Neutrophils (%) (Auto) 67 % (31-73) Lymphocytes (%) (Auto) 20 % (24-48) L Monocytes (%) (Auto) 10 % (0-9) H Eosinophils (%) (Auto) 3 % (0-3) Basophils (%) (Auto) 1 % (0-3) Neutrophils # (Auto) 5.2 x10^3/uL (1.8-7.7) Lymphocytes # (Auto) 1.6 x10^3/uL (1.0-4.8) Monocytes # (Auto) 0.7 x10^3/uL (0.0-1.1) Eosinophils # (Auto) 0.2 x10^3/uL (0.0-0.7) Basophils # (Auto) 0.1 x10^3/uL (0.0-0.2) Sodium Level 143 mmol/L (136-145) Potassium Level 4.2 mmol/L (3.5-5.1) Chloride Level 104 mmol/L (98-107) Carbon Dioxide Level 30 mmol/L (21-32) Anion Gap 9 (6-14) Blood Urea Nitrogen 23 mg/dL (7-20) H Creatinine 0.9 mg/dL (0.6-1.0) Estimated GFR (Cockcroft-Gault) 61.7 BUN/Creatinine Ratio 26 (6-20) H Glucose Level 141 mg/dL (70-99) H Calcium Level 9.5 mg/dL (8.5-10.1) Magnesium Level 1.9 mg/dL (1.8-2.4) Total Bilirubin 0.4 mg/dL (0.2-1.0) Aspartate Amino Transferase (AST) 14 U/L (15-37) L Alanine Aminotransferase (ALT) 20 U/L (14-59) Alkaline Phosphatase 154 U/L (46-116) H Creatine Kinase 74 U/L (26-192) Creatine Kinase MB (Mass) 0.7 ng/mL (0.0-3.6) Creatine Kinase MB Relative Index % (0-4) Troponin I Quantitative < 0.017 ng/mL (0.000-0.055) OL-Wbb-S-Type Natriuretic Peptide 36 pg/mL (0-124) Total Protein 7.0 g/dL (6.4-8.2) Albumin 3.7 g/dL (3.4-5.0) Albumin/Globulin Ratio 1.1 (1.0-1.7) Thyroid Stimulating Hormone (TSH) 4.167 uIU/mL (0.358-3.74) H Urine Color Yellow Urine Clarity Clear Urine pH 5.0 Urine Specific [place] >=1.030 Urine Protein Negative mg/dL (NEG-TRACE) Urine Glucose (UA) Negative mg/dL (NEG) Urine Ketones (Stick) Negative mg/dL (NEG) Urine Blood Negative (NEG) Urine Nitrite Negative (NEG) Urine Bilirubin Negative (NEG) Urine Urobilinogen Dipstick 1.0 mg/dL (0.2 mg/dL) Urine Leukocyte Esterase Negative (NEG) Urine RBC 0 /HPF (0-2) Urine WBC Occ /HPF (0-4) Urine Squamous Epithelial Cells Occ /LPF Urine Bacteria 0 /HPF (0-FEW) Urine Mucus Mod /LPF Urine Opiates Screen Pos (NEG) Urine Methadone Screen Neg (NEG) Urine Barbiturates Neg (NEG) Urine Phencyclidine Screen Neg (NEG) Urine Amphetamine/Methamphetamine Neg (NEG) Urine Benzodiazepines Screen Pos (NEG) Urine Cocaine Screen Neg (NEG) Urine Cannabinoids Screen Neg (NEG) Urine Ethyl Alcohol Neg (NEG) Laboratory Tests 05/19/19 16:10 Laboratory Tests 05/19/19 16:10 EKG EKG [address] Rucker sinus tachycardia, HR 107 no STEMI[] Radiology/Procedures Radiology/Procedures []PROCEDURE: CHEST AP ONLY EXAM: Chest, single view. HISTORY: Syncope. COMPARISON: None. FINDINGS: A frontal view of the chest is obtained. There is no infiltrate, pleural effusion or pneumothorax. There is suspected bilateral basilar atelectasis. There is cardiomegaly. IMPRESSION: No acute pulmonary finding. Electronically signed by: Vandana Hubbard MD (05/19/2019 4:16 PM) [facility] DICTATED and SIGNED BY: VANDANA HUBBARD MD DATE: 05/19/19 1616 PROCEDURE: CT HEAD WO CONTRAST EXAM: Head CT without contrast. HISTORY: Fall. Syncope. TECHNIQUE: Computed tomographic images of the head were obtained without contrast. *One or more of the following individualized dose reduction techniques were utilized for this examination: 1. Automated exposure control. 2. Adjustment of the mA and/or kV according to patient size. 3. Use of iterative reconstruction technique. COMPARISON: None. FINDINGS: There is no acute or subacute extra-axial or intraparenchymal hemorrhage. There is no mass effect or midline shift. There is no hydrocephalus. There are areas of decreased attenuation within the cerebral white matter, nonspecific and likely related to chronic small vessel disease. There are chronic appearing infarct within the bilateral basal ganglia. There is a suspected small chronic infarct within the right frontal lobe. There is cerebral volume loss. There is calcified atherosclerotic plaque within the distal vertebral and internal carotid arteries. There is evidence of lens surgery. The paranasal sinuses and mastoid air cells are clear. There is a small left macie bullosa. There is no suspicious calvarial lesion. IMPRESSION: 1. No acute intracranial finding. Note is made that MRI is more sensitive for acute infarction. 2. Scattered areas of hypodensity within the cerebral white matter, likely due to chronic small vessel disease. 3. Suspected chronic infarct within the bilateral basal ganglia. 4. Cerebral atrophy. Electronically signed by: Vandana Hubbard MD (05/19/2019 4:28 PM) [facility] DICTATED and SIGNED BY: VANDANA HUBBARD MD DATE: 05/19/19 1628 PROCEDURE: TIBIA FIBULA LEFT Two-view left tibia-fibula dated 05/19/2019. No comparison available. Clinical indication: Syncope. Pain after fall. FINDINGS: 2 views left tibia fibula show normal bony alignment. No displaced fracture. No acute osseous or articular abnormality. Mild degenerative change of the knee. There is diffuse soft tissue swelling. IMPRESSION: No acute bony abnormality. Electronically signed by: Naeem Holcomb MD (05/19/2019 4:16 PM) [facility] DICTATED and SIGNED BY: NAEEM HOLCOMB MD DATE: 05/19/19 1616 Course & Med Decision Making Course & Med Decision Making Pertinent Labs and Imaging studies reviewed. (See chart for details) This is a 69-year-old female patient who presents to the ED today for evaluation status post falling. Patient was shopping at [employer], she went down the escalator when she got on the transmission floor she fell hitting her head on the floor. No loss of consciousness. Complaining of posterior head pain and left cottrell pain. Labs are negative, CT of the head, tib-fib x-rays, chest x-ray negative for any acute findings. Patient is up and ambulating. Discharged to home. Follow-up with the PCP in 1-2 weeks. Dragon Disclaimer Dragon Disclaimer This electronic medical record was generated, in whole or in part, using a voice recognition dictation system. Departure Departure Impression: Primary Impression: Fall from standing Additional Impressions: Closed head injury Contusion of left lower extremity Disposition: HOME, SELF-CARE Condition: STABLE Referrals: MO REED MD (PCP) follow up in one week Patient Instructions: Contusion, [id number], Fall Prevention and Home Safety Additional Instructions: You were evaluated after falling, your workup in the emergency room is negative for any acute findings. Follow-up with your doctor in 1-2 weeks. Try to ice and elevate the affected areas. Problem Qualifiers Primary Impression: Fall from standing Encounter type: initial encounter Qualified Codes: W19.XXXA - Unspecified fall, initial encounter Additional Impressions: Closed head injury Encounter type: initial encounter Qualified Codes: S09.90XA - Unspecified injury of head, initial encounter Contusion of left lower extremity Encounter type: initial encounter Qualified Codes: S80.12XA - Contusion of left lower leg, initial encounter ADELINA ELLIOTT APRN May 19, 2019 15:57
--- NOTE | 2019-05-19 16:05 | EKG ---
[facility] [address] [place] [address] Test Date: 2019-05-19 Test Time: 15:40:58 Pat Name: NATHAN BAIN Department: Room: Gender: F [employer]: : 1950 Requested By: ADELINA ELLIOTT Order Number: [id number] Reading MD: Albert Guaman MD Measurements Intervals [place] Rate: 106 P: 35 MD: 160 QRS: 19 QRSD: 76 T: 51 QT: 332 QTc: 448 Interpretive Statements SINUS TACHYCARDIA Electronically Signed On 05-30-2019 10:13:15 CDT by Albert Guaman MD
--- NOTE | 2019-05-19 16:19 | RAD ---
EXAM: Chest, single view. HISTORY: Syncope. COMPARISON: None. FINDINGS: A frontal view of the chest is obtained. There is no infiltrate, pleural effusion or pneumothorax. There is suspected bilateral basilar atelectasis. There is cardiomegaly. IMPRESSION: No acute pulmonary finding. Electronically signed by: Vandana Johnston MD (05/19/2019 4:16 PM) [facility]
--- NOTE | 2019-05-19 16:19 | RAD ---
Two-view left tibia-fibula dated 05/19/2019. No comparison available. Clinical indication: Syncope. Pain after fall. FINDINGS: 2 views left tibia fibula show normal bony alignment. No displaced fracture. No acute osseous or articular abnormality. Mild degenerative change of the knee. There is diffuse soft tissue swelling. IMPRESSION: No acute bony abnormality. Electronically signed by: Naeem Holcomb MD (05/19/2019 4:16 PM) [facility]
[2019-05-19 16:26] LABS: BASO # 0.1 x10^3/uL (0.0-0.2); BASO % 1 % (0-3); EOS # 0.2 x10^3/uL (0.0-0.7); EOS % 3 % (0-3); HEMATOCRIT 37.9 % (36.0-47.0); HEMOGLOBIN 12.8 g/dL (12.0-15.5); LYMPH # 1.6 x10^3/uL (1.0-4.8); LYMPH % 20 % (24-48); MEAN CORPUSCULAR HEMOGLOBIN 31 pg (25-35); MEAN CORPUSCULAR HGB CONC 34 g/dL (31-37); MEAN CORPUSCULAR VOLUME 93 fL (79-100); MONO # 0.7 x10^3/uL (0.0-1.1); MONO % 10 % (0-9); NEUT # 5.2 x10^3/uL (1.8-7.7); NEUT % 67 % (31-73); PLATELET COUNT 390 x10^3/uL (140-400); RED BLOOD COUNT 4.08 x10^6/uL (3.50-5.40); RED CELL DISTRIBUTION WIDTH 15.6 % (11.5-14.5); WHITE BLOOD COUNT 7.7 x10^3/uL (4.0-11.0)
--- NOTE | 2019-05-19 16:31 | RAD ---
EXAM: Head CT without contrast. HISTORY: Fall. Syncope. TECHNIQUE: Computed tomographic images of the head were obtained without contrast. *One or more of the following individualized dose reduction techniques were utilized for this examination: 1. Automated exposure control. 2. Adjustment of the mA and/or kV according to patient size. 3. Use of iterative reconstruction technique. COMPARISON: None. FINDINGS: There is no acute or subacute extra-axial or intraparenchymal hemorrhage. There is no mass effect or midline shift. There is no hydrocephalus. There are areas of decreased attenuation within the cerebral white matter, nonspecific and likely related to chronic small vessel disease. There are chronic appearing infarct within the bilateral basal ganglia. There is a suspected small chronic infarct within the right frontal lobe. There is cerebral volume loss. There is calcified atherosclerotic plaque within the distal vertebral and internal carotid arteries. There is evidence of lens surgery. The paranasal sinuses and mastoid air cells are clear. There is a small left macie bullosa. There is no suspicious calvarial lesion. IMPRESSION: 1. No acute intracranial finding. Note is made that MRI is more sensitive for acute infarction. 2. Scattered areas of hypodensity within the cerebral white matter, likely due to chronic small vessel disease. 3. Suspected chronic infarct within the bilateral basal ganglia. 4. Cerebral atrophy. Electronically signed by: Vandana Johnston MD (05/19/2019 4:28 PM) [facility]
[2019-05-19 16:34] LABS: CALCIUM 9.5 mg/dL (8.5-10.1); CREATININE 0.9 mg/dL (0.6-1.0); GFR 61.7; POTASSIUM 4.2 mmol/L (3.5-5.1)
[2019-05-19 16:40] LABS: ALBUMIN 3.7 g/dL (3.4-5.0); ALBUMIN/GLOBULIN RATIO 1.1 (1.0-1.7); MAGNESIUM 1.9 mg/dL (1.8-2.4); TOTAL BILIRUBIN 0.4 mg/dL (0.2-1.0)
[2019-05-19 16:47] LABS: CREATINE KINASE 74 U/L (26-192)
[2019-05-19 17:04] LABS: BILIRUBIN,URINE NEGATIVE (NEG); CLARITY,URINE CLEAR; COLOR,URINE YELLOW; NITRITE,URINE NEGATIVE (NEG); PROTEIN,URINE NEGATIVE (NEG-TRACE)
[2019-05-19 17:09] LABS: BARBITURATES NEG (NEG); BENZODIAZEPINES POS (NEG); CANNABINOIDS NEG (NEG); COCAINE NEG (NEG); METHADONE NEG (NEG); OPIATES POS (NEG); PHENCYCLIDINE NEG (NEG)
[2019-05-19 17:10] LABS: AMPHETAMINE/METHAMPHETAMINE NEG (NEG)
[2019-05-19 17:16] LABS: BACTERIA,URINE 0 /HPF (0-FEW); RBC,URINE 0 /HPF (0-2); SQUAMOUS EPITHELIAL CELL,UR OCC /LPF; WBC,URINE OCC /HPF (0-4)
[2019-05-19 18:18] VITALS: BP 172/90
== END 2019-05-19 18:35 | disposition home or self-care (01) ==
LOC: ER 15:32
DX: S80.12XA Contusion of left lower leg, initial encounter (principal); S09.8XXA Other specified injuries of head, initial encounter; F41.9 Anxiety disorder, unspecified; F32.9 Major depressive disorder, single episode, unspecified; E78.00 Pure hypercholesterolemia, unspecified; Z90.89 Acquired absence of other organs; Z90.49 Acquired absence of other specified parts of digestive tract; Z90.710 Acquired absence of both cervix and uterus; Z91.040 Latex allergy status; W10.0XXA Fall (on)(from) escalator, initial encounter; Y93.89 Activity, other specified; Y92.59 Other trade areas as the place of occurrence of the external cause; Y99.8 Other external cause status
CPT/HCPCS: 36415; 70450; 71045; 73590; 80053; 80307; 81001; 82553; 82962; 83735; 83880; 84443; 84484; 85025; 93005; 99285-25

== ENCOUNTER 2020-03-28 17:07 | Emergency (ER) | payer MEDICARE ==
[~2020-03-28] VITALS: Ht 162.6 cm; Wt 127.0 kg
[~2020-03-28 17:07] MED LIST changes: -LEVO88TA2 PO; +LEVO88TA70 PO
[2020-03-28] MEDS ORDERED: MECLIZINE HCL 12.5 MG TABLET. PO ONE (17:45)
[2020-03-28] MEDS ORDERED: ACETAMINOPHEN 500 MG TABLET PO ONE (17:45)
--- NOTE | 2020-03-28 17:45 | RAD ---
EXAM: PORTABLE CHEST 1V, ELBOW LEFT 3V, KNEE LEFT 4V INDICATION: Reason: fall dizziness / Spl. Instructions: / History: . TECHNIQUE: Single view COMPARISON: 05/19/2019 chest x-ray FINDINGS: The heart size is mildly enlarged. The great vessels appear unremarkable. There is no hilar or mediastinal mass. The lungs are clear. There is no pleural effusion or pneumothorax. There are no significant osseous abnormalities. IMPRESSION: Stable mild cardiomegaly with no active cardiopulmonary disease. PROCEDURE: PORTABLE CHEST 1V, ELBOW LEFT 3V, KNEE LEFT 4V CLINICAL INDICATION / HISTORY: Reason: fall dizziness / Spl. Instructions: / History: . TECHNIQUE: Left Elbow 2 views COMPARISON: None FINDINGS: Two views of the left elbow demonstrate no evidence of fracture, subluxation, or dislocation. Soft tissues unremarkable. IMPRESSION: No acute osseous abnormality. PROCEDURE: PORTABLE CHEST 1V, ELBOW LEFT 3V, KNEE LEFT 4V CLINICAL INDICATION / HISTORY: Reason: fall dizziness / Spl. Instructions: / History: . TECHNIQUE: AP, lateral, and oblique views of the left knee. COMPARISON: None FINDINGS: The osseous structures are intact. The articular surfaces show minimal articular surface irregularity in the medial aspect of the patellofemoral compartment. The joint space is maintained. No intra-articular loose bodies. The alignment is within normal limits. The soft tissues are unremarkable. No obvious joint effusion. No radio-opaque foreign bodies are identified. IMPRESSION: No fracture or dislocation is identified. Mild patellofemoral compartment degenerative change Electronically signed by: Taryn Chowdhury MD (03/28/2020 5:42 PM) [id number]
[2020-03-28] MEDS: MORPHINE SULFATE 2 MG/ML VIAL. IV/SQ PRN ×2 (17:47→19:21)
[2020-03-28 17:56] LABS: BASO # 0.1 x10^3/uL (0.0-0.2); BASO % 1 % (0-3); EOS # 0.1 x10^3/uL (0.0-0.7); EOS % 1 % (0-3); HEMATOCRIT 40.8 % (36.0-47.0); HEMOGLOBIN 13.5 g/dL (12.0-15.5); LYMPH # 1.1 x10^3/uL (1.0-4.8); LYMPH % 12 % (24-48); MEAN CORPUSCULAR HEMOGLOBIN 30 pg (25-35); MEAN CORPUSCULAR HGB CONC 33 g/dL (31-37); MEAN CORPUSCULAR VOLUME 90 fL (79-100); MONO # 0.6 x10^3/uL (0.0-1.1); MONO % 7 % (0-9); NEUT # 7.4 x10^3/uL (1.8-7.7); NEUT % 79 % (31-73); PLATELET COUNT 371 x10^3/uL (140-400); RED BLOOD COUNT 4.54 x10^6/uL (3.50-5.40); RED CELL DISTRIBUTION WIDTH 15.2 % (11.5-14.5); WHITE BLOOD COUNT 9.3 x10^3/uL (4.0-11.0)
[2020-03-28 18:05] LABS: PROTHROMBIN TIME PATIENT 12.6 SEC (11.7-14.0)
--- NOTE | 2020-03-28 18:06 | RAD ---
Exam: CT head INDICATION: Dizziness, fall TECHNIQUE: Sequential axial images through the head were obtained without the administration of IV contrast. Comparisons: 05/19/2019 FINDINGS: No focal parenchymal lesion or hemorrhage is identified. There is no midline shift or sulcal effacement. No acute vascular territory infarction is identified. Dobson-white distinction is preserved. The ventricular system is within normal limits without compression hydrocephalus. The basal cisterns are well maintained. The visualized portions of the paranasal sinuses and mastoid air cells are well-pneumatized. No acute fractures. IMPRESSION: No acute intracranial abnormality. Exposure: One or more of the following in the visualized dose reduction techniques were utilized for this examination: 1. Automated exposure control 2. Adjustment of the MA and/or KV according to patient size Use of iterative of reconstructive technique Electronically signed by: Grant Garner MD (03/28/2020 6:03 PM) [id number]
[2020-03-28 18:10] LABS: CALCIUM 9.1 mg/dL (8.5-10.1); CREATININE 0.9 mg/dL (0.6-1.0); GFR 61.7; POTASSIUM 3.4 mmol/L (3.5-5.1)
[2020-03-28 18:15] LABS: ALBUMIN 3.3 g/dL (3.4-5.0); ALBUMIN/GLOBULIN RATIO 0.8 (1.0-1.7); MAGNESIUM 1.9 mg/dL (1.8-2.4); TOTAL BILIRUBIN 0.4 mg/dL (0.2-1.0); TOTAL PROTEIN 7.4 g/dL (6.4-8.2)
[2020-03-28 18:23] LABS: CREATINE KINASE 63 U/L (26-192)
[2020-03-28] MEDS ORDERED: ONDANSETRON PF 4 MG/2 ML VIAL. IVP ONE (18:45)
[2020-03-28 19:40] LABS: BILIRUBIN,URINE SMALL (NEG); CLARITY,URINE CLOUDY; COLOR,URINE YELLOW; NITRITE,URINE NEGATIVE (NEG); PH,URINE 5.5 (<5.0-8.0); PROTEIN,URINE NEGATIVE (NEG-TRACE)
[2020-03-28 19:44] LABS: BACTERIA,URINE FEW /HPF (0-FEW); SQUAMOUS EPITHELIAL CELL,UR MOD /LPF
[2020-03-28 19:47] LABS: AMPHETAMINE/METHAMPHETAMINE NEG (NEG); BARBITURATES NEG (NEG); BENZODIAZEPINES POS (NEG); CANNABINOIDS NEG (NEG); COCAINE NEG (NEG); METHADONE NEG (NEG); OPIATES POS (NEG); PHENCYCLIDINE NEG (NEG)
--- NOTE | 2020-03-28 19:51 | PHYS DOC ---
Past Medical History Past Medical History: Anxiety, Depression, Diverticulitis, GI Bleed, High Cholesterol, Other Additional Past Medical Histor: Thyroid DZ Past Surgical History: Cholecystectomy, Hysterectomy, Tonsillectomy Smoking Status: Never Smoker Alcohol Use: None Drug Use: None General Adult EDM: Chief Complaint: MECHANICAL FALL HPI: HPI: Patient is a 69 year old female with a history of depression, high cholesterol, anxiety, who presents the ED today to be evaluated status post falling. Patient reports going to her basement to check on her laundry, she states she bent over to seed cone picker a pair socks that was on the floor, she states she became dizzy and fell. Denies hitting her head on the ground on anything. She is complaining of left elbow pain and left knee pain. She rates the pain as mild and intermittent worse on touching the regions. Denies anything specifically relieving the pain. Denies any neck pain. Denies any mid or low back pain. She states she is considering getting into a house with no basement. Review of Systems: Review of Systems: Constitutional: Denies fever or chills. [] Eyes: Denies change in visual acuity. [] HENT: Denies nasal congestion or sore throat. [] Respiratory: Denies cough or shortness of breath. [] Cardiovascular: Denies chest pain or edema. [] GI: Denies abdominal pain, nausea, vomiting, bloody stools or diarrhea. [] : Denies dysuria. [] Musculoskeletal: Reports left elbow and left knee pain. Denies back pain Integument: Denies rash. [] Neurologic: Reports dizziness. Denies headache, focal weakness or sensory changes. [] Psychiatric: Denies depression or anxiety. [] Heart Score: Risk Factors: Risk Factors: DM, Current or recent (<one month) smoker, HTN, HLP, family history of CAD, obesity. Risk Scores: Score 0 - 3: 2.5% MACE over next 6 weeks - Discharge Home Score 4 - 6: 20.3% MACE over next 6 weeks - Admit for Clinical Observation Score 7 - 10: 72.7% MACE over next 6 weeks - Early Invasive Strategies Current Medications: Current Medications Medications (Trade) Dose Ordered Sig/Tatiana Start Time Stop Time Status Last Admin Dose Admin Acetaminophen (Tylenol) 500 mg 1X ONCE 03/28/20 17:45 03/28/20 17:46 DC 03/28/20 17:43 500 MG Meclizine HCl (Antivert) 12.5 mg 1X ONCE 03/28/20 17:45 03/28/20 17:46 DC 03/28/20 17:43 12.5 MG Morphine Sulfate (Morphine Sulfate) 2 mg PRN Q15MIN PRN 03/28/20 17:15 03/29/20 17:14 03/28/20 19:21 2 MG Ondansetron HCl (Zofran) 4 mg 1X ONCE 03/28/20 18:45 03/28/20 18:46 DC 03/28/20 19:20 4 MG Allergies: Allergies: Allergies Coded Allergies Type Severity Reaction Last Updated Verified latex Allergy Intermediate 05/25/17 Yes Physical Exam: PE: Constitutional: Well developed, well nourished, no acute distress, non-toxic hema earance. [] HENT: Normocephalic, atraumatic, bilateral external ears normal, oropharynx moist, no oral exudates, nose normal. [] Eyes: PERRLA, EOMI, conjunctiva normal, no discharge. [] Neck: Normal range of motion, no tenderness, supple, no stridor. [] Cardiovascular:Heart rate regular rhythm, no murmur [] Lungs & Thorax: Bilateral breath sounds clear to auscultation [] Abdomen: Bowel sounds normal, soft, no tenderness, no masses, no pulsatile masses. [] Skin: Warm, dry, no erythema, no rash. [] Back: No tenderness, no CVA tenderness. [] Extremities: Bruising noted on the left anterior knee as well as left elbow. Mild tenderness on the anterior left knee with negative Francisco sign, negative anterior posterior drawer sign, no cyanosis, no clubbing, ROM intact, no edema. [] Left elbow with bruising on the olecranon process. Slight tenderness to the region. Full range of motion to the left elbow as well as left forearm including plantarflexion and dorsiflexion of the left forearm. Adequate radial, medial, ulnar sensation to the left upper extremity. +2 left radial pulse. Cap refill less than 2 seconds to left fingers. Neurologic: Alert and oriented X 3, normal motor function, normal sensory function, no focal deficits noted. [] Psychologic: Affect normal, judgement normal, mood normal. [] Current Patient Data: Labs: Laboratory Tests Test 03/28/20 17:49 03/28/20 19:30 White Blood Count 9.3 x10^3/uL (4.0-11.0) Red Blood Count 4.54 x10^6/uL (3.50-5.40) Hemoglobin 13.5 g/dL (12.0-15.5) Hematocrit 40.8 % (36.0-47.0) Mean Corpuscular Volume 90 fL (79-100) Mean Corpuscular Hemoglobin 30 pg (25-35) Mean Corpuscular Hemoglobin Concent 33 g/dL (31-37) Red Cell Distribution Width 15.2 % (11.5-14.5) H Platelet Count 371 x10^3/uL (140-400) Neutrophils (%) (Auto) 79 % (31-73) H Lymphocytes (%) (Auto) 12 % (24-48) L Monocytes (%) (Auto) 7 % (0-9) Eosinophils (%) (Auto) 1 % (0-3) Basophils (%) (Auto) 1 % (0-3) Neutrophils # (Auto) 7.4 x10^3/uL (1.8-7.7) Lymphocytes # (Auto) 1.1 x10^3/uL (1.0-4.8) Monocytes # (Auto) 0.6 x10^3/uL (0.0-1.1) Eosinophils # (Auto) 0.1 x10^3/uL (0.0-0.7) Basophils # (Auto) 0.1 x10^3/uL (0.0-0.2) Prothrombin Time 12.6 SEC (11.7-14.0) Prothrombin Time INR 1.0 (0.8-1.1) Sodium Level 141 mmol/L (136-145) Potassium Level 3.4 mmol/L (3.5-5.1) L Chloride Level 103 mmol/L (98-107) Carbon Dioxide Level 32 mmol/L (21-32) Anion Gap 6 (6-14) Blood Urea Nitrogen 19 mg/dL (7-20) Creatinine 0.9 mg/dL (0.6-1.0) Estimated GFR (Cockcroft-Gault) 61.7 BUN/Creatinine Ratio 21 (6-20) H Glucose Level 134 mg/dL (70-99) H Calcium Level 9.1 mg/dL (8.5-10.1) Magnesium Level 1.9 mg/dL (1.8-2.4) Total Bilirubin 0.4 mg/dL (0.2-1.0) Aspartate Amino Transferase (AST) 19 U/L (15-37) Alanine Aminotransferase (ALT) 35 U/L (14-59) Alkaline Phosphatase 170 U/L (46-116) H Creatine Kinase 63 U/L (26-192) Creatine Kinase MB (Mass) 0.5 ng/mL (0.0-3.6) Creatine Kinase MB Relative Index % (0-4) Troponin I Quantitative < 0.017 ng/mL (0.000-0.055) GK-Ywz-Q-Type Natriuretic Peptide 88 pg/mL (0-124) Total Protein 7.4 g/dL (6.4-8.2) Albumin 3.3 g/dL (3.4-5.0) L Albumin/Globulin Ratio 0.8 (1.0-1.7) L Urine Collection Type Unknown Urine Color Yellow Urine Clarity Cloudy Urine pH 5.5 (<5.0-8.0) Urine Specific Gillett 1.025 (1.000-1.030) Urine Protein Negative mg/dL (NEG-TRACE) Urine Glucose (UA) Negative mg/dL (NEG) Urine Ketones (Stick) Negative mg/dL (NEG) Urine Blood Negative (NEG) Urine Nitrite Negative (NEG) Urine Bilirubin Small (NEG) Urine Urobilinogen Dipstick 1.0 mg/dL (0.2 mg/dL) Urine Leukocyte Esterase Negative (NEG) Urine RBC 3-5 /HPF (0-2) Urine WBC 1-4 /HPF (0-4) Urine Squamous Epithelial Cells Mod /LPF Urine Bacteria Few /HPF (0-FEW) Urine Mucus Marked /LPF Urine Opiates Screen Pos (NEG) Urine Methadone Screen Neg (NEG) Urine Barbiturates Neg (NEG) Urine Phencyclidine Screen Neg (NEG) Urine Amphetamine/Methamphetamine Neg (NEG) Urine Benzodiazepines Screen Pos (NEG) Urine Cocaine Screen Neg (NEG) Urine Cannabinoids Screen Neg (NEG) Urine Ethyl Alcohol Neg (NEG) Laboratory Tests 03/28/20 17:49 Laboratory Tests 03/28/20 17:49 Vital Signs: Vital Signs Date Time Temp Pulse Resp B/P (MAP) Pulse Ox O2 Delivery O2 Flow Rate FiO2 03/28/20 17:47 20 94 Room Air 03/28/20 17:09 98.4 109 164/77 (106) 98.4 EKG: EKG: [] Radiology/Procedures: Radiology/Procedures: []PROCEDURE: PORTABLE CHEST 1V EXAM: PORTABLE CHEST 1V, ELBOW LEFT 3V, KNEE LEFT 4V INDICATION: Reason: fall dizziness / Spl. Instructions: / History: . TECHNIQUE: Single view COMPARISON: 05/19/2019 chest x-ray FINDINGS: The heart size is mildly enlarged. The great vessels appear unremarkable. There is no hilar or mediastinal mass. The lungs are clear. There is no pleural effusion or pneumothorax. There are no significant osseous abnormalities. IMPRESSION: Stable mild cardiomegaly with no active cardiopulmonary disease. PROCEDURE: PORTABLE CHEST 1V, ELBOW LEFT 3V, KNEE LEFT 4V CLINICAL INDICATION / HISTORY: Reason: fall dizziness / Spl. Instructions: / History: . TECHNIQUE: Left Elbow 2 views COMPARISON: None FINDINGS: Two views of the left elbow demonstrate no evidence of fracture, subluxation, or dislocation. Soft tissues unremarkable. IMPRESSION: No acute osseous abnormality. PROCEDURE: PORTABLE CHEST 1V, ELBOW LEFT 3V, KNEE LEFT 4V CLINICAL INDICATION / HISTORY: Reason: fall dizziness / Spl. Instructions: / History: . TECHNIQUE: AP, lateral, and oblique views of the left knee. COMPARISON: None FINDINGS: The osseous structures are intact. The articular surfaces show minimal articular surface irregularity in the medial aspect of the patellofemoral compartment. The joint space is maintained. No intra-articular loose bodies. The alignment is within normal limits. The soft tissues are unremarkable. No obvious joint effusion. No radio-opaque foreign bodies are identified. IMPRESSION: No fracture or dislocation is identified. Mild patellofemoral compartment degenerative change Electronically signed by: Arcadio Chowdhury MD (03/28/2020 5:42 PM) [id number] DICTATED and SIGNED BY: ARCADIO CHOWDHURY MD DATE: 03/28/20 1742 PROCEDURE: CT HEAD WO CONTRAST Exam: CT head INDICATION: Dizziness, fall TECHNIQUE: Sequential axial images through the head were obtained without the administration of IV contrast. Comparisons: 05/19/2019 FINDINGS: No focal parenchymal lesion or hemorrhage is identified. There is no midline shift or sulcal effacement. No acute vascular territory infarction is identified. Dobson-white distinction is preserved. The ventricular system is within normal limits without compression hydrocephalus. The basal cisterns are well maintained. The visualized portions of the paranasal sinuses and mastoid air cells are well-pneumatized. No acute fractures. IMPRESSION: No acute intracranial abnormality. Exposure: One or more of the following in the visualized dose reduction techniques were utilized for this examination: 1. Automated exposure control 2. Adjustment of the MA and/or KV according to patient size Use of iterative of reconstructive technique Electronically signed by: Grant Lopez MD (03/28/2020 6:03 PM) [id number] DICTATED and SIGNED BY: GRANT LOPEZ MD DATE: 03/28/201802 Course & Med Decision Making: Course & Med Decision Making Pertinent Labs and Imaging studies reviewed. (See chart for details) This is a 69-year-old female patient presented to the ED today to be evaluated for left elbow pain and left knee pain status post falling, patient was bending to pick pale socks on the ground, became dizzy then fell. No loss of consciousness. CT of the head is negative. Lab work is negative for any acute findings, x-rays of the elbow and left knee are negative. Discharge to home. Return precautions provided. Dragon Disclaimer: Dragon Disclaimer: This electronic medical record was generated, in whole or in part, using a voice recognition dictation system. Departure Departure Impression: Primary Impression: Fall from standing Qualified Codes: W19.XXXA - Unspecified fall, initial encounter Additional Impressions: Contusion of left knee Qualified Codes: S80.02XA - Contusion of left knee, initial encounter Left elbow contusion Qualified Codes: S50.02XA - Contusion of left elbow, initial encounter Disposition: 01 HOME, SELF-CARE Condition: STABLE Referrals: MO REED MD (PCP) follow up in 1 week Patient Instructions: Contusion, [id number], Fall Prevention and Home Safety, Ogop-hi-Nzzl Additional Instructions: You were evaluated in the emergency room after falling. Please consider moving your washer and dryer to the main level and avoid going to the basement by yourself. Try to ice and elevate the affected regions. You can take Tylenol as needed for pain. Follow-up with your doctor in 1 to 2 weeks. Justicifation of Admission Dx: Justifications for Admission: Justification of Admission Dx: N/A ADELINA ELLIOTT APRN Mar 28, 2020 19:51
[2020-03-28 20:00] VITALS: BP 128/78
--- NOTE | 2020-03-29 10:01 | EKG ---
[facility] [address] [place] [address] Test Date: 2020-03-28 Test Time: 17:22:37 Pat Name: NATHAN BAIN Department: Room: Gender: F [employer]: : 1950 Requested By: ADELINA ELLIOTT Order Number: [id number] Reading MD: Measurements Intervals [place] Rate: 104 P: 16 [place]: 156 QRS: 10 QRSD: 78 T: 52 QT: 332 QTc: 437 Interpretive Statements SINUS TACHYCARDIA QRS(T) CONTOUR ABNORMALITY CONSIDER INFERIOR INFARCT POSSIBLY ABNORMAL ECG RI6.01 No previous ECG available for comparison
== END 2020-03-28 20:38 | disposition home or self-care (01) ==
LOC: ER 17:07
DX: S80.02XA Contusion of left knee, initial encounter (principal); S50.02XA Contusion of left elbow, initial encounter; R42 Dizziness and giddiness; E78.00 Pure hypercholesterolemia, unspecified; I51.7 Cardiomegaly; R00.0 Tachycardia, unspecified; Z91.040 Latex allergy status; W18.39XA Other fall on same level, initial encounter; Y93.89 Activity, other specified; Y92.89 Other specified places as the place of occurrence of the external cause; Y99.8 Other external cause status
CPT/HCPCS: 36415; 70450; 71045; 73080; 73564; 80053; 80307; 81001; 82553; 83735; 83880; 84484; 85025; 85610; 93005; 96374; 96375; 96376; 99285; J2270; J2405; J8597

== ENCOUNTER 2020-04-18 21:32 | Inpatient (IN) | payer MEDICARE ==
[~2020-04-18] VITALS: Ht 162.6 cm; Wt 120.0 kg
--- NOTE | 2020-04-18 21:58 | PHYS DOC ---
Past Medical History Past Medical History: Anxiety, Depression, Diverticulitis, GI Bleed, High Cholesterol, Other Additional Past Medical Histor: Thyroid DZ (ADELINA ELLIOTT APRN) Past Surgical History: Cholecystectomy, Hysterectomy, Tonsillectomy (ADELINA ELLIOTT APRN) Smoking Status: Never Smoker Alcohol Use: None Drug Use: None (ADELINA ELLIOTT APRN) General Adult EDM: Chief Complaint: FLANK PAIN HPI: HPI: Patient is a 69 year old female with a history of high cholesterol, anxiety, depression, who presents to the ED today complaining of 10 out of 10 left flank pain described as sharp and intermittent, symptoms began yesterday and she feels it is gotten worse today. Patient states symptoms are worse on palpation of the left flank region. Denies anything alleviating the symptoms. Denies any injury. Denies any chest pain or shortness of breath. (ADELINA ELLIOTT APRN) Review of Systems: Review of Systems: Constitutional: Denies fever or chills. [] Eyes: Denies change in visual acuity. [] HENT: Denies nasal congestion or sore throat. [] Respiratory: Denies cough or shortness of breath. [] Cardiovascular: Denies chest pain or edema. [] GI: Denies abdominal pain, nausea, vomiting, bloody stools or diarrhea. [] : Reports left flank pain. Denies dysuria. [] Musculoskeletal: Denies back pain or joint pain. [] Integument: Denies rash. [] Neurologic: Denies headache, focal weakness or sensory changes. [] Endocrine: Denies polyuria or polydipsia. [] Lymphatic: Denies swollen glands. [] Psychiatric: Denies depression or anxiety. [] (ADELINA ELLIOTT APRN) Heart Score: Risk Factors: Risk Factors: DM, Current or recent (<one month) smoker, HTN, HLP, family history of CAD, obesity. Risk Scores: Score 0 - 3: 2.5% MACE over next 6 weeks - Discharge Home Score 4 - 6: 20.3% MACE over next 6 weeks - Admit for Clinical Observation Score 7 - 10: 72.7% MACE over next 6 weeks - Early Invasive Strategies (ADELINA ELLIOTT APRN) Current Medications: Current Medications Medications (Trade) Dose Ordered Sig/Tatiana Start Time Stop Time Status Last Admin Dose Admin Morphine Sulfate (Morphine Sulfate) 5 mg 1X ONCE 04/18/20 22:30 04/18/20 22:31 Ondansetron HCl (Zofran) 4 mg 1X ONCE 04/18/20 22:30 04/18/20 22:31 Sodium Chloride 1,000 ml @ 1,000 mls/hr 1X ONCE 04/18/20 22:30 04/18/20 23:29 (ADELINA ELLIOTT APRN) Allergies: Allergies: Allergies Coded Allergies Type Severity Reaction Last Updated Verified latex Allergy Intermediate 05/25/17 Yes (ADELINA ELLIOTT APRN) Physical Exam: PE: Constitutional: Well developed, well nourished, no acute distress, non-toxic appearance. [] HENT: Normocephalic, atraumatic, bilateral external ears normal, oropharynx moist, no oral exudates, nose normal. [] Eyes: PERRLA, EOMI, conjunctiva normal, no discharge. [] Neck: Normal range of motion, no tenderness, supple, no stridor. [] Cardiovascular:Heart rate regular rhythm, no murmur [] Lungs & Thorax: Bilateral breath sounds clear to auscultation [] Abdomen: Bowel sounds normal, soft, no tenderness, no masses, no pulsatile masses. [] Skin: Warm, dry, no erythema, no rash. [] Back: No tenderness, no CVA tenderness. [] Extremities: No tenderness, no cyanosis, no clubbing, ROM intact, no edema. [] Neurologic: Alert and oriented X 3, normal motor function, normal sensory function, no focal deficits noted. [] Psychologic: Flat affect, tearful (ADELINA ELLIOTT APRN) PE: Abdomen soft with mild lower quadrant left tenderness without guarding or rebound, dorsiflexion to the bilateral toes intact, sensation intact, no saddle anesthesia (MICHEAL SHRESTHA MD) EKG: EKG: [] (ADELINA ELLIOTT APRN) Radiology/Procedures: Radiology/Procedures: []PROCEDURE: CT ABDOMEN PELVIS WO CONTRAST Exam: CT of abdomen and pelvis without contrast INDICATION: Right flank pain TECHNIQUE: Sequential axial images through the abdomen and pelvis obtained without IV contrast. Sagittal and coronal reformatted images were reconstructed from the axial data and reviewed. Comparisons: None FINDINGS: Heart size is normal. No pericardial effusion. Visualized lung bases are clear. No pleural effusion. Evaluation of the solid organs is limited secondary to noncontrast technique. Liver, spleen, pancreas and adrenals are unremarkable. Gallbladder surgically absent. No perinephric inflammation or hydronephrosis. No renal or ureteral calculi are identified. Bladder is decompressed not well evaluated. Uterus is absent. No abnormal adnexal mass. There is extensive diverticulosis seen in the descending and sigmoid colon without evidence of acute diverticulitis. Remainder of the large and small bowel are unremarkable. No free intra-abdominal air or fluid. Abdominal aorta has a normal course and caliber. No enlarged intra-abdominal lymph nodes are identified. No suspicious osseous lesions or acute fractures. IMPRESSION: 1. No renal or ureteral calculi. No evidence for obstructive uropathy. 2. Extensive diverticulosis particularly at the sigmoid colon With questionable mild adjacent wall thickening. Findings may relate to a mild diverticulitis. Exposure: One or more of the following in the visualized dose reduction techniques were utilized for this examination: 1. Automated exposure control 2. Adjustment of the MA and/or KV according to patient size 3. Use of iterative of reconstructive technique Electronically signed by: Grant Lopez MD (04/18/2020 10:35 PM) [id number] DICTATED and SIGNED BY: GRANT LOPEZ MD DATE: 04/18/202234 (ADELINA ELLIOTT APRN) Course & Med Decision Making: Course & Med Decision Making Pertinent Labs and Imaging studies reviewed. (See chart for details) This is a 69-year-old female patient presenting to the ED today with left flank pain since yesterday. CBC with a WBC of 11.4, CMP with nothing really acute. UA pending. CT of the abdomen and pelvic was noted for acute mild diverticulitis. [address] Shrestha. (ADELINA ELLIOTT APRN) Course & Med Decision Making 69-year-old female presents with flank pain. CT shows diverticulitis. Abdomen is nonsurgical there is no free air. Patient was placed on antibiotics and will be admitted to Dr. Torres I have personally interviewed and examined patient. All charts, labs and imaging studies were reviewed. I agreed with the PA/TRIMMER MACHINE's findings, exam and plan of care (MICHEAL SHRESTHA MD) Dragon Disclaimer: Dragon Disclaimer: This electronic medical record was generated, in whole or in part, using a voice recognition dictation system. (ADELINA ELLIOTT APRN) Departure Departure Impression: Primary Impression: Acute diverticulitis Additional Impression: Right flank pain Disposition: 09 ADMITTED INPATIENT Admitting Physician: Mo Torres (MICHEAL SHRESTHA MD) Condition: STABLE Referrals: MO TORRES MD (PCP) Justicifation of Admission Dx: Justifications for Admission: Justification of Admission Dx: N/A (ADELINA ELLIOTT APRN) Justification of Admission Dx: Yes (MICHEAL SHRESTHA MD) ADELINA ELLIOTT APRN Apr 18, 2020 21:58 MICHEAL SHRESTHA MD Apr 18, 2020 23:38
[2020-04-18 22:13] LABS: BASO # 0.1 x10^3/uL (0.0-0.2); BASO % 1 % (0-3); EOS # 0.1 x10^3/uL (0.0-0.7); EOS % 1 % (0-3); HEMATOCRIT 39.1 % (36.0-47.0); HEMOGLOBIN 12.9 g/dL (12.0-15.5); LYMPH # 1.9 x10^3/uL (1.0-4.8); LYMPH % 17 % (24-48); MEAN CORPUSCULAR HEMOGLOBIN 30 pg (25-35); MEAN CORPUSCULAR HGB CONC 33 g/dL (31-37); MEAN CORPUSCULAR VOLUME 91 fL (79-100); MONO # 0.9 x10^3/uL (0.0-1.1); MONO % 8 % (0-9); NEUT # 8.4 x10^3/uL (1.8-7.7); NEUT % 73 % (31-73); PLATELET COUNT 386 x10^3/uL (140-400); RED BLOOD COUNT 4.29 x10^6/uL (3.50-5.40); RED CELL DISTRIBUTION WIDTH 15.6 % (11.5-14.5); WHITE BLOOD COUNT 11.4 x10^3/uL (4.0-11.0)
[2020-04-18 22:27] LABS: CALCIUM 8.8 mg/dL (8.5-10.1); CREATININE 1.2 mg/dL (0.6-1.0); GFR 44.3
[2020-04-18] MEDS ORDERED: IV NORMAL SALINE 1000ML BAG 1,000 ML IV ONE (22:30)
[2020-04-18] MEDS ORDERED: ONDANSETRON PF 4 MG/2 ML VIAL. IVP ONE (22:30)
[2020-04-18] MEDS ORDERED: MORPHINE SULFATE 10 MG/ML VIAL. IV ONE (22:30)
[2020-04-18 22:33] LABS: ALBUMIN 3.1 g/dL (3.4-5.0); ALBUMIN/GLOBULIN RATIO 0.7 (1.0-1.7); MAGNESIUM 2.1 mg/dL (1.8-2.4); TOTAL BILIRUBIN 0.8 mg/dL (0.2-1.0); TOTAL PROTEIN 7.3 g/dL (6.4-8.2)
--- NOTE | 2020-04-18 22:38 | RAD ---
Exam: CT of abdomen and pelvis without contrast INDICATION: Right flank pain TECHNIQUE: Sequential axial images through the abdomen and pelvis obtained without IV contrast. Sagittal and coronal reformatted images were reconstructed from the axial data and reviewed. Comparisons: None FINDINGS: Heart size is normal. No pericardial effusion. Visualized lung bases are clear. No pleural effusion. Evaluation of the solid organs is limited secondary to noncontrast technique. Liver, spleen, pancreas and adrenals are unremarkable. Gallbladder surgically absent. No perinephric inflammation or hydronephrosis. No renal or ureteral calculi are identified. Bladder is decompressed not well evaluated. Uterus is absent. No abnormal adnexal mass. There is extensive diverticulosis seen in the descending and sigmoid colon without evidence of acute diverticulitis. Remainder of the large and small bowel are unremarkable. No free intra-abdominal air or fluid. Abdominal aorta has a normal course and caliber. No enlarged intra-abdominal lymph nodes are identified. No suspicious osseous lesions or acute fractures. IMPRESSION: 1. No renal or ureteral calculi. No evidence for obstructive uropathy. 2. Extensive diverticulosis particularly at the sigmoid colon With questionable mild adjacent wall thickening. Findings may relate to a mild diverticulitis. Exposure: One or more of the following in the visualized dose reduction techniques were utilized for this examination: 1. Automated exposure control 2. Adjustment of the MA and/or KV according to patient size 3. Use of iterative of reconstructive technique Electronically signed by: Grant Garner MD (04/18/2020 10:35 PM) [id number]
[2020-04-18 23:26] LABS: BILIRUBIN,URINE SMALL (NEG); CLARITY,URINE CLEAR; COLOR,URINE AMBER; NITRITE,URINE NEGATIVE (NEG); PROTEIN,URINE NEGATIVE (NEG-TRACE)
[2020-04-18] MEDS ORDERED: CIPROFLOXACIN 400MG PREMIX 200 ML IV ONE (23:30)
[2020-04-18 23:33] LABS: BARBITURATES NEG (NEG); BENZODIAZEPINES POS (NEG); CANNABINOIDS NEG (NEG); COCAINE NEG (NEG); METHADONE NEG (NEG); OPIATES POS (NEG); PHENCYCLIDINE NEG (NEG); SQUAMOUS EPITHELIAL CELL,UR FEW /LPF
[2020-04-18 23:34] LABS: BACTERIA,URINE 0 /HPF (0-FEW); WBC,URINE 0 /HPF (0-4)
[2020-04-18 23:35] LABS: AMPHETAMINE/METHAMPHETAMINE NEG (NEG)
[2020-04-18] MEDS ORDERED: ONDANSETRON PF 4 MG/2 ML VIAL. IV PRN (23:45)
[2020-04-19] VITALS (7 sets, daily range): BP systolic 97–127; BP diastolic 45–73
--- NOTE | 2020-04-19 02:00 | NUR ---
Pt denies sleep apnea but has cpap at home but does not use Addendum: 04/19/20 at 0338 by RADHA MINA RN Amended: Links added.
--- NOTE | 2020-04-19 08:59 | HP ---
ADMIT DATE: 04/19/2020 CHIEF COMPLAINT AND HISTORY OF PRESENT ILLNESS: This 69-year-old white female is well known to me from followup in the office. The patient was admitted through the Emergency Room on the day of admission with severe right-sided flank/back pain. She describes it worse with movement or trying to get up and down. On imaging of her abdomen, she did not have a stone, but was felt to have some diverticulitis and admitted because of pain with inability to do self-care with movement and the findings of possible diverticulitis. PAST MEDICAL HISTORY: Remarkable for recurrent gastrointestinal bleeds. She has a history of hyperlipidemia, depression, anxiety, hypothyroidism, diverticular bleeds. PAST SURGICAL HISTORY: She is status post appendectomy, cholecystectomy and hysterectomy. MEDICATIONS: Brought with the patient, listed on the computer and have been addressed. ALLERGIES: SHE IS ALLERGIC TO LATEX. SOCIAL HISTORY: She lives alone, is a nonsmoker and a nondrinker. FAMILY HISTORY: Noncontributory. REVIEW OF SYSTEMS: As mentioned above. PHYSICAL EXAMINATION: GENERAL: She is a well-developed, well-nourished white female, who is comfortable at rest, but hurts with any sort of movement in the bed. VITAL SIGNS: Stable. She is afebrile. HEAD, EYES, EARS, NOSE AND THROAT: Unremarkable. NECK: Supple, without thyromegaly. CHEST: Clear to auscultation and percussion. HEART: Regular rate and rhythm, without S3, S4 or murmur. ABDOMEN: Soft, nontender, without hepatosplenomegaly or masses. EXTREMITIES: Without cyanosis, clubbing or edema. BACK: She has no significant CVA tenderness. IMPRESSION: Most likely musculoskeletal back pain causing inability to function with a question of diverticulitis on CT scanning. PLAN: We will ask Dr. Dunham from a rehab standpoint to see her to help us sort this out. We will continue the Cipro and Flagyl till this point in time for the diverticulitis. MO REED MD DR: VEGA/alfredo JOB#: [id number] / [id number]
--- NOTE | 2020-04-19 09:42 | NUR ---
SW following. Discussed with RN, pt from home alone, has oxygen at home, uses a walker at home. Clear liquid diet, IV abx. RN advised no SW needs at this time. SW will continue to follow.
[2020-04-19] MEDS: CIPROFLOXACIN 400MG PREMIX 200 ML IV SCH ×2 (11:47→21:26)
[2020-04-19] MEDS: HYDROcodone/APAP 5/325MG 1 TAB TABLET PO PRN ×3 (11:47→23:54)
[2020-04-19] MEDS ORDERED: predniSONE 10 MG TABLET PO SCH (15:00)
[2020-04-19] MEDS ORDERED: PANTOPRAZOLE 40 MG TABLET.DR. PO SCH (15:00)
--- NOTE | 2020-04-19 15:06 | CONS ---
DATE OF CONSULTATION: 04/19/2020 ATTENDING PHYSICIAN: Dr. Hernández. REASON FOR CONSULTATION: The patient was seen at the request of Dr. Hernández for rehab evaluation. HISTORY OF PRESENT ILLNESS: This is a 69-year-old right-handed female patient who was admitted with right-sided flank and lower back area pain without any radiation for the last 2 days, disturbing her sleep. She denies any specific injury. The patient was admitted with a tentative diagnosis of diverticulitis. The patient with recurrent GI bleeding, also history of hyperlipidemia, depression, anxiety, hypothyroidism, and diverticular bleeds, status post appendectomy, cholecystectomy and hysterectomy, KNOWN ALLERGIC TO LATEX. She lives alone, had stairs for her to manage. She is a nonsmoker and nondrinker. She denies any chronic neck or back pain or any tingling and numbness sensation in the extremities or any trouble with her bladder control. Last bowel movement was about a couple of days ago. Since admission, she had CT scan of her abdomen and pelvis, which failed to reveal any renal or ureteral calculi, no evidence of obstructive uropathy, extensive diverticulosis, particularly of the sigmoid colon with questionable mild adjacent wall thickening, may be related to mild diverticulitis. PHYSICAL EXAMINATION: The patient on physical examination today revealed a middle-aged female. She is alert, oriented to time, place, person and circumstance and follows commands appropriately, moves all 4 extremities voluntarily where she had 5/5 grade muscle strength. Deep tendon reflexes are brisk overall. She had equal perception of touch and pinprick sensation bilaterally. She had tenderness to palpation over right thoracic and lumbar paraspinal muscles extending over to sacroiliac joint area and straight leg raising test is negative bilaterally. She had painful limited movements of thoracolumbar spine. She is independent with bed mobility and transfers and up walking using a walker or without a walker. She walks with somewhat wide-based gait. She had painful range of motion of both hip joints. ASSESSMENT: A middle-aged female with subacute right-sided lower back and flank pain in a patient with known diverticulitis, status post recurrent GI bleeding, hyperlipidemia, depression, anxiety, hypothyroidism and previous diverticular bleeds. She had radiological evidence of degenerative disk disease and degenerative joint disease of lumbar vertebrae, mainly at L5-S1 and L4-L5 level. RECOMMENDATIONS: I thought of starting her on oral prednisone and Protonix, but with her GI bleeding, to hold of prednisone, to try her with muscle relaxant medications and ice packs, to consider injecting painful right sacroiliac joint area if the pain persists. Dr. Hernández, I appreciate asking me to participate in the care of this interesting patient. I will be glad to see her for followup with you on as needed basis. ALICE MILTON MD DR: SHADE/alfredo JOB#: [id number] / [id number] [place]
[2020-04-19] MEDS: CYCLOBENZAPRINE 10 MG TABLET. PO SCH ×2 (18:53→23:54)
[2020-04-19] MEDS: LIDOCAINE (700MG/PATCH) PATCH. TD SCH (18:54)
[2020-04-19] MEDS: PATCH REMOVAL. MC SCH (21:25)
[2020-04-19] MEDS: LACTOBACILLUS RHAMNOSUS GG 1 CAPSULE. PO SCH (21:25)
[2020-04-20 03:00] VITALS: BP 139/56
[2020-04-20] MEDS: HYDROcodone/APAP 5/325MG 1 TAB TABLET PO PRN ×3 (04:38→21:23)
[2020-04-20] MEDS: CYCLOBENZAPRINE 10 MG TABLET. PO SCH ×3 (05:44→17:01)
[2020-04-20 07:00] VITALS: BP 115/66
[2020-04-20] MEDS: LACTOBACILLUS RHAMNOSUS GG 1 CAPSULE. PO SCH ×2 (08:50→21:23)
[2020-04-20] MEDS: LIDOCAINE (700MG/PATCH) PATCH. TD SCH (08:52)
[2020-04-20] MEDS: CIPROFLOXACIN 400MG PREMIX 200 ML IV SCH ×2 (08:54→21:23)
--- NOTE | 2020-04-20 09:04 | PDOC ---
DATE OF SERVICE: DATE: 04/20/20 TIME: 09:02 GENERAL General: vss and afebrile. in chair eating breakfast. awake and alert. maybe slight decrease in pain to date. chest clear, heart regular, abdomen benign. advance diet to regular and see how does with therapy. Rehab help appreciated. VITAL SIGNS/I&O Vital Signs/I&O: Vital Signs Date Time Temp Pulse Resp B/P (MAP) Pulse Ox O2 Delivery O2 Flow Rate FiO2 04/20/20 08:51 94 Room Air 04/20/20 07:00 98.0 86 18 115/66 (82) 98.0 04/19/20 18:53 2.0 I & O 04/19/20 04/19/20 04/20/20 15:00 23:00 07:00 Intake Total 300 ml 480 ml 200 ml Balance 300 ml 480 ml 200 ml ALLERGIES Allergies: Allergies Coded Allergies Type Severity Reaction Last Updated Verified latex Allergy Intermediate 05/25/17 Yes morphine Allergy Intermediate Nausea and Vomiting 04/18/20 Yes MEDS Medications: Current Medications Medications (Trade) Dose Ordered Sig/Tatiana Route PRN Reason Start Time Stop Time Status Last Admin Dose Admin Acetaminophen/ Hydrocodone Bitart (Lortab 5/325) 1 tab PRN Q4HRS PRN PO PAIN 04/19/20 11:00 04/20/20 08:51 Cyclobenzaprine HCl (Flexeril) 10 mg Q6HRS PO 04/19/20 18:00 04/20/20 05:44 Lidocaine (Lidoderm) 1 patch DAILY TD 04/19/20 15:00 04/20/20 08:52 Miscellaneous (Lidoderm Patch Removal) 1 ea QHS MC 04/19/20 21:00 04/19/20 21:25 Lactobacillus Rhamnosus (Culturelle) 1 cap BID PO 04/19/20 21:00 04/20/20 08:50 Justifications for Admission Other Justification MO REED MD Apr 20, 2020 09:04
[2020-04-20] MEDS ORDERED: diphenhydrAMINE ORAL ELIXIR 12.5 MG/5 ML ML PO PRN (10:00)
[2020-04-20] MEDS ORDERED: HYDROcodone/APAP 5/325MG 1 TAB TABLET PO PRN (10:00)
[2020-04-20] MEDS: ATORVASTATIN CALCIUM 40 MG TABLET. PO SCH (10:10)
[2020-04-20] MEDS: DULoxetine HCL 30 MG CAPSULE.DR PO SCH (10:11)
[2020-04-20] MEDS: busPIRone 5 MG TABLET. PO SCH ×3 (10:11→21:23)
[2020-04-20] MEDS: LEVOTHYROXINE 88 MCG TABLET PO SCH (10:11)
[2020-04-20 11:00] VITALS: BP 129/57
--- NOTE | 2020-04-20 11:17 | PDOC ---
PROGRESS NOTES Date of Service DATE: 04/20/20 TIME: 11:14 Subjective Subjective She feels somewhat better. Objective Objective Vital Signs Date Time Temp Pulse Resp B/P (MAP) Pulse Ox O2 Delivery O2 Flow Rate FiO2 04/20/20 10:13 94 Room Air 04/20/20 07:00 98.0 86 18 115/66 (82) 98.0 04/19/20 18:53 2.0 Intake and Output 04/20/20 07:00 Intake Total 980 ml Balance 980 ml Intake Oral 980 ml # Voids 3 Physical Exam Physical Exam She is sitting up in bedside chair and she continues with tenderness to palpation over thoracic and lumbar paraspinal muscles and sacroiliac joint area,right >left. Assessment Assessment Problems Medical Problems: (1) Acute diverticulitis Status: Acute (2) Right flank pain Status: Acute Plan Plan of Care To continue physical therapy and to consider injecting painful right lumbar paraspinal muscle trigger points,if pain persists. Comment Review of Relevant I have reviewed the following items gabriel (where applicable) has been applied. Labs Laboratory Tests Test 04/18/20 22:05 04/18/20 23:15 White Blood Count 11.4 x10^3/uL (4.0-11.0) Red Blood Count 4.29 x10^6/uL (3.50-5.40) Hemoglobin 12.9 g/dL (12.0-15.5) Hematocrit 39.1 % (36.0-47.0) Mean Corpuscular Volume 91 fL (79-100) Mean Corpuscular Hemoglobin 30 pg (25-35) Mean Corpuscular Hemoglobin Concent 33 g/dL (31-37) Red Cell Distribution Width 15.6 % (11.5-14.5) Platelet Count 386 x10^3/uL (140-400) Neutrophils (%) (Auto) 73 % (31-73) Lymphocytes (%) (Auto) 17 % (24-48) Monocytes (%) (Auto) 8 % (0-9) Eosinophils (%) (Auto) 1 % (0-3) Basophils (%) (Auto) 1 % (0-3) Neutrophils # (Auto) 8.4 x10^3/uL (1.8-7.7) Lymphocytes # (Auto) 1.9 x10^3/uL (1.0-4.8) Monocytes # (Auto) 0.9 x10^3/uL (0.0-1.1) Eosinophils # (Auto) 0.1 x10^3/uL (0.0-0.7) Basophils # (Auto) 0.1 x10^3/uL (0.0-0.2) Sodium Level 136 mmol/L (136-145) Potassium Level 4.0 mmol/L (3.5-5.1) Chloride Level 101 mmol/L (98-107) Carbon Dioxide Level 27 mmol/L (21-32) Anion Gap 8 (6-14) Blood Urea Nitrogen 21 mg/dL (7-20) Creatinine 1.2 mg/dL (0.6-1.0) Estimated GFR (Cockcroft-Gault) 44.3 BUN/Creatinine Ratio 18 (6-20) Glucose Level 135 mg/dL (70-99) Calcium Level 8.8 mg/dL (8.5-10.1) Magnesium Level 2.1 mg/dL (1.8-2.4) Total Bilirubin 0.8 mg/dL (0.2-1.0) Aspartate Amino Transf (AST/SGOT) 16 U/L (15-37) Alanine Aminotransferase (ALT/SGPT) 31 U/L (14-59) Alkaline Phosphatase 164 U/L (46-116) Total Protein 7.3 g/dL (6.4-8.2) Albumin 3.1 g/dL (3.4-5.0) Albumin/Globulin Ratio 0.7 (1.0-1.7) Lipase 73 U/L (73-393) Ethyl Alcohol Level < 10 mg/dL (0-10) Urine Collection Type U cath Urine Color Erika Urine Clarity Clear Urine pH 5.0 (<5.0-8.0) Urine Specific Reagan 1.025 (1.000-1.030) Urine Protein Negative mg/dL (NEG-TRACE) Urine Glucose (UA) Negative mg/dL (NEG) Urine Ketones (Stick) 15 mg/dL (NEG) Urine Blood Large (NEG) Urine Nitrite Negative (NEG) Urine Bilirubin Small (NEG) Urine Urobilinogen Dipstick 1.0 mg/dL (0.2 mg/dL) Urine Leukocyte Esterase Negative (NEG) Urine RBC 6-10 /HPF (0-2) Urine WBC 0 /HPF (0-4) Urine Squamous Epithelial Cells Few /LPF Urine Bacteria 0 /HPF (0-FEW) Urine Mucus Mod /LPF Urine Opiates Screen Pos (NEG) Urine Methadone Screen Neg (NEG) Urine Barbiturates Neg (NEG) Urine Phencyclidine Screen Neg (NEG) Urine Amphetamine/Methamphetamine Neg (NEG) Urine Benzodiazepines Screen Pos (NEG) Urine Cocaine Screen Neg (NEG) Urine Cannabinoids Screen Neg (NEG) Urine Ethyl Alcohol Neg (NEG) Medications Current Medications Sodium Chloride 1,000 ml @ 1,000 mls/hr 1X ONCE IV Last administered on 04/18/20at 22:09; Start 04/18/20 at 22:30; Stop 04/18/20 at 23:29; Status DC Ondansetron HCl (Zofran) 4 mg 1X ONCE IVP Last administered on 04/18/20at 22:14; Start 04/18/20 at 22:30; Stop 04/18/20 at 22:31; Status DC Morphine Sulfate (Morphine Sulfate) 5 mg 1X ONCE IV Last administered on 04/18/20at 22:14; Start 04/18/20 at 22:30; Stop 04/18/20 at 22:31; Status DC Ciprofloxacin/ Dextrose 200 ml @ 200 mls/hr 1X ONCE IV Last administered on 04/19/20at 01:05; Start 04/18/20 at 23:30; Stop 04/19/20 at 00:29; Status DC Metronidazole 100 ml @ 100 mls/hr 1X ONCE IV Last administered on 04/18/20at 23:28; Start 04/18/20 at 23:30; Stop 04/19/20 at 00:29; Status DC Ondansetron HCl (Zofran) 4 mg PRN Q8HRS PRN IV NAUSEA/VOMITING 1ST CHOICE; Start 04/18/20 at 23:45; Stop 04/19/20 at 23:44; Status DC Ciprofloxacin/ Dextrose 200 ml @ 200 mls/hr Q12HR IV Last administered on 04/20/20at 08:54; Start 04/19/20 at 09:00 Metronidazole 100 ml @ 100 mls/hr Q12HR IV Last administered on 04/20/20at 10:12; Start 04/19/20 at 09:00 Acetaminophen/ Hydrocodone Bitart (Lortab 5/325) 1 tab PRN Q4HRS PRN PO PAIN Last administered on 04/20/20 08:51; Start 04/19/20 at 11:00 Cyclobenzaprine HCl (Flexeril) 10 mg Q6HRS PO Last administered on 04/20/20at 05:44; Start 04/19/20 at 18:00 Prednisone (Prednisone) 10 mg DAILY PO ; Start 04/19/20 at 15:00; Status Cancel Pantoprazole Sodium (Protonix) 40 mg DAILYAC PO ; Start 04/19/20 at 15:00; Stop 04/19/20 at 14:17; Status DC Lidocaine (Lidoderm) 1 patch DAILY TD Last administered on 04/20/20 08:52; Start 04/19/20 at 15:00 Miscellaneous (Lidoderm Patch Removal) 1 ea QHS MC Last administered on 04/19/20at 21:25; Start 04/19/20 at 21:00 Lactobacillus Rhamnosus (Culturelle) 1 cap BID PO Last administered on 04/20/20at 08:50; Start 04/19/20 at 21:00 Atorvastatin Calcium (Lipitor) 40 mg DAILY PO Last administered on 04/20/20at 10:10; Start 04/20/20 at 10:30 Buspirone HCl (Buspar) 5 mg TID PO Last administered on 04/20/20at 10:11; Start 04/20/20 at 10:30 Acetaminophen/ Hydrocodone Bitart (Lortab 5/325) 1 tab PRN Q6HRS PRN PO PAIN; Start 04/20/20 at 10:00 Levothyroxine Sodium (Synthroid) 44 mcg DAILY07 PO Last administered on 04/20/20at 10:11; Start 04/20/20 at 10:30 Diphenhydramine HCl (Benadryl Oral Elixir) 12.5 mg PRN DAILY PRN PO ALLERGIES; Start 04/20/20 at 10:00 Duloxetine HCl (Cymbalta) 120 mg DAILY PO Last administered on 04/20/20at 10:11; Start 04/20/20 at 10:30 Active Scripts Active [place] 5-325 Tablet (Acetaminophen/Hydrocodone Bitart) 1 Each Tablet 1 Tab PO PRN Q6HRS PRN Reported Buspirone Hcl 5 Mg Tablet 1 Tab PO TID Atorvastatin Calcium 40 Mg Tablet 1 Tab PO DAILY Alprazolam 0.5 Mg Tablet 1 Tab PO DAILY PRN Levothyroxine Sodium 88 Mcg Tablet 0.5 Tab PO DAILY Cymbalta (Duloxetine Hcl) 60 Mg Capsule.dr 120 Mg PO DAILY Benadryl Allergy (Diphenhydramine Hcl) 12.5 Mg/5 Ml Liquid 12.5 Mg PO PRN DAILY PRN Vitals/I & O Vital Sign - Last 24 Hours 04/19/20 04/19/20 04/19/20 04/19/20 11:47 13:44 15:00 18:53 Temp 97.9 97.9 Pulse 82 Resp 18 B/P (MAP) 112/60 (77) Pulse Ox 92 92 96 96 O2 Delivery Nasal Cannula Nasal Cannula Room Air Nasal Cannula O2 Flow Rate 2.0 2.0 2.0 04/19/20 04/19/20 04/19/20 04/19/20 19:00 19:30 19:53 23:00 Temp 97.9 98.5 97.9 98.5 Pulse 86 77 Resp 16 16 B/P (MAP) 122/73 (89) 105/62 (76) Pulse Ox 90 91 O2 Delivery Room Air Room Air Room Air Room Air 04/19/20 04/20/20 04/20/20 04/20/20 23:54 01:00 03:00 04:38 Temp 98.0 98.0 Pulse 87 Resp 18 B/P (MAP) 139/56 (83) Pulse Ox 92 O2 Delivery Room Air Room Air Room Air Room Air 04/20/20 04/20/20 04/20/20 04/20/20 05:45 07:00 08:00 08:51 Temp 98.0 98.0 Pulse 86 Resp 18 B/P (MAP) 115/66 (82) Pulse Ox 94 94 O2 Delivery Room Air Room Air Room Air Room Air 04/20/20 10:13 Pulse Ox 94 O2 Delivery Room Air Intake and Output 04/19/20 04/19/20 04/20/20 15:00 23:00 07:00 Intake Total 300 ml 480 ml 200 ml Balance 300 ml 480 ml 200 ml Justifications for Admission Other Justification ALICE MILTON MD Apr 20, 2020 11:17
[2020-04-20 15:00] VITALS: BP 121/69
[2020-04-20 19:00] VITALS: BP 120/70
[2020-04-20] MEDS: PATCH REMOVAL. MC SCH (21:00)
[2020-04-20 23:00] VITALS: BP 125/55
[2020-04-21] MEDS: CYCLOBENZAPRINE 10 MG TABLET. PO SCH ×4 (01:15→16:35)
[2020-04-21 03:00] VITALS: BP 105/52
[2020-04-21] MEDS: LEVOTHYROXINE 88 MCG TABLET PO SCH (05:55)
[2020-04-21 07:00] VITALS: BP 122/69
[2020-04-21] MEDS: LACTOBACILLUS RHAMNOSUS GG 1 CAPSULE. PO SCH ×2 (07:53→21:05)
[2020-04-21] MEDS: HYDROcodone/APAP 5/325MG 1 TAB TABLET PO PRN (07:53)
[2020-04-21] MEDS: ATORVASTATIN CALCIUM 40 MG TABLET. PO SCH (07:53)
[2020-04-21] MEDS: busPIRone 5 MG TABLET. PO SCH ×3 (07:53→21:05)
[2020-04-21] MEDS: DULoxetine HCL 30 MG CAPSULE.DR PO SCH (07:53)
[2020-04-21] MEDS: LIDOCAINE (700MG/PATCH) PATCH. TD SCH (07:55)
[2020-04-21] MEDS: CIPROFLOXACIN 400MG PREMIX 200 ML IV SCH ×2 (07:56→21:15)
--- NOTE | 2020-04-21 10:51 | PDOC ---
DATE OF SERVICE: DATE: 04/21/20 TIME: 10:50 GENERAL General: vss and afebrile. awake and alert and sitting in chair. winces with pain with change of position in chair. therapy feels snu best and discussed with patient and she is considering since she lives alone but not sure. exam stable. expect dc tomorrow to snu or home with home health. VITAL SIGNS/I&O Vital Signs/I&O: Vital Signs Date Time Temp Pulse Resp B/P (MAP) Pulse Ox O2 Delivery O2 Flow Rate FiO2 04/21/20 08:56 96 Room Air 04/21/20 07:00 97.8 88 18 122/69 (86) 97.8 I & O 04/20/20 04/20/20 04/21/20 15:00 23:00 07:00 Intake Total 0 ml 360 ml Balance 0 ml 360 ml ALLERGIES Allergies: Allergies Coded Allergies Type Severity Reaction Last Updated Verified latex Allergy Intermediate 05/25/17 Yes morphine Allergy Intermediate Nausea and Vomiting 04/18/20 Yes Justifications for Admission Other Justification APPL,MO Romero MD Apr 21, 2020 10:51
[2020-04-21 11:00] VITALS: BP 125/68
[2020-04-21 15:00] VITALS: BP 112/65
[2020-04-21 19:00] VITALS: BP 107/55
[2020-04-21] MEDS: PATCH REMOVAL. MC SCH (21:00)
[2020-04-21 23:00] VITALS: BP 122/69
[2020-04-22] VITALS (7 sets, daily range): BP systolic 102–135; BP diastolic 51–74
[2020-04-22] MEDS: CYCLOBENZAPRINE 10 MG TABLET. PO SCH ×4 (01:19→17:22)
[2020-04-22] MEDS: LEVOTHYROXINE 88 MCG TABLET PO SCH (05:55)
--- NOTE | 2020-04-22 07:43 | PDOC ---
DATE OF SERVICE: DATE: 04/22/20 TIME: 07:42 GENERAL General: vss and afebrile. awake and alert and in chair. chest clear, heart regular, abdomen benign. still with significantly limited mobility due to back. snu eval for today. continue therapy. VITAL SIGNS/I&O Vital Signs/I&O: Vital Signs Date Time Temp Pulse Resp B/P (MAP) Pulse Ox O2 Delivery O2 Flow Rate FiO2 04/22/20 03:00 97.7 88 19 118/52 (74) 93 Room Air 97.7 I & O 04/21/20 04/21/20 04/22/20 15:00 23:00 07:00 Intake Total 600 ml 600 ml 240 ml Balance 600 ml 600 ml 240 ml ALLERGIES Allergies: Allergies Coded Allergies Type Severity Reaction Last Updated Verified latex Allergy Intermediate 05/25/17 Yes morphine Allergy Intermediate Nausea and Vomiting 04/18/20 Yes Justifications for Admission Other Justification APPL,MO Romero MD Apr 22, 2020 07:43
[2020-04-22] MEDS: LIDOCAINE (700MG/PATCH) PATCH. TD SCH (09:00)
[2020-04-22] MEDS: busPIRone 5 MG TABLET. PO SCH ×3 (09:58→21:47)
[2020-04-22] MEDS: ATORVASTATIN CALCIUM 40 MG TABLET. PO SCH (09:58)
[2020-04-22] MEDS: LACTOBACILLUS RHAMNOSUS GG 1 CAPSULE. PO SCH ×2 (09:58→21:47)
[2020-04-22] MEDS: DULoxetine HCL 30 MG CAPSULE.DR PO SCH (09:59)
[2020-04-22] MEDS: CIPROFLOXACIN 400MG PREMIX 200 ML IV SCH ×2 (10:05→21:50)
[2020-04-22] MEDS ORDERED: DOCUSATE SODIUM 100 MG CAPSULE. PO PRN (11:30)
--- NOTE | 2020-04-22 13:30 | PDOC ---
PROGRESS NOTES Date of Service DATE: 04/22/20 TIME: 13:28 Subjective Subjective Less pain in her back. Objective Objective Vital Signs Date Time Temp Pulse Resp B/P (MAP) Pulse Ox O2 Delivery O2 Flow Rate FiO2 04/22/20 11:21 98.2 98 12 102/65 (77) 94 Room Air 98.2 04/19/20 18:53 2.0 Intake and Output 04/22/20 07:00 Intake Total 1440 ml Balance 1440 ml Intake Oral 1440 ml # Voids 1 Physical Exam Physical Exam She is alert,sitting at edge of bed and she continues to get up and walk with supervision. Assessment Assessment Problems Medical Problems: (1) Acute diverticulitis Status: Acute (2) Right flank pain Status: Acute Plan Plan of Care Agree with plans for SNF transfer if she qualifies. She is not interested in injections now, Comment Review of Relevant I have reviewed the following items gabriel (where applicable) has been applied. Labs Laboratory Tests Test 04/22/20 10:41 SARS-CoV-2 Antigen (Rapid) Negative (NEGATIVE) Laboratory Tests Test 04/22/20 10:41 SARS-CoV-2 Antigen (Rapid) Negative (NEGATIVE) Medications Current Medications Sodium Chloride 1,000 ml @ 1,000 mls/hr 1X ONCE IV Last administered on 04/18/20at 22:09; Start 04/18/20 at 22:30; Stop 04/18/20 at 23:29; Status DC Ondansetron HCl (Zofran) 4 mg 1X ONCE IVP Last administered on 04/18/20at 22:14; Start 04/18/20 at 22:30; Stop 04/18/20 at 22:31; Status DC Morphine Sulfate (Morphine Sulfate) 5 mg 1X ONCE IV Last administered on 04/18/20at 22:14; Start 04/18/20 at 22:30; Stop 04/18/20 at 22:31; Status DC Ciprofloxacin/ Dextrose 200 ml @ 200 mls/hr 1X ONCE IV Last administered on 04/19/20at 01:05; Start 04/18/20 at 23:30; Stop 04/19/20 at 00:29; Status DC Metronidazole 100 ml @ 100 mls/hr 1X ONCE IV Last administered on 04/18/20at 23:28; Start 04/18/20 at 23:30; Stop 04/19/20 at 00:29; Status DC Ondansetron HCl (Zofran) 4 mg PRN Q8HRS PRN IV NAUSEA/VOMITING 1ST CHOICE; Start 04/18/20 at 23:45; Stop 04/19/20 at 23:44; Status DC Ciprofloxacin/ Dextrose 200 ml @ 200 mls/hr Q12HR IV Last administered on 04/22/20at 10:05; Start 04/19/20 at 09:00 Metronidazole 100 ml @ 100 mls/hr Q12HR IV Last administered on 04/22/20at 12:43; Start 04/19/20 at 09:00 Acetaminophen/ Hydrocodone Bitart (Lortab 5/325) 1 tab PRN Q4HRS PRN PO PAIN Last administered on 04/21/20at 07:53; Start 04/19/20 at 11:00; Stop 04/21/20 at 11:08; Status DC Cyclobenzaprine HCl (Flexeril) 10 mg Q6HRS PO Last administered on 04/22/20at 12:42; Start 04/19/20 at 18:00 Prednisone (Prednisone) 10 mg DAILY PO ; Start 04/19/20 at 15:00; Status Cancel Pantoprazole Sodium (Protonix) 40 mg DAILYAC PO ; Start 04/19/20 at 15:00; Stop 04/19/20 at 14:17; Status DC Lidocaine (Lidoderm) 1 patch DAILY TD Last administered on 04/22/20at 09:00; Start 04/19/20 at 15:00 Miscellaneous (Lidoderm Patch Removal) 1 ea QHS MC Last administered on at 21:00; Start 04/19/20 at 21:00 Lactobacillus Rhamnosus (Culturelle) 1 cap BID PO Last administered on 04/22/20at 09:58; Start 04/19/20 at 21:00 Atorvastatin Calcium (Lipitor) 40 mg DAILY PO Last administered on 04/22/20at 09:58; Start 04/20/20 at 10:30 Buspirone HCl (Buspar) 5 mg TID PO Last administered on 04/22/20at 09:58; Start 04/20/20 at 10:30 Acetaminophen/ Hydrocodone Bitart (Lortab 5/325) 1 tab PRN Q6HRS PRN PO PAIN; Start 04/20/20 at 10:00 Levothyroxine Sodium (Synthroid) 44 mcg DAILY07 PO Last administered on 04/22/20at 05:55; Start 04/20/20 at 10:30 Diphenhydramine HCl (Benadryl Oral Elixir) 12.5 mg PRN DAILY PRN PO ALLERGIES; Start 04/20/20 at 10:00 Duloxetine HCl (Cymbalta) 120 mg DAILY PO Last administered on 04/22/20at 09:59; Start 04/20/20 at 10:30 Docusate Sodium (Colace) 100 mg PRN DAILY PRN PO HARD STOOLS Last administered on 04/22/20at 12:42; Start 04/22/20 at 11:30 Active Scripts Active [place] 5-325 Tablet (Acetaminophen/Hydrocodone Bitart) 1 Each Tablet 1 Tab PO PRN Q6HRS PRN Reported Buspirone Hcl 5 Mg Tablet 1 Tab PO TID Atorvastatin Calcium 40 Mg Tablet 1 Tab PO DAILY Alprazolam 0.5 Mg Tablet 1 Tab PO DAILY PRN Levothyroxine Sodium 88 Mcg Tablet 0.5 Tab PO DAILY Cymbalta (Duloxetine Hcl) 60 Mg Capsule.dr 120 Mg PO DAILY Benadryl Allergy (Diphenhydramine Hcl) 12.5 Mg/5 Ml Liquid 12.5 Mg PO PRN DAILY PRN Vitals/I & O Vital Sign - Last 24 Hours 04/21/20 04/21/20 04/21/20 04/21/20 15:00 19:00 20:00 23:00 Temp 97.8 98.1 98.0 97.8 98.1 98.0 Pulse 94 94 88 Resp 18 19 18 B/P (MAP) 112/65 (81) 107/55 (72) 122/69 (86) Pulse Ox 95 93 94 O2 Delivery Room Air Room Air Room Air 04/22/20 04/22/20 04/22/20 03:00 07:00 11:21 Temp 97.7 97.8 98.2 97.7 97.8 98.2 Pulse 88 97 98 Resp 19 18 12 B/P (MAP) 118/52 (74) 135/74 (94) 102/65 (77) Pulse Ox 93 96 94 O2 Delivery Room Air Room Air Room Air Intake and Output 8/04/21/20 04/22/20 15:00 23:00 07:00 Intake Total 600 ml 600 ml 240 ml Balance 600 ml 600 ml 240 ml Justifications for Admission Other Justification ALICE MILTON MD Apr 22, 2020 13:30
[2020-04-22] MEDS: PATCH REMOVAL. MC SCH (21:00)
[2020-04-23] MEDS: CYCLOBENZAPRINE 10 MG TABLET. PO SCH ×3 (00:09→13:10)
[2020-04-23 03:00] VITALS: BP 164/80
[2020-04-23] MEDS: LEVOTHYROXINE 88 MCG TABLET PO SCH (06:07)
[2020-04-23 07:00] VITALS: BP 122/65
--- NOTE | 2020-04-23 07:42 | PDOC ---
DATE OF SERVICE: DATE: 04/23/20 TIME: 07:41 GENERAL General: vss and afebrile. awake and alert and in chair with ongoing limited movement due to back pain. remains tender over parathoracic musculature. awaiting approval for snu. VITAL SIGNS/I&O Vital Signs/I&O: Vital Signs Date Time Temp Pulse Resp B/P (MAP) Pulse Ox O2 Delivery O2 Flow Rate FiO2 04/23/20 03:00 97.4 110 22 164/80 (108) 95 Room Air 97.4 I & O 04/22/20 04/22/20 04/23/20 15:00 23:00 07:00 Intake Total 200 ml 240 ml 120 ml Balance 200 ml 240 ml 120 ml ALLERGIES Allergies: Allergies Coded Allergies Type Severity Reaction Last Updated Verified latex Allergy Intermediate 05/25/17 Yes morphine Allergy Intermediate Nausea and Vomiting 04/18/20 Yes MEDS Medications: Current Medications Medications (Trade) Dose Ordered Sig/Tatiana Route PRN Reason Start Time Stop Time Status Last Admin Dose Admin Docusate Sodium (Colace) 100 mg PRN DAILY PRN PO HARD STOOLS 04/22/20 11:30 04/22/20 12:42 LAB Lab: Laboratory Tests Test 04/22/20 10:41 SARS-CoV-2 Antigen (Rapid) Negative (NEGATIVE) Justifications for Admission Other Justification MO REED MD Apr 23, 2020 07:42
[2020-04-23] MEDS: LACTOBACILLUS RHAMNOSUS GG 1 CAPSULE. PO SCH (08:49)
[2020-04-23] MEDS: DULoxetine HCL 30 MG CAPSULE.DR PO SCH (08:49)
[2020-04-23] MEDS: busPIRone 5 MG TABLET. PO SCH ×2 (08:49→13:10)
[2020-04-23] MEDS: ATORVASTATIN CALCIUM 40 MG TABLET. PO SCH (08:49)
[2020-04-23] MEDS: LIDOCAINE (700MG/PATCH) PATCH. TD SCH (08:51)
[2020-04-23] MEDS: CIPROFLOXACIN 400MG PREMIX 200 ML IV SCH (10:28)
[2020-04-23 11:00] VITALS: BP 124/68
--- NOTE | 2020-04-23 13:48 | PDOC ---
PROGRESS NOTES Date of Service DATE: 04/23/20 TIME: 13:46 Subjective Subjective She feels less back pain. Objective Objective Vital Signs Date Time Temp Pulse Resp B/P (MAP) Pulse Ox O2 Delivery O2 Flow Rate FiO2 04/23/20 11:00 98.4 96 18 124/68 (86) 94 Room Air 98.4 04/19/20 18:53 2.0 Intake and Output 04/23/20 07:00 Intake Total 560 ml Balance 560 ml Intake Oral 560 ml # Voids 4 Physical Exam Physical Exam She is alert,sitting in bedside chair and comfortable but continues with tenderness to palpation over right lumbar paraspinal muscles and sacroiliac joint area with painfully limited lumbar spine ROM. Assessment Assessment Problems Medical Problems: (1) Acute diverticulitis Status: Acute (2) Right flank pain Status: Acute Plan Plan of Care To SNF when medically stable. Comment Review of Relevant I have reviewed the following items gabriel (where applicable) has been applied. Labs Laboratory Tests Test 04/22/20 10:41 SARS-CoV-2 Antigen (Rapid) Negative (NEGATIVE) Medications Current Medications Sodium Chloride 1,000 ml @ 1,000 mls/hr 1X ONCE IV Last administered on 04/18/20at 22:09; Start 04/18/20 at 22:30; Stop 04/18/20 at 23:29; Status DC Ondansetron HCl (Zofran) 4 mg 1X ONCE IVP Last administered on 04/18/20at 22:14; Start 04/18/20 at 22:30; Stop 04/18/20 at 22:31; Status DC Morphine Sulfate (Morphine Sulfate) 5 mg 1X ONCE IV Last administered on 04/18/20at 22:14; Start 04/18/20 at 22:30; Stop 04/18/20 at 22:31; Status DC Ciprofloxacin/ Dextrose 200 ml @ 200 mls/hr 1X ONCE IV Last administered on 04/19/20at 01:05; Start 04/18/20 at 23:30; Stop 04/19/20 at 00:29; Status DC Metronidazole 100 ml @ 100 mls/hr 1X ONCE IV Last administered on 04/18/20at 23:28; Start 04/18/20 at 23:30; Stop 04/19/20 at 00:29; Status DC Ondansetron HCl (Zofran) 4 mg PRN Q8HRS PRN IV NAUSEA/VOMITING 1ST CHOICE; Start 04/18/20 at 23:45; Stop 04/19/20 at 23:44; Status DC Ciprofloxacin/ Dextrose 200 ml @ 200 mls/hr Q12HR IV Last administered on 04/23/20at 10:28; Start 04/19/20 at 09:00 Metronidazole 100 ml @ 100 mls/hr Q12HR IV Last administered on 04/23/20at 08:51; Start 04/19/20 at 09:00 Acetaminophen/ Hydrocodone Bitart (Lortab 5/325) 1 tab PRN Q4HRS PRN PO PAIN Last administered on 04/21/20 07:53; Start 04/19/20 at 11:00; Stop 04/21/20 at 11:08; Status DC Cyclobenzaprine HCl (Flexeril) 10 mg Q6HRS PO Last administered on 04/23/20at 13:10; Start 04/19/20 at 18:00 Prednisone (Prednisone) 10 mg DAILY PO ; Start 04/19/20 at 15:00; Status Cancel Pantoprazole Sodium (Protonix) 40 mg DAILYAC PO ; Start 04/19/20 at 15:00; Stop 04/19/20 at 14:17; Status DC Lidocaine (Lidoderm) 1 patch DAILY TD Last administered on 04/23/20at 08:51; Start 04/19/20 at 15:00 Miscellaneous (Lidoderm Patch Removal) 1 ea QHS MC Last administered on 04/22/20at 21:00; Start 04/19/20 at 21:00 Lactobacillus Rhamnosus (Culturelle) 1 cap BID PO Last administered on 04/23/20at 08:49; Start 04/19/20 at 21:00 Atorvastatin Calcium (Lipitor) 40 mg DAILY PO Last administered on 04/23/20 08:49; Start 04/20/20 at 10:30 Buspirone HCl (Buspar) 5 mg TID PO Last administered on 04/23/20at 13:10; Start 04/20/20 at 10:30 Acetaminophen/ Hydrocodone Bitart (Lortab 5/325) 1 tab PRN Q6HRS PRN PO PAIN L ast administered on 04/22/20at 14:19; Start 04/20/20 at 10:00 Levothyroxine Sodium (Synthroid) 44 mcg DAILY07 PO Last administered on 04/23/20at 06:07; Start 04/20/20 at 10:30 Diphenhydramine HCl (Benadryl Oral Elixir) 12.5 mg PRN DAILY PRN PO ALLERGIES; Start 04/20/20 at 10:00 Duloxetine HCl (Cymbalta) 120 mg DAILY PO Last administered on 04/23/20at 08:49; Start 04/20/20 at 10:30 Docusate Sodium (Colace) 100 mg PRN DAILY PRN PO HARD STOOLS Last administered on 04/22/20at 12:42; Start 04/22/20 at 11:30 Active Scripts Active [place] 5-325 Tablet (Acetaminophen/Hydrocodone Bitart) 1 Each Tablet 1 Tab PO PRN Q6HRS PRN Reported Buspirone Hcl 5 Mg Tablet 1 Tab PO TID Atorvastatin Calcium 40 Mg Tablet 1 Tab PO DAILY Alprazolam 0.5 Mg Tablet 1 Tab PO DAILY PRN Levothyroxine Sodium 88 Mcg Tablet 0.5 Tab PO DAILY Cymbalta (Duloxetine Hcl) 60 Mg Capsule.dr 120 Mg PO DAILY Benadryl Allergy (Diphenhydramine Hcl) 12.5 Mg/5 Ml Liquid 12.5 Mg PO PRN DAILY PRN Vitals/I & O Vital Sign - Last 24 Hours 04/22/20 04/22/20 04/22/20 04/22/20 14:19 16:05 17:23 19:00 Temp 98.3 98.8 97.5 98.3 98.8 97.5 Pulse 94 101 89 Resp 18 20 B/P (MAP) 114/64 (81) 130/74 (92) 102/65 (77) Pulse Ox 95 92 94 O2 Delivery Room Air Room Air Room Air Room Air 04/22/20 04/22/20 04/23/20 04/23/20 20:00 23:00 03:00 07:00 Temp 97.7 97.4 98.3 97.7 97.4 98.3 Pulse 63 110 98 Resp 20 22 16 B/P (MAP) 129/51 (77) 164/80 (108) 122/65 (84) Pulse Ox 95 95 93 O2 Delivery Room Air Room Air Room Air Room Air 04/23/20 04/23/20 08:00 11:00 Temp 98.4 98.4 Pulse 96 Resp 18 B/P (MAP) 124/68 (86) Pulse Ox 94 O2 Delivery Room Air Room Air Intake and Output 04/22/20 04/22/20 04/23/20 15:00 23:00 07:00 Intake Total 200 ml 240 ml 120 ml Balance 200 ml 240 ml 120 ml Justifications for Admission Other Justification ALICE MILTON MD Apr 23, 2020 13:48
[2020-04-23] MEDS ORDERED: LIDO700A21 TD (14:02)
[2020-04-23] MEDS ORDERED: CYCL10TA2 PO (14:02)
--- NOTE | 2020-04-23 14:03 | SNU/HH DC ---
DISCHARGE ORDERS DISCHARGE INFORMATION: DISCHARGE DATE: Apr 23, 2020 FINAL DIAGNOSIS Problems Medical Problems: (1) Acute diverticulitis Status: Acute (2) Right flank pain Status: Acute CONDITION ON DISCHARGE: Stable CODE STATUS: Code Status: Full FPC: SNF STAY <30 DAYS: Yes HOSPICE: HOSPICE: No HOSPICE EVAL & TREAT: No LTAC: ADMIT TO LTAC: No POST DISCHARGE ORDERS: ACTIVITY ORDERS: Activity as tolerated WEIGHT BEARING STATUS: As tolerated DIET AFTER DISCHARGE: Regular CHECKS AFTER DISCHARGE: CHECKS AFTER DISCHARGE: Check blood press - daily, Check your Temp as needed TREATMENT/EQUIPMENT ORDERS: Physical Therapy For: Evalulation/Treatment Occupational Therapy For: Evaluation/Treatment DISCHARGE MEDICATIONS: Home Meds Active Scripts Lidocaine (Lidocaine PATCH ) 1 Each Adh..patch, 1 PATCH TD DAILY for back pain for 30 Days, #30 PATCH Prov:MO REED MD 04/23/20 Cyclobenzaprine Hcl (CYCLOBENZAPRINE HCL) 10 Mg Tablet, 10 MG PO Q6HRS for back spasms for 30 Days, #120 TAB Prov:MO REED MD 04/23/20 Hydrocodone/Apap 5-325 (NORCO 5-325 TABLET) 1 Each Tablet, 1 TAB PO PRN Q6HRS PRN for PAIN, #20 TAB 0 Refills Prov:RUTHANN MOLINA MD 05/06/19 Reported Medications Buspirone Hcl (BUSPIRONE HCL) 5 Mg Tablet, 1 TAB PO TID for anxiety, #60 TAB 2 Refills 07/22/18 Atorvastatin Calcium (ATORVASTATIN CALCIUM) 40 Mg Tablet, 1 TAB PO DAILY for cholesterol, #30 TAB 5 Refills 07/22/18 Levothyroxine Sodium (LEVOTHYROXINE SODIUM) 88 Mcg Tablet, 0.5 TAB PO DAILY, #30 TAB 5 Refills 05/28/17 Duloxetine Hcl (CYMBALTA) 60 Mg Capsule.dr, 120 MG PO DAILY, CAP 05/23/17 Diphenhydramine Hcl (BENADRYL ALLERGY) 12.5 Mg/5 Ml Liquid, 12.5 MG PO PRN DAILY PRN for ALLERGIES, LIQUID 01/01/16 Discontinued Reported Medications Alprazolam (ALPRAZOLAM) 0.5 Mg Tablet, 1 TAB PO DAILY PRN for ANXIETY / AGITATION, #30 TAB 07/22/18 MO REED MD Apr 23, 2020 14:03
[2020-04-23 15:00] VITALS: BP 135/78
== END 2020-04-23 14:20 | DRG 392 ==
LOC: ER 21:32 → 4 NORTH 04-19 00:01
PROVIDERS: ADMIT Family Medicine; ATTEND Family Medicine
DX: K57.92 Diverticulitis of intestine, part unspecified, without perforation or abscess without bleeding (principal); E03.9 Hypothyroidism, unspecified; E78.00 Pure hypercholesterolemia, unspecified; E78.5 Hyperlipidemia, unspecified; M47.816 Spondylosis without myelopathy or radiculopathy, lumbar region; M51.36 Other intervertebral disc degeneration, lumbar region; M51.37 Other intervertebral disc degeneration, lumbosacral region; Z90.49 Acquired absence of other specified parts of digestive tract; Z90.710 Acquired absence of both cervix and uterus; Z91.040 Latex allergy status; F32.9 Major depressive disorder, single episode, unspecified; F41.9 Anxiety disorder, unspecified; Z20.828 Contact with and (suspected) exposure to other viral communicable diseases; Z88.8 Allergy status to other drugs, medicaments and biological substances
CPT/HCPCS: 36415; 74176; 80053; 80307; 81001; 83690; 83735; 85025; 87426; 96361; 96365; 96366; 96375; 99285; G0480; J0744; J2270; J2405; J3490; J7030; P9612; 97110-GP; 97116-GP; 97530-GO; 97535-GO; G0378; U0003-CS